=== PATIENT | male | born 1970 | race Caucasian/White ===

== ENCOUNTER 2021-05-07 09:54 | Inpatient (IN) | payer OTHER, SELFPAY ==
[2021-05-07] VITALS (22 sets, daily range): BP systolic 118–158; BP diastolic 84–120; PULSE 77–115; RESP 10–23; TEMP 36.6–37; O2SAT 95–100; BMI 48.2; BMI 48.0
--- NOTE | 2021-05-07 10:03 | EKG12_ITS ---
Test Reason : CP Blood Pressure : / mmHG Vent. Rate : 119 BPM Atrial Rate : 122 BPM P-R Int : 000 ms QRS Dur : 078 ms QT Int : 296 ms P-R-T Axes : 000 066 043 degrees QTc Int : 416 ms Atrial fibrillation with rapid ventricular response Abnormal ECG Confirmed by GALINA COHEN, RASTA ([id number]), editor index ELIF BRADFORD ([id number]) on 05/09/2021 8:37:15 AM Referred By: SHANNON Confirmed By:RASTA MOJICA MD
--- NOTE | 2021-05-07 10:06 | ED.VIS.CHEST ---
HPI History of Present Illness Chief Complaint: Chest Pain Detail of Chief Complaint: Chest pain and shortness of breath for 2 months Informant: patient Onset/Context/Timing Timing: Continuous Quality: Positive for Pressure Narrative Narrative: Patient presents to the emergency department after being evaluated at urgent care today. Patient states that over the last 2 months has been having chest pressure and shortness of breath with activity and exertion. Patient states that he breaks out into a cold sweat. Patient had an illness about 2 months ago where he was having to use his inhaler frequently and last about 12 days. He did not get tested for COVID-19. Patient states is not been right since that time. Patient was noted to be in A. fib RVR at urgent care and referred to the emergency department. Patient does not have a history of A. fib. He is a diabetic and has history of asthma. Prior Similar Symptoms: No CVD Risk Factors: Positive for Diabetes; Negative for Family History 1' </=55 and Smoking PE Risk Factors: Negative for Recent Travel/Surgery, Recent Immobilization, Prior DVT or PE and Cancer [facility] Medical History (Updated 05/07/21 @ 12:[address] Gisela Rodriguez, ) COPD (chronic obstructive pulmonary disease) Diabetes High cholesterol Hypertension Pneumonia Home Medications albuterol 2 mcg INHALATION Q4H PRN PRN 05/07/21 [History Last Taken Unknown] amlodipine 10 mg PO DAILY 05/07/21 [History Last Taken Unknown] carvedilol 25 mg PO BID 05/07/21 [History Last Taken Unknown] cyclobenzaprine 10 mg PO TID PRN 05/07/21 [History Last Taken Unknown] insulin glargine [Lantus Solostar U-100 Insulin] 33 unit SUBCUT BID 05/07/21 [History Last Taken Unknown] insulin lispro [Humalog U-100 Insulin] 20 unit SUBCUT TID 05/07/21 [History Last Taken Unknown] losartan 100 mg PO DAILY 05/07/21 [History Last Taken Unknown] omeprazole [Prilosec] 20 mg PO BID 05/07/21 [History Last Taken Unknown] Allergy/AdvReac Type Severity Reaction Status Date / Time gabapentin AdvReac Other Verified 05/07/21 09:54 tramadol AdvReac Other Verified 05/07/21 09:54 Surgical History (Updated 05/07/21 @ 10:05 by Jesus Colon) H/O rotator cuff surgery Social History Smoking Status: Current every day smoker tobacco type: cigarettes ROS ROS ED Review of Systems ROS Unobtainable: other Constitutional Constitutional ED: Reports lethargy; Denies chills, fever(s), sweats or weight loss Eyes Eyes: Denies blurry vision, change in vision or diplopia ENT ENT ED: Denies rhinorrhea or sore throat Cardiovascular Cardiovascular: Reports chest pain and racing heartbeat; Denies orthopnea Respiratory/Chest Respiratory/Chest: Reports dyspnea and dyspnea on exertion; Denies cough, orthopnea or sputum Gastrointestinal Gastrointestinal: Denies abdominal pain, diarrhea, nausea or vomiting Genitourinary Genitourinary ED: Denies dysuria, hematuria or urinary frequency Musculoskeletal Musculoskeletal: Denies arthralgias, back pain, myalgias or neck pain Integumentary Denies abscess, Abrasions or rash Neurologic Neurologic: Denies headache(s) or weakness Psychiatric Psychiatric: Denies anxiety, depression or suicidal thoughts Endocrine Endocrinology: Denies polydipsia, polyphagia or polyuria Hematologic/Lymphatic Hematologic/Lymphatic: Denies easy bleeding, easy bruising or lymphadenopathy Allergic/Immunologic Allergic/Immunologic ED: Denies mouth swelling, tongue swelling or urticaria EXAM Physical Exam Const Vital Signs: 05/07/21 09:55 05/07/21 10:04 05/07/21 10:07 Temperature 98.6 F Temperature Source Temporal Pulse Rate 77 Respiratory Rate 16 Respiratory Effort Normal Non-Labored Respiratory Pattern Normal Blood Pressure 158/96 H Blood Pressure Mean 116 Pulse Ox 96 Oxygen Delivery Method Room Air Room Air 05/07/21 10:56 05/07/21 11:24 05/07/21 11:54 Temperature 97.8 F Temperature Source Temporal Pulse Rate 95 103 H 103 H Respiratory Rate 11 L 10 L 14 Respiratory Effort Respiratory Pattern Blood Pressure 131/86 H 131/92 H 129/98 H Blood Pressure Mean 101 105 108 Pulse Ox 97 97 95 Oxygen Delivery Method Room Air Room Air 05/07/21 12:00 Temperature Temperature Source Pulse Rate 83 Respiratory Rate Respiratory Effort Respiratory Pattern Blood Pressure Blood Pressure Mean Pulse Ox Oxygen Delivery Method Positive well nourished and well developed General Appearance ED: well developed and NAD HEENT Reports TM's clear and moist mucous membranes normocephalic and atraumatic; Negative for trauma or tenderness Tympanic Membrane ED: Yes TM's clear Eyes PERRL and EOMs intact bilaterally General Eye ED: Negative for pale conjunctiva or scleral icterus Neck no lymphadenopathy, supple and no JVD General: Negative for tenderness Chest Wall inspection of chest normal and palpation of chest normal Chest: Negative for tenderness Resp normal respiratory effort and clear to auscultation bilaterally Effort and Inspection: Negative for respiratory distress or pain with movement Auscultation: Negative for rhonchi, wheezes or diminished lung sounds Cardio S1 normal heart sound, S2 normal heart sound and no murmurs; Negative for regular rate or regular rhythm Rate: tachycardic and other Other Details: Irregularly irregular and tachycardic Peripheral Pulses: pulses 2+ throughout GI normal to inspection, nondistended, normoactive bowel sounds, soft to palpation, non-tender, non-distended and no masses Back/Spine no CVA tenderness and no thoracic nor lumbar tenderness Extremity normal to inspection General Extremety ED: Negative for edema General Extremity: Negative for edema Neuro oriented x3, CN's II-XII intact bilaterally, no sensory deficits noted and gait normal Sensorium / Orientation: awake, alert, oriented to person, oriented to place and oriented to time Motor Exam: strength 5/5 throughout and strength abnormal Psych mental status grossly normal Skin no rashes or lesions noted and no wounds Heart Score History: Moderately Suspicious ECG: Nonspecific Repolarization Age: >45 - <65 years Risk Factors: 1 or 2 Risk Factors Troponin: </= Normal Limit Score: 4 MDM MDM Lab Data Labs: Laboratory Results - last 24 hr 05/07/21 05/07/21 05/07/21 10:20 10:20 10:20 WBC 10.8 RBC 4.89 Hgb 15.1 Hct 46.3 MCV 94.7 H MCH 30.9 MCHC 32.6 RDW Std Deviation 44.6 H RDW Coeff of Russ 13.0 Plt Count 206 MPV 11.3 Immature Gran % (Auto) 0.200 Neut % (Auto) 70.4 H Lymph % (Auto) 21.7 [place] % (Auto) 6.9 Eos % (Auto) 0.5 Baso % (Auto) 0.3 Absolute Neuts (auto) 7.6 Absolute Lymphs (auto) 2.34 Nucleated RBC % 0 PT 14.0 INR 1.1 APTT 29.3 D-Dimer Quant (PE/DVT) 0.37 Sodium 139 Potassium 4.0 Chloride 106 Carbon Dioxide 28.0 Anion Gap 5 BUN 14 Creatinine 1.13 Estim Creat Clear Calc 79.85 Est GFR (MDRD) Af Amer 88 Est GFR (MDRD) Non-Af 73 BUN/Creatinine Ratio 12.4 Glucose 161 H Calcium 8.9 Troponin I < 0.015 B-Natriuretic Peptide 05/07/21 10:20 WBC RBC Hgb Hct MCV MCH MCHC RDW Std Deviation RDW Coeff of Russ Plt Count MPV Immature Gran % (Auto) Neut % (Auto) Lymph % (Auto) [place] % (Auto) Eos % (Auto) Baso % (Auto) Absolute Neuts (auto) Absolute Lymphs (auto) Nucleated RBC % PT INR APTT D-Dimer Quant (PE/DVT) Sodium Potassium Chloride Carbon Dioxide Anion Gap BUN Creatinine Estim Creat Clear Calc Est GFR (MDRD) Af Amer Est GFR (MDRD) Non-Af BUN/Creatinine Ratio Glucose Calcium Troponin I B-Natriuretic Peptide 438.3 H Radiography Diagnostic Testing: Radiology Impression Chest X-Ray 05/07/21 10:15 IMPRESSION: Normal x-ray examination of the chest. Electronically Signed: Tim Lang MD at 10:50 EDT , Service support , Discharge Plan Triage Chief Complaint: Chest Pain ED Provider: Gisela Rodriguez Dx/Rx/DC Orders Clinical Impression: Atrial fibrillation with rapid ventricular response, Chest pain, Exertional dyspnea Prescriptions: No Action cyclobenzaprine 10 mg Tablet 10 mg PO TID PRN (Reason: Muscle Spasm) RF: 0 carvedilol 25 mg Tablet 25 mg PO BID RF: 0 amlodipine 10 mg Tablet 10 mg PO DAILY RF: 0 omeprazole [Prilosec] 20 mg Capsule,Delayed Release(Dr/Ec) 20 mg PO BID RF: 0 albuterol 90 mcg/actuation Aerosol 2 mcg INHALATION Q4H PRN PRN (Reason: SOB) RF: 0 losartan 100 mg Tablet 100 mg PO DAILY RF: 0 Humalog U-100 Insulin 100 unit/mL Cartridge 20 unit SUBCUT TID RF: 0 Lantus Solostar U-100 Insulin 100 unit/mL (3 mL) Insulin Pen 33 unit SUBCUT BID RF: 0 Primary Care Provider: Ryan Colbert Referrals: Ryan Colbert MD [Primary Care Provider] - Disposition Disposition: Acute Care Hospital [facility]
[2021-05-07] MEDS: Aspirin 81 MG TAB.CHEW 324 MG PO (10:12)
[2021-05-07] MEDS: 0.9% Normal Saline 1,000 ML 150 ML IV (10:13)
[2021-05-07] MEDS: dilTIAZem 25 MG/5 ML Vial 20 MG IV BOLUS (10:14)
--- NOTE | 2021-05-07 10:15 | RAD_ITS ---
STUDY: X-RAY CHEST REASON FOR EXAM: Male, 50 years old. Chest pain TECHNIQUE: Single AP portable view of the chest. COMPARISON: Comparison is made with prior study dated 08/21/2014. FINDINGS: EKG electrodes are seen. The lungs are clear and expanded. There is no demonstrated pleural abnormality. Normal size heart. Normal mediastinum and carlyn. Normal visualized pulmonary arteries. Normal visualized aortic arch and descending thoracic aorta. Normal visualized thoracic spine. Normal visualized ribs, clavicles, and shoulders. There is no demonstrated abnormality of the visualized soft tissue structures of the upper abdomen. RAD/Chest 1 View (Portable) IMPRESSION: Normal x-ray examination of the chest. Electronically Signed: Tim Lang MD at 10:50 EDT , Service support ,
[2021-05-07 10:31] LABS: Absolute Lymphocyte Count 2.34 X10^3/uL (0.83-4.51); Absolute Neutrophil Count 7.6 X10^3/uL (2.0-7.7); Basophil# 0.03 X10^3/uL; Basophil% 0.3 % (0-1); Eosinophil# 0.05 X10^3/uL; Eosinophils% 0.5 % (0-5); Hematocrit 46.3 % (40-54); Hemoglobin 15.1 g/dL (13.0-16.5); Lymphocyte # 2.34 X10^3/ul (0.83-4.51); Lymphocyte % 21.7 % (19-41); Mean Corp Hgb Conc 32.6 g/dL (32-36); Mean Corpuscular Hgb 30.9 pg (27.0-32.0); Mean Corpuscular Volume 94.7 fL (80-94); Mean Platelet Vol. 11.3 fl (6.2-12.0); Monocyte# 0.74 X10^3/uL; Monocyte% 6.9 % (0-10); NRBC Flagged by Analyzer 0 % (0-5); Neutrophil % 70.4 % (47-70); Platelet Count 206 K/mm3 (150-450); RBC Distribution Width SD 44.6 fl (35.1-43.9); Red Blood Count 4.89 M/mm3 (4.6-6.2); White Blood Count 10.8 K/mm3 (4.4-11.0)
[2021-05-07 10:37] LABS: International Normalized Ratio 1.1
[2021-05-07 10:38] LABS: Partial Thromboplast Time 29.3 Seconds (24.1-36.2)
[2021-05-07 10:40] LABS: D-Dimer Quantitative (DVT/PE) 0.37 FEU/ug/m (0.27-0.49)
[2021-05-07 10:44] LABS: Anion Gap 5 (5-15); BUN 14 mg/dL (7-18); BUN/Creat Ratio 12.4 RATIO (10-20); Calcium,Total 8.9 mg/dL (8.5-10.1); Chloride 106 mmol/L (98-107); Creatinine, Serum 1.13 mg/dL (0.70-1.30); EST Glomerular Filtration Rate 73 mL/min (>60); Est Glom Filt Rate - Afr Amer 88 mL/min (>60); Estimated Creatinine Clearance 79.85 ml/min; Glucose 161 mg/dL (74-106); Sodium Level 139 mmol/L (136-145)
[2021-05-07 10:47] LABS: BNP,B-Type NATRIURETIC PEPTIDE 438.3 pg/mL (0-100)
--- NOTE | 2021-05-07 11:25 | ED.RN ---
confirmed with provider that the pt is to have a cardizem drip.
--- NOTE | 2021-05-07 11:36 | NURSING ---
HOSPITALIST FOR DR HOPPER
--- NOTE | 2021-05-07 11:42 | HP.PCM.HOS_ITS ---
HPI - General General Date of Admission: 05/07/21 Date of Service: 05/07/21 Chief Complaint: SOB - 2 months HPI Narrative JHONATANNavi JORDAN, is a 50 M who presents with progressive shortness of breath ongoing for 2 months. Patient states that he had upper respiratory infection a couple of months ago. He subsequently has been progressive shortness of breath. He has associated chest discomfort and diaphoresis. This was getting progressively weak that he could only walk a few steps and be out of breath. He denied orthopnea or PND. He states he has chronic lower extremity leg edema. He went to see his primary care doctor and was referred to the ED. [facility] Medical History (Updated 05/07/21 @ 13:[address] Rand Crowley MD) Abnormal endoscopy of upper gastrointestinal tract COPD (chronic obstructive pulmonary disease) Diabetes High cholesterol Hypertension Pneumonia Home Medications amlodipine 10 mg PO DAILY 05/07/21 [History Last Taken 05/07/21] carvedilol 25 mg PO BID 05/07/21 [History Last Taken 05/07/21] insulin glargine [Lantus Solostar U-100 Insulin] 33 unit SUBCUT BID 05/07/21 [History Last Taken 05/06/21] insulin lispro [Humalog U-100 Insulin] 20 unit SUBCUT TID 05/07/21 [History Last Taken 05/06/21 04:00] losartan 100 mg PO DAILY 05/07/21 [History Last Taken 05/07/21] omeprazole [Prilosec] 20 mg PO BID 05/07/21 [History Last Taken 05/07/21] Allergy/AdvReac Type Severity Reaction Status Date / Time gabapentin AdvReac Other Verified 05/07/21 09:54 tramadol AdvReac Other Verified 05/07/21 09:54 Family History (Updated 05/07/21 @ 13:[address] Rand Crowley MD) Father Cancer Mother Diabetes Surgical History (Updated 05/07/21 @ 10:05 by Jesus Colon) H/O rotator cuff surgery Social History (Updated 05/07/21 @ 13:[address] Rand Crowley MD) Smoking Status: Former smoker alcohol intake: current ROS ROS Narrative Constitutional: Denies: Anorexia, Chills, Fever, Night Sweats, Weight Change Eyes: Denies: Blurred vision, Cataracts, Conjunctivae Inflammation, Pain, Redn ess, Vision Change HEENT: Denies: Difficulty Hearing, Difficulty Swallowing, Head Aches, Hearing Changes, Sinus Congestion, Sinus Drainage Cardiovascular: Admits to chest Pain, Orthopnea, Palpitations, shortness of breath Respiratory: Denies: Cough, Sputum production Gastrointestinal: Denies: Abdominal Pain, Nausea, Vomiting Genitourinary: Denies: Dysuria Musculoskeletal: Denies: Joint Pain, Joint stiffness, Joint swelling, Joint Tenderness Skin: Denies: Rash, Wounds Neurological: Denies: Numbness, Tingling, Focal weakness Vital Signs Vital Signs Vital Signs: 05/07/21 09:55 05/07/21 10:04 05/07/21 10:07 Temperature 98.6 F Temperature Source Temporal Pulse Rate 77 Respiratory Rate 16 Respiratory Effort Normal Non-Labored Respiratory Pattern Normal Blood Pressure 158/96 H Blood Pressure Mean 116 Pulse Ox 96 Oxygen Delivery Method Room Air Room Air 05/07/21 10:56 05/07/21 11:24 Temperature Temperature Source Pulse Rate 95 103 H Respiratory Rate 11 L 10 L Respiratory Effort Respiratory Pattern Blood Pressure 131/86 H 131/92 H Blood Pressure Mean 101 105 Pulse Ox 97 97 Oxygen Delivery Method Room Air Room Air Weight Weight: 152.3 kg Body Mass Index (BMI) 48.2 Physical Exam Narrative Physical exam: General: Alert, Oriented x3, Cooperative, No apparent distress, Well developed HEENT: Atraumatic Oral: Moist Mucosa Neck: Supple Lungs: Clear to auscultation Cardiovascular: HS I+II, regular, no murmurs Abdomen: Bowel Sounds Present, Soft, Non Tender Extremities: No edema Skin: No rashes, No breakdown Neurological: Grossly intact Psych/Mental Status: Appropriate Results Lab / Micro Data Result Diagrams: 05/08/21 06:30 05/08/21 06:30 Labs: Laboratory Results - last 24 hr 05/07/21 05/07/21 05/07/21 10:20 10:20 10:20 WBC 10.8 RBC 4.89 Hgb 15.1 Hct 46.3 MCV 94.7 H MCH 30.9 MCHC 32.6 RDW Std Deviation 44.6 H RDW Coeff of Russ 13.0 Plt Count 206 MPV 11.3 Immature Gran % (Auto) 0.200 Neut % (Auto) 70.4 H Lymph % (Auto) 21.7 [place] % (Auto) 6.9 Eos % (Auto) 0.5 Baso % (Auto) 0.3 Absolute Neuts (auto) 7.6 Absolute Lymphs (auto) 2.34 Nucleated RBC % 0 PT 14.0 INR 1.1 APTT 29.3 D-Dimer Quant (PE/DVT) 0.37 Sodium 139 Potassium 4.0 Chloride 106 Carbon Dioxide 28.0 Anion Gap 5 BUN 14 Creatinine 1.13 Estim Creat Clear Calc 79.85 Est GFR (MDRD) Af Amer 88 Est GFR (MDRD) Non-Af 73 BUN/Creatinine Ratio 12.4 Glucose 161 H Calcium 8.9 Troponin I < 0.015 B-Natriuretic Peptide 05/07/21 10:20 WBC RBC Hgb Hct MCV MCH MCHC RDW Std Deviation RDW Coeff of Russ Plt Count MPV Immature Gran % (Auto) Neut % (Auto) Lymph % (Auto) [place] % (Auto) Eos % (Auto) Baso % (Auto) Absolute Neuts (auto) Absolute Lymphs (auto) Nucleated RBC % PT INR APTT D-Dimer Quant (PE/DVT) Sodium Potassium Chloride Carbon Dioxide Anion Gap BUN Creatinine Estim Creat Clear Calc Est GFR (MDRD) Af Amer Est GFR (MDRD) Non-Af BUN/Creatinine Ratio Glucose Calcium Troponin I B-Natriuretic Peptide 438.3 H Radiology Impression Chest X-Ray 05/07/21 10:15 IMPRESSION: Normal x-ray examination of the chest. Electronically Signed: Tim Lang MD at 10:50 EDT , Service support , Assessment & Plan Assessment/Plan (1) Benign essential hypertension: (2) Morbid obesity: (3) Atrial fibrillation with rapid ventricular response: (4) Chest pain: QUALIFIERS: Chest pain type: unspecified Qualified Code(s): R07.9 - Chest pain, unspecified (5) CHF exacerbation: QUALIFIERS: Heart failure type: unspecified Qualified Code(s): I50.9 - Heart failure, unspecified PLAN: 1. A fib with RVR, newly diagnosed, in a patient with multiple comorbidities Started on Cardizem bolus and drip, will continue the same, continue on home carvedilol Check magnesium level 2D echo, Lovenox therapeutic dosing If patient does not convert to sinus rhythm, will consult cardiology to establish care 2. Acute CHF, no previous history of CHF, admitting BNPep is 438.3 Will get 2D echo, start on Lasix, CHF protocol 3. Hypertension, fairly uncontrolled, continue on home amlodipine, carvedilol, losartan 4. 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 Morbid obesity, BMI 48.2, lifestyle modification recommended 6. DVT PPx - therapeutic Lovenox SC Charges/Coding Visit Charges Inpatient E&M: 70439 Init Hosp L3
--- NOTE | 2021-05-07 12:06 | NURSING ---
[facility]
--- NOTE | 2021-05-07 13:33 | ECHOCS_ITS ---
Reason For Study: CHF Procedure This was a 2D Doppler, Color Flow transthoracic echocardiogram. The study was technically difficult. Contrast injection was performed. Exam performed portable in patient room. Left Ventricle Based upon the 2D echocardiographic and contrast enhanced images obtained there appears to be grossly normal left ventricular size, wall motion, and systolic function. The estimated ejection fraction is 55 %. Unable to assess diastolic dysfunction. Right Ventricle Normal RV size. Normal systolic function. Atria The left atrium is mildly enlarged. Normal right atrium. No doppler evidence for ASD. Mitral Valve There is no mitral annular calcification. Normal mitral valve. Trivial mitral valve insufficiency. Tricuspid Valve Normal tricuspid valve. Trivial tricuspid valve insufficiency. Right ventricular systolic pressure estimated to be 28 mmHg. Aortic Valve Trisinus/trileaflet aortic valve. Normal aortic valve. Pulmonic Valve The pulmonic valve is not well visualized. Great Vessels Mildly dilated aortic root. Pericardium/Pleural Trivial pericardial effusion. There are no echocardiographic indications of cardiac tamponade. Medication Diluted definity 2ml given slow IV push to enhance endocardial definition. MMode/2D Measurements & Calculations LVIDd: 5.7 cm IVSd: 1.1 cm Ao root diam: 4.2 cm LVIDs: 3.9 cm LVPWd: 1.1 cm RVDd: 3.8 cm FS: 30.5 % LAV(MOD-sp4): 91.9 ml LVAd ap4: 41.3 cm2 LVAs ap2: 24.3 cm2 LVLd ap4: 8.5 cm LVLs ap2: 6.0 cm EDV(MOD-sp4): 162.1 ml ESV(MOD-sp2): 81.7 ml EDV(sp4-el): 170.0 ml ESV(sp2-el): 84.2 ml LVAs ap4: 25.1 cm2 LVLs ap4: 7.4 cm ESV(MOD-sp4): 71.1 ml ESV(sp4-el): 72.1 ml EF(MOD-sp4): 56.1 % EF(sp4-el): 57.6 % SV(MOD-sp4): 90.9 ml SV(sp4-el): 97.9 ml LA A4 area: 25.6 cm2 LA dimension(2D): 4.6 cm RA A4 area: 15.8 cm2 Doppler Measurements & Calculations MV E max rios: 114.6 cm/sec Ao V2 max: 139.5 cm/sec LV V1 max: 84.0 cm/sec Ao max P.8 mmHg LV V1 max P.9 mmHg Ao V2 mean: 97.2 cm/sec Ao mean P.2 mmHg Ao V2 VTI: 25.5 cm PA V2 max: 66.9 cm/sec TR max rios: 251.9 cm/sec TR max P.4 mmHg ECHO/Echo Complete W/ Contrast Interpretation Summary The study was technically difficult. Contrast injection was performed. Based upon the 2D echocardiographic and contrast enhanced images obtained there appears to be grossly normal left ventricular size, wall motion, and systolic function. The estimated ejection fraction is 55 %. The left atrium is mildly enlarged. Trivial mitral valve insufficiency. Trivial tricuspid valve insufficiency. Mildly dilated aortic root. Trivial pericardial effusion. There are no echocardiographic indications of cardiac tamponade. Right ventricular systolic pressure estimated to be 28 mmHg. Unable to assess diastolic dysfunction. Ordering Physician: Rand Crowley Referring Physician: Kevin Colbert Performed By: Usha Howard, TAMELA, RVT
[2021-05-07] MEDS: Enoxaparin 150 MG/ML Syringe SC (16:16)
[2021-05-07] MEDS: Furosemide 40 MG/4 ML Vial IV (16:16)
[2021-05-07] MEDS: Carvedilol 25 MG Tablet PO (16:16)
[2021-05-07 16:36] LABS: Bedside Glucose 193 mg/dL (70-110)
[2021-05-07] MEDS: Insulin Lispro 100 UNIT/ML INSULN.PEN SC (21:21)
[2021-05-07] MEDS: Pantoprazole Sodium 20 MG Tablet PO (21:23)
[2021-05-07 21:31] LABS: Bedside Glucose 215 mg/dL (70-110)
[2021-05-08] VITALS (34 sets, daily range): BP systolic 104–143; BP diastolic 79–111; PULSE 80–117; RESP 11–26; TEMP 36.4–37.2; O2SAT 95–100
--- NOTE | 2021-05-08 05:14 | NURSING ---
Previous RN paused cardizem gtt at 0230 d/t pt having frequent pauses and pt's rhythm was in the 80s. This RN restarted gtt at 0515 d/t pt still being in afib and no further pauses noted. Po RN
[2021-05-08] MEDS: Enoxaparin 150 MG/ML Syringe SC (05:48)
[2021-05-08 06:43] LABS: Absolute Lymphocyte Count 1.65 X10^3/uL (0.83-4.51); Absolute Neutrophil Count 4.1 X10^3/uL (2.0-7.7); Basophil# 0.02 X10^3/uL; Basophil% 0.3 % (0-1); Eosinophil# 0.06 X10^3/uL; Eosinophils% 0.9 % (0-5); Hematocrit 45.8 % (40-54); Hemoglobin 14.8 g/dL (13.0-16.5); Lymphocyte # 1.65 X10^3/ul (0.83-4.51); Mean Corp Hgb Conc 32.3 g/dL (32-36); Mean Corpuscular Hgb 31.1 pg (27.0-32.0); Mean Corpuscular Volume 96.2 fL (80-94); Mean Platelet Vol. 11.1 fl (6.2-12.0); Monocyte# 0.51 X10^3/uL; NRBC Flagged by Analyzer 0 % (0-5); Neutrophil # 4.09 X10^3/uL (2.7-7.7); Neutrophil % 64.6 % (47-70); Platelet Count 175 K/mm3 (150-450); RBC Distribution Width CV 12.9 % (11.6-14.6); RBC Distribution Width SD 45.8 fl (35.1-43.9); Red Blood Count 4.76 M/mm3 (4.6-6.2); White Blood Count 6.3 K/mm3 (4.4-11.0)
[2021-05-08 07:12] LABS: ALB/GLOB Ratio 1.2 RATIO (0.9-2.4); AST(SGOT) 15 U/L (15-37); Alanine Aminotransfer ALT/SGPT 89 U/L (16-61); Albumin, Serum 3.4 g/dL (3.2-5.0); Alkaline Phosphatase 78 U/L (45-117); Anion Gap 3 (5-15); BUN 13 mg/dL (7-18); BUN/Creat Ratio 11.8 RATIO (10-20); Calcium,Total 8.8 mg/dL (8.5-10.1); Chloride 106 mmol/L (98-107); EST Glomerular Filtration Rate 75 mL/min (>60); Est Glom Filt Rate - Afr Amer 91 mL/min (>60); Estimated Creatinine Clearance 82.03 ml/min; Globulin 2.9 g/dL (2.2-4.2); Glucose 139 mg/dL (74-106); Protein, Total 6.3 g/dL (6.4-8.2); Sodium Level 142 mmol/L (136-145)
[2021-05-08 08:36] LABS: Bedside Glucose 132 mg/dL (70-110)
--- NOTE | 2021-05-08 08:40 | PN.HOSP_ITS ---
Subjective Subjective Patient was seen and examined. He feels much better. Had any chest pain or progressive shortness of breath. Not on oxygen. He has been diuresing Objective Data Objective Data Vital Signs: Vital Signs Temp Pulse Resp BP Pulse Ox 97.6 F L 99 17 135/88 H 98 05/08/21 06:00 05/08/21 07:00 05/08/21 07:00 05/08/21 07:00 05/08/21 07:04 Oxygen Flow Rate (L/min) 2 Oxygen Delivery Method Room Air Weight: 152.3 kg Body Mass Index (BMI) 48.0 Intake & Output: Intake and Output for Last 24 Hours 05/06/21 05/07/21 05/08/21 23:59 23:59 23:59 Intake Total 965.50 / 1070.50 196.25 / 196.25 Output Total 600 / 600 Balance 965.50 / 1070.50 -403.75 / -403.75 Lab / Micro Data Result Diagrams: 05/08/21 06:30 05/08/21 06:30 Labs: Laboratory Results - last 24 hr 05/07/21 05/07/21 05/07/21 10:20 10:20 10:20 WBC 10.8 RBC 4.89 Hgb 15.1 Hct 46.3 MCV 94.7 H MCH 30.9 MCHC 32.6 RDW Std Deviation 44.6 H RDW Coeff of Russ 13.0 Plt Count 206 MPV 11.3 Immature Gran % (Auto) 0.200 Neut % (Auto) 70.4 H Lymph % (Auto) 21.7 [place] % (Auto) 6.9 Eos % (Auto) 0.5 Baso % (Auto) 0.3 Absolute Neuts (auto) 7.6 Absolute Lymphs (auto) 2.34 Nucleated RBC % 0 PT 14.0 INR 1.1 APTT 29.3 D-Dimer Quant (PE/DVT) 0.37 Sodium 139 Potassium 4.0 Chloride 106 Carbon Dioxide 28.0 Anion Gap 5 BUN 14 Creatinine 1.13 Estim Creat Clear Calc 79.85 Est GFR (MDRD) Af Amer 88 Est GFR (MDRD) Non-Af 73 BUN/Creatinine Ratio 12.4 Glucose 161 H Calcium 8.9 Magnesium Total Bilirubin AST ALT Alkaline Phosphatase Troponin I < 0.015 B-Natriuretic Peptide Total Protein Albumin Globulin Albumin/Globulin Ratio POC Glucose 06/09/21 06/09/21 06/09/21 10:20 10:20 14:26 WBC RBC Hgb Hct MCV MCH MCHC RDW Std Deviation RDW Coeff of Russ Plt Count MPV Immature Gran % (Auto) Neut % (Auto) Lymph % (Auto) [facility] % (Auto) Eos % (Auto) Baso % (Auto) Absolute Neuts (auto) Absolute Lymphs (auto) Nucleated RBC % PT INR APTT D-Dimer Quant (PE/DVT) Sodium Potassium Chloride Carbon Dioxide Anion Gap BUN Creatinine Estim Creat Clear Calc Est GFR (MDRD) Af Amer Est GFR (MDRD) Non-Af BUN/Creatinine Ratio Glucose Calcium Magnesium 2.0 Total Bilirubin AST ALT Alkaline Phosphatase Troponin I < 0.015 B-Natriuretic Peptide 438.3 H Total Protein Albumin Globulin Albumin/Globulin Ratio POC Glucose 05/07/21 05/07/21 05/07/21 16:10 17:23 21:17 WBC RBC Hgb Hct MCV MCH MCHC RDW Std Deviation RDW Coeff of Russ Plt Count MPV Immature Gran % (Auto) Neut % (Auto) Lymph % (Auto) [facility] % (Auto) Eos % (Auto) Baso % (Auto) Absolute Neuts (auto) Absolute Lymphs (auto) Nucleated RBC % PT INR APTT D-Dimer Quant (PE/DVT) Sodium Potassium Chloride Carbon Dioxide Anion Gap BUN Creatinine Estim Creat Clear Calc Est GFR (MDRD) Af Amer Est GFR (MDRD) Non-Af BUN/Creatinine Ratio Glucose Calcium Magnesium Total Bilirubin AST ALT Alkaline Phosphatase Troponin I < 0.015 B-Natriuretic Peptide Total Protein Albumin Globulin Albumin/Globulin Ratio POC Glucose 193 H 215 H 05/08/21 05/08/21 05/08/21 06:30 06:30 08:26 WBC 6.3 RBC 4.76 Hgb 14.8 Hct 45.8 MCV 96.2 H MCH 31.1 MCHC 32.3 RDW Std Deviation 45.8 H RDW Coeff of Russ 12.9 Plt Count 175 MPV 11.1 Immature Gran % (Auto) 0.200 Neut % (Auto) 64.6 Lymph % (Auto) 26.0 [facility] % (Auto) 8.0 Eos % (Auto) 0.9 Baso % (Auto) 0.3 Absolute Neuts (auto) 4.1 Absolute Lymphs (auto) 1.65 Nucleated RBC % 0 PT INR APTT D-Dimer Quant (PE/DVT) Sodium 142 Potassium 4.0 Chloride 106 Carbon Dioxide 33.0 H Anion Gap 3 L BUN 13 Creatinine 1.10 Estim Creat Clear Calc 82.03 Est GFR (MDRD) Af Amer 91 Est GFR (MDRD) Non-Af 75 BUN/Creatinine Ratio 11.8 Glucose 139 H Calcium 8.8 Magnesium Total Bilirubin 0.90 AST 15 ALT 89 H Alkaline Phosphatase 78 Troponin I B-Natriuretic Peptide Total Protein 6.3 L Albumin 3.4 Globulin 2.9 Albumin/Globulin Ratio 1.2 POC Glucose 132 H Micro: Microbiology 05/07/21 11:45 Mucosa - Nose SARS-CoV-2 Antigen (Rapid) - Final Radiography Diagnostic Testing: Radiology Impression Chest X-Ray 05/07/21 10:15 IMPRESSION: Normal x-ray examination of the chest. Electronically Signed: Tim Lang MD at 10:50 EDT , Service support , Echocardiogram 05/07/21 13:33 Interpretation Summary The study was technically difficult. Contrast injection was performed. Based upon the 2D echocardiographic and contrast enhanced images obtained there appears to be grossly normal left ventricular size, wall motion, and systolic function. The estimated ejection fraction is 55 %. The left atrium is mildly enlarged. Trivial mitral valve insufficiency. Trivial tricuspid valve insufficiency. Mildly dilated aortic root. Trivial pericardial effusion. There are no echocardiographic indications of cardiac tamponade. Right ventricular systolic pressure estimated to be 28 mmHg. Unable to assess diastolic dysfunction. Ordering Physician: Rand Crowley Referring Physician: Kevin Colbert Performed By: Usha Howard, TAMELA, RVT Physical Exam Narrative Physical exam: General: Alert, Oriented x3, Cooperative, No apparent distress, Well developed HEENT: Atraumatic Oral: Moist Mucosa Neck: Supple Lungs: Clear to auscultation Cardiovascular: HS I+II, regular, no murmurs Abdomen: Bowel Sounds Present, Soft, Non Tender Extremities: No edema Assessment & Plan Assessment/Plan (1) Benign essential hypertension: (2) Morbid obesity: (3) Atrial fibrillation with rapid ventricular response: (4) Chest pain: QUALIFIERS: Chest pain type: unspecified Qualified Code(s): R07.9 - Chest pain, unspecified (5) CHF exacerbation: QUALIFIERS: Heart failure type: unspecified Qualified Code(s): I50.9 - Heart failure, unspecified PLAN: 1. A fib with RVR, newly diagnosed, remains in A. fib, on Cardizem drip 2D echo shows EF of 55%, normal LV function, left atrium slightly enlarged. Hold continue on carvedilol, wean off Cardizem, cardiology consult Continue on therapeutic Lovenox -will switch to Eliquis at discharge 2. Elevated BNPep likely secondary to #1. Probable Acute CHF, diastolic dysfunction Admitting BNPep 438.3, Continue on IV Lasix Twice daily, cardiology consult 3. History of gastric ulcers/hiatal hernia, status post EGD in [address] Escalera who did his EGD; patient had erosive gastritis continue on PPI 4. Hypertension, controlled, continue on home amlodipine, carvedilol, losartan 5. 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 Morbid obesity, BMI 48.2, lifestyle modification recommended 7. DVT PPx - therapeutic Lovenox SC Charges/Coding Visit Charges Inpatient E&M: 88903 Subs Hosp L3
[2021-05-08] MEDS: amLODIPine 10 MG Tablet PO (09:33)
[2021-05-08] MEDS: 0.9% Saline Lock 10 ML Syringe IV ×3 (09:33→17:13)
[2021-05-08] MEDS: Carvedilol 25 MG Tablet PO ×2 (09:33→21:33)
[2021-05-08] MEDS: Furosemide 40 MG/4 ML Vial IV ×2 (09:34→17:13)
[2021-05-08] MEDS: Pantoprazole Sodium 20 MG Tablet PO ×2 (09:34→21:33)
[2021-05-08] MEDS: Losartan Potassium 100 MG Tablet PO (09:34)
--- NOTE | 2021-05-08 10:50 | CASEMGMT ---
RN CM [employer] CM to room to meet with patient for initial transition planning/care coordination assessment. AURELIA DAIGLE introduced self and role at [facility]. Pt voices understanding and consents to assessment at this time. Pt resting in bed in no distress at this time. Pt is A/O at this time and answers all questions appropriately. Care providers, pharmacy, and demographics verified/updated at this time. PCP: Dr Colbert Specialists: Maty BOWER, Lora Tran, @ [facility] Preferred Pharmacy: [facility] Retail Insurance:MMO Prescription Benefit: Yes Living Will/HPOA: States does not have LW or HCPOA . Interested in more information but states does not want to talk with SW at this time to complete paperwork. Provided information on advanced directives and given Social Service rac card with number to call if chooses in the future to utilize [facility] social work for advanced directive completion. Educated patient that, if patient so chooses, can come back to [facility] and meet with a SW as an outpatient to complete health care advanced directives. Patient expresses understanding. LNOK: 2 sons: Ko and Jamel. Pt does not wish for them to be added on demographics w/their contact info at this time. Friend/neighbor, Allyssa Mckay, is listed as only contact. Pt states, if needed, Allyssa would know how to get in contact with his sons. Living Arrangements: Lives alone in one-story home w/5 steps to enter. Denies difficulty w/stairs. Independent w/ADL's and IADL's. Works full-time. Transportation: Pt states drives self and states no transportation concerns at this time. DME: States has the following DME: working glucometer w/supplies, nebulizer, BP machine. Pt states no need for further DME at this time. HHC/SNF: No history of either. No needs identified. Pt wishes to return home and states has no concerns with going home at time of discharge. CM to follow for any discharge planning/needs. Pt voices no concerns/needs at this time. Advised pt to ask for CM if any questions/concerns/needs arise. Voices understanding. PLAN: Home Silverio SPENCE RN, CM
[2021-05-08 11:20] LABS: Bedside Glucose 138 mg/dL (70-110)
[2021-05-08] MEDS: Insulin Lispro 100 UNIT/ML INSULN.PEN 20 UNIT SC ×2 (11:24→17:11)
--- NOTE | 2021-05-08 14:18 | CON.PCM.CA_ITS ---
Assessment & Plan Assessment/Plan (1) Atrial fibrillation with rapid ventricular response: PLAN: 50-year-old patient was admitted with symptoms of exertional dyspnea with a clinical diagnosis of diastolic heart failure with atrial fibrillation rapid ventricular rate Patient known to have history of diabetes, hypertension and morbidly obese He is a underlying rhythm is A. fib with RVR on admission which is better con trolled on the current medication. Cardiac evaluation with echocardiogram showed preserved LV systolic function with ejection fraction of around 55%, left atrium mildly enlarged with trivial MR. Plan and recommendations; 1. I reviewed all his current medication, based on [id number] risk score is a high risk for stroke Patient had a remote history of erosive gastritis and currently he is on proton pump inhibitor. We will start the patient on Eliquis/apixaban 5 mg twice daily 2. We will continue on beta-laura carvedilol 3. I added calcium channel laura Cardizem CD 120 mg twice daily for better control of his ventricular rate 4. Would recommend to follow-up as an outpatient with Dr. Pierce for continuation of cardiac care plan. 5. Also patient can be evaluated as outpatient with nuclear stress test to assess for myocardial ischemia. Due to the multiple risk factors and the recent onset of the A. fib. 6. If patient continues to be in pain A. fib as an outpatient to consider, synchronized cardioversion DCCV/outpatient setting. (2) CHF exacerbation: QUALIFIERS: Heart failure type: unspecified Qualified Code(s): I50.9 - Heart failure, unspecified (3) Benign essential hypertension: (4) Morbid obesity: (5) Alcohol abuse: (6) Exertional dyspnea: HPI Consult Data Date of Consult: 05/08/21 HPI Narrative HPI Narrative: JHONATAN JORDAN, is a 50 M who presents [facility] Medical History (Updated 05/07/21 @ 13:[address] Rand Crowley MD) Abnormal endoscopy of upper gastrointestinal tract COPD (chronic obstructive pulmonary disease) Diabetes High cholesterol Hypertension Pneumonia Home Medications amlodipine 10 mg PO DAILY 05/07/21 [History Last Taken 05/07/21] carvedilol 25 mg PO BID 05/07/21 [History Last Taken 05/07/21] insulin glargine [Lantus Solostar U-100 Insulin] 33 unit SUBCUT BID 05/07/21 [History Last Taken 05/06/21] insulin lispro [Humalog U-100 Insulin] 20 unit SUBCUT TID 05/07/21 [History Last Taken 05/06/21 04:00] losartan 100 mg PO DAILY 05/07/21 [History Last Taken 05/07/21] omeprazole [Prilosec] 20 mg PO BID 05/07/21 [History Last Taken 05/07/21] Allergy/AdvReac Type Severity Reaction Status Date / Time gabapentin AdvReac Other Verified 05/07/21 09:54 tramadol AdvReac Other Verified 05/07/21 09:54 Family History (Updated 05/07/21 @ 13:[address] Rand Crowley MD) Father Cancer Mother Diabetes Surgical History (Updated 05/07/21 @ 10:05 by Jesus Colon) H/O rotator cuff surgery Social History (Updated 05/07/21 @ 13:[address] Rand Crowley MD) Smoking Status: Former smoker alcohol intake: current Physical Exam Narrative Patient seen and evaluated at bedside with the nursing staff Comfortable in bed, not in acute distress Alert orientated x3 Cardiovascular examination, has underlying atrial fibrillation. S1-S2 is regular, there is no murmur, there is no gallop rhythm or pericardial rub. Chest examination clear to auscultation bilaterally Examination of the abdomen patient is morbidly obese soft Examination lower extremity no lower extremity edema, no clubbing or cyanosis Pedal pulses palpable +2. Objective Data Vital Signs: Vital Signs Temp Pulse Resp BP Pulse Ox 98.1 F 93 16 134/85 H 97 05/08/21 11:00 05/08/21 11:29 05/08/21 11:00 05/08/21 11:00 05/08/21 11:00 Oxygen Flow Rate (L/min) 2 Oxygen Delivery Method Room Air Weight: 335 lb 12.224 oz Body Mass Index (BMI) 48.0 Intake & Output: Intake and Output for Last 24 Hours 05/06/21 05/07/21 05/08/21 23:59 23:59 23:59 Intake Total 965.50 / 1070.50 481.25 / 481.25 Output Total 2100 / 2100 Balance 965.50 / 1070.50 -1618.75 / -1618.75 Lab / Micro Data Result Diagrams: 05/08/21 06:30 06/10/21 06:30 Labs: Laboratory Results - last 24 hr 05/07/21 05/07/21 05/07/21 14:26 16:10 17:23 WBC RBC Hgb Hct MCV MCH MCHC RDW Std Deviation RDW Coeff of Russ Plt Count MPV Immature Gran % (Auto) Neut % (Auto) Lymph % (Auto) Saunders % (Auto) Eos % (Auto) Baso % (Auto) Absolute Neuts (auto) Absolute Lymphs (auto) Nucleated RBC % Sodium Potassium Chloride Carbon Dioxide Anion Gap BUN Creatinine Estim Creat Clear Calc Est GFR (MDRD) Af Amer Est GFR (MDRD) Non-Af BUN/Creatinine Ratio Glucose Calcium Total Bilirubin AST ALT Alkaline Phosphatase Troponin I < 0.015 < 0.015 Total Protein Albumin Globulin Albumin/Globulin Ratio POC Glucose 193 H 05/07/21 05/08/21 05/08/21 21:17 06:30 06:30 WBC 6.3 RBC 4.76 Hgb 14.8 Hct 45.8 MCV 96.2 H MCH 31.1 MCHC 32.3 RDW Std Deviation 45.8 H RDW Coeff of Russ 12.9 Plt Count 175 MPV 11.1 Immature Gran % (Auto) 0.200 Neut % (Auto) 64.6 Lymph % (Auto) 26.0 Saunders % (Auto) 8.0 Eos % (Auto) 0.9 Baso % (Auto) 0.3 Absolute Neuts (auto) 4.1 Absolute Lymphs (auto) 1.65 Nucleated RBC % 0 Sodium 142 Potassium 4.0 Chloride 106 Carbon Dioxide 33.0 H Anion Gap 3 L BUN 13 Creatinine 1.10 Estim Creat Clear Calc 82.03 Est GFR (MDRD) Af Amer 91 Est GFR (MDRD) Non-Af 75 BUN/Creatinine Ratio 11.8 Glucose 139 H Calcium 8.8 Total Bilirubin 0.90 AST 15 ALT 89 H Alkaline Phosphatase 78 Troponin I Total Protein 6.3 L Albumin 3.4 Globulin 2.9 Albumin/Globulin Ratio 1.2 POC Glucose 215 H 05/08/21 05/08/21 08:26 11:16 WBC RBC Hgb Hct MCV MCH MCHC RDW Std Deviation RDW Coeff of Russ Plt Count MPV Immature Gran % (Auto) Neut % (Auto) Lymph % (Auto) Saunders % (Auto) Eos % (Auto) Baso % (Auto) Absolute Neuts (auto) Absolute Lymphs (auto) Nucleated RBC % Sodium Potassium Chloride Carbon Dioxide Anion Gap BUN Creatinine Estim Creat Clear Calc Est GFR (MDRD) Af Amer Est GFR (MDRD) Non-Af BUN/Creatinine Ratio Glucose Calcium Total Bilirubin AST ALT Alkaline Phosphatase Troponin I Total Protein Albumin Globulin Albumin/Globulin Ratio POC Glucose 132 H 138 H Micro: Microbiology 05/07/21 11:45 Mucosa - Nose SARS-CoV-2 Antigen (Rapid) - Final Cardiology Labs/Tests 05/07/21 14:26: Troponin I < 0.015 05/07/21 17:23: Troponin I < 0.015 05/08/21 06:30: WBC 6.3, RBC 4.76, Hgb 14.8, Hct 45.8, MCV 96.2 H, MCH 31.1, MCHC 32.3, Plt Count 175, MPV 11.1, Immature Gran % (Auto) 0.200, Neut % (Auto) 64.6, Lymph % (Auto) 26.0, Saunders % (Auto) 8.0, Eos % (Auto) 0.9, Baso % (Auto) 0.3, Absolute Neuts (auto) 4.1, Nucleated RBC % 0 05/08/21 06:30: Sodium 142, Potassium 4.0, Chloride 106, Carbon Dioxide 33.0 H, Anion Gap 3 L, BUN 13, Creatinine 1.10, Est GFR (MDRD) Af Amer 91, Est GFR (MDRD) Non-Af 75, BUN/Creatinine Ratio 11.8, Glucose 139 H, Calcium 8.8, Total Bilirubin 0.90 Rhythm: A. fib with RVR EKG: Atrial fibrillation with rapid ventricular rate. ECHO: Preserved LV systolic function with ejection fraction of 55%. Radiography Diagnostic Testing: Radiology Impression Echocardiogram 05/07/21 13:33 Interpretation Summary The study was technically difficult. Contrast injection was performed. Based upon the 2D echocardiographic and contrast enhanced images obtained there appears to be grossly normal left ventricular size, wall motion, and systolic function. The estimated ejection fraction is 55 %. The left atrium is mildly enlarged. Trivial mitral valve insufficiency. Trivial tricuspid valve insufficiency. Mildly dilated aortic root. Trivial pericardial effusion. There are no echocardiographic indications of cardiac tamponade. Right ventricular systolic pressure estimated to be 28 mmHg. Unable to assess diastolic dysfunction. Ordering Physician: Rand Crowley Referring Physician: Kevin Colbert Performed By: Usha Howard, TAMELA, RVT
[2021-05-08] MEDS: dilTIAZem CD 120 MG Capsule PO ×2 (15:07→21:33)
[2021-05-08] MEDS: Insulin Lispro 100 UNIT/ML INSULN.PEN SC (17:12)
[2021-05-08 17:26] LABS: Bedside Glucose 177 mg/dL (70-110)
[2021-05-08] MEDS: APIXABAN 5 MG TABLET PO (21:33)
[2021-05-08 21:40] LABS: Bedside Glucose 87 mg/dL (70-110)
[2021-05-09] VITALS (10 sets, daily range): BP systolic 127–141; BP diastolic 82–99; PULSE 78–118; RESP 16–18; TEMP 36.4–36.7; O2SAT 94–97
[2021-05-09 06:31] LABS: ALB/GLOB Ratio 1.1 RATIO (0.9-2.4); AST(SGOT) 12 U/L (15-37); Alanine Aminotransfer ALT/SGPT 70 U/L (16-61); Albumin, Serum 3.4 g/dL (3.2-5.0); Alkaline Phosphatase 77 U/L (45-117); Anion Gap 5 (5-15); BUN 15 mg/dL (7-18); BUN/Creat Ratio 14.2 RATIO (10-20); Calcium,Total 8.9 mg/dL (8.5-10.1); Chloride 105 mmol/L (98-107); Creatinine, Serum 1.06 mg/dL (0.70-1.30); EST Glomerular Filtration Rate 78 mL/min (>60); Est Glom Filt Rate - Afr Amer 95 mL/min (>60); Estimated Creatinine Clearance 85.13 ml/min; Globulin 3.1 g/dL (2.2-4.2); Glucose 104 mg/dL (74-106); Potassium 3.7 mmol/L (3.5-5.1); Protein, Total 6.5 g/dL (6.4-8.2); Sodium Level 143 mmol/L (136-145)
[2021-05-09] MEDS: dilTIAZem CD 120 MG Capsule PO ×2 (08:16→20:56)
[2021-05-09] MEDS: Losartan Potassium 100 MG Tablet PO (08:16)
[2021-05-09] MEDS: 0.9% Saline Lock 10 ML Syringe IV (08:16)
[2021-05-09] MEDS: Carvedilol 25 MG Tablet PO ×2 (08:16→20:57)
[2021-05-09] MEDS: APIXABAN 5 MG TABLET PO ×2 (08:17→20:57)
[2021-05-09] MEDS: Furosemide 40 MG/4 ML Vial IV (08:17)
[2021-05-09] MEDS: Pantoprazole Sodium 20 MG Tablet PO ×2 (08:17→20:59)
[2021-05-09 08:26] LABS: Bedside Glucose 118 mg/dL (70-110)
--- NOTE | 2021-05-09 09:32 | CASEMGMT ---
AURELIA DAIGLE NOTE: Pt screened with [facility] Palliative Care Screening Tool for strata 3, pt did not meet criteria. Silverio TORRESN RN CM
[2021-05-09 11:25] LABS: Bedside Glucose 131 mg/dL (70-110)
[2021-05-09] MEDS: Insulin Lispro 100 UNIT/ML INSULN.PEN 20 UNIT SC ×2 (12:44→18:12)
[2021-05-09] MEDS: Digoxin 125 MCG Tablet PO (15:36)
--- NOTE | 2021-05-09 15:40 | CASEMGMT ---
AURELIA DAIGLE NOTE: Pt will be going home on Eliquis, which has been e-scribed to [facility] Retail pharmacy. Pt given Eliquis savings card and he activated same. Card tubed to [facility] retail pharmacy to be applied. Per [facility] pharmacist, pt is eligible for 30-day free trial, and then he can use the $10/month co-pay card thereafter. Juan Jose states he will return the activated co-pay card to pt when they deliver the Eliquis to pt. Per Juan Jose, prior auth will be required for refills. Pt made aware of all of the above. AURELIA DAIGLE instructed to inform wire twisting machine operator @ f/u appt that prior-auth is needed for Eliquis refills. He voices understanding. Pt denies other needs/concerns/questions. Silverio SPENCE RN, CM
--- NOTE | 2021-05-09 15:54 | DS.PCM_ITS ---
Providers Date of Admission: 05/07/21 Date of Discharge: 05/09/21 Primary Care Physician: Dr. Ryan Colbert MD Consultations 05/08/21 12:02 Consult: Cardiology Routine Consulting Provider: Marjorie Conti Reason for Consult: A fib with RVR, newly diagnosed EMERGENT Consult: No MD Notified: Yes Date Notified: 05/08/21 Time Notified: 12:31 Method of Notification: Text Reason For Visit: CHEST PAIN, A FIB WITH RVR Diagnosis Discharge Diagnosis (1) Atrial fibrillation with rapid ventricular response: Status: Resolved Code(s): I48.91 - Unspecified atrial fibrillation (2) CHF exacerbation: Status: Acute Code(s): I50.9 - Heart failure, unspecified Qualifiers: Heart failure type: unspecified Qualified Code(s): I50.9 - Heart failure, unspecified (3) Benign essential hypertension: Status: Chronic Code(s): I10 - Essential (primary) hypertension (4) Morbid obesity: Status: Chronic Code(s): E66.01 - Morbid (severe) obesity due to excess calories (5) Alcohol abuse: Status: Chronic Code(s): F10.10 - Alcohol abuse, uncomplicated (6) Exertional dyspnea: Status: Acute Code(s): R06.00 - Dyspnea, unspecified Medications at Discharge Home Medications Humalog U-100 Insulin 20 unit SUBCUT TID 05/07/21 Lantus Solostar U-100 Insulin 33 unit SUBCUT BID 05/07/21 carvedilol 25 mg PO BID 05/07/21 losartan 100 mg PO DAILY 05/07/21 omeprazole 20 mg PO BID 05/07/21 apixaban [Eliquis] 5 mg PO BID 30 Days #60 tab 05/09/21 digoxin 125 mcg PO DAILY 30 Days #30 tab 05/09/21 diltiazem HCl 120 mg PO BID 30 Days #60 cap 05/09/21 furosemide 40 mg PO BIDLX 60 Days #120 tab 05/09/21 Hospital Course Operations None Procedures 2-D Echocardiogram Summary of Care Provided Minutes Spent on Discharge: 55 Hospital Course: 50-year-old male with past medical history of hypertension, type II DM who comes in with complaints of shortness of breath ongoing for about 2 months. Patient stated that he had upper respiratory illness 2 months ago. He never got Tested for Covid. Subsequently he has been progressively short of breath with exertion. Lately he can walk only a few feet and is very short of breath. He denied orthopnea or PND. He admits to bilateral leg edema. He went to see his primary care doctor and was referred to the emergency room. In emergency room he was found to have A. fib with RVR. His BNP was 438.3. Patient was admitted to PCU and managed at A. fib with RVR on Cardizem drip. He was also started on Lasix with improvement. His heart rate was difficult to control. He had 2D echo done that showed an EF of 55%. Patient was transitioned to p.o. Cardizem as well as his Coreg. Heart rate was still not controlled. Cardiology was consulted. Patient's Coreg was switched to metoprolol with better control of the heart rate. He was discharged also oral Lasix. He will follow up with his primary doctor within 1 to 2 weeks. He was given CHF education. Physical Exam Narrative Physical exam: General: Alert, Oriented x3, Cooperative, No apparent distress, Well developed HEENT: Atraumatic Oral: Moist Mucosa Neck: Supple Lungs: Clear to auscultation Cardiovascular: HS I+II, regular, no murmurs Abdomen: Bowel Sounds Present, Soft, Non Tender Extremities: No edema Weight / BMI Weight Weight: 152.3 kg Body Mass Index (BMI) 48.0 ABG / Lab / Microbiology Data Result Diagrams: 05/08/21 06:30 05/10/21 08:01 Laboratory: Laboratory Results - last 24 hr 05/08/21 05/08/21 05/09/21 17:11 21:29 05:55 Sodium 143 Potassium 3.7 Chloride 105 Carbon Dioxide 33.0 H Anion Gap 5 BUN 15 Creatinine 1.06 Estim Creat Clear Calc 85.13 Est GFR (MDRD) Af Amer 95 Est GFR (MDRD) Non-Af 78 BUN/Creatinine Ratio 14.2 Glucose 104 Calcium 8.9 Total Bilirubin 0.90 AST 12 L ALT 70 H Alkaline Phosphatase 77 Total Protein 6.5 Albumin 3.4 Globulin 3.1 Albumin/Globulin Ratio 1.1 POC Glucose 177 H 87 05/09/21 05/09/21 08:15 11:21 Sodium Potassium Chloride Carbon Dioxide Anion Gap BUN Creatinine Estim Creat Clear Calc Est GFR (MDRD) Af Amer Est GFR (MDRD) Non-Af BUN/Creatinine Ratio Glucose Calcium Total Bilirubin AST ALT Alkaline Phosphatase Total Protein Albumin Globulin Albumin/Globulin Ratio POC Glucose 118 H 131 H Microbiology: Microbiology 05/07/21 11:45 Mucosa - Nose SARS-CoV-2 Antigen (Rapid) - Final D/C Instructions Discharge Diet: Low fat / Low cholesterol, 2000 Calorie Control Diet, 6 Cup Fluid Restriction and 2000 mg Sodium Diet Weight Bearing Status: Weight bearing as tolerated Meaningful Use Info Meaningful Use Diagnoses (Choose all that apply): CHF CHF AMERICA/ARB ordered at discharge?: No Reason AMERICA/ARB not ordered?: Not indicated Documented LVEF (%): 55 Discharge Plan Admission Admit Date/Time: 05/07/21 11:42 Primary Reason for Your Visit: A. fib with RVR/CHF Attending Provider: Rand Crowley Primary Care Provider: Ryan Colbert Consulting Providers: Marjorie Conti Instructions Patient Instructions: ED Chest Pain, Noncardiac Additional Instructions / Restrictions: Patient Problems: Altered Health Status related to Hospitalization Patient Goals: *Optimal Level of Health *Keep Appointments *Medication Compliance *Remain SafePatient Problems: Altered Health Status related to Hospitalization Patient Goals: *Optimal Level of Health *Keep Appointments *Medication Compliance *Remain SafeContinue to take all your medications as prescribed. Take note of changes to your medication. Continue on a low-fat low-salt diet. Restrict your total fluid intake to less than 1500 mils. Weigh yourself every day. Let your doctor know when you gain more than 2 pounds of weight. Follow-up with your primary care doctor in 1 to 2 weeks. Follow-up with the professional volleyball player in 2 weeks. You would need repeat blood work to check on your kidney function within a week of discharge. Discharge Orders/Prescriptions Prescriptions: New diltiazem HCl 120 mg Capsule,Extended Release 24hr 120 mg PO BID 30 Days Qty: 60 RF: 0 Eliquis 5 mg Tablet 5 mg PO BID 30 Days Qty: 60 RF: 0 furosemide 40 mg Tablet 40 mg PO BIDLX 60 Days Qty: 120 RF: 0 digoxin 125 mcg (0.125 mg) Tablet 125 mcg PO DAILY 30 Days Qty: 30 RF: 0 Continued carvedilol 25 mg Tablet 25 mg PO BID RF: 0 omeprazole 20 mg Capsule,Delayed Release(Dr/Ec) 20 mg PO BID RF: 0 losartan 100 mg Tablet 100 mg PO DAILY RF: 0 Humalog U-100 Insulin 100 unit/mL Cartridge 20 unit SUBCUT TID RF: 0 Lantus Solostar U-100 Insulin 100 unit/mL (3 mL) Insulin Pen 33 unit SUBCUT BID RF: 0 Discontinued amlodipine 10 mg Tablet 10 mg PO DAILY RF: 0 Referrals / Follow Up: Ryan Colbert MD [Primary Care Provider] - Within 2 Weeks (Please call to schedule follow up appointment) Zeferino Pierce MD [STAFF PHYSICIAN] - Within 2 Weeks (Please call to schedule follow up appointment) Disposition Disposition (needs filled in before D/C Order can be placed): Home, self care Charges/Coding Visit Charges Inpatient E&M: 97545 Disch Hosp
--- NOTE | 2021-05-09 16:25 | PCM.PN.CARD ---
Subjective Subjective Patient seen and evaluated today at bedside with the nursing staff Shortness of breath is improving. Objective Data Vital Signs: Vital Signs Temp Pulse Resp BP Pulse Ox 97.7 F L 85 18 133/82 H 96 05/09/21 15:20 05/09/21 15:36 05/09/21 15:20 05/09/21 15:20 05/09/21 15:20 Oxygen Flow Rate (L/min) 2 Oxygen Delivery Method Room Air Weight: 335 lb 12.224 oz Body Mass Index (BMI) 48.0 Intake & Output: Intake and Output for Last 24 Hours 05/07/21 05/08/21 05/09/21 23:59 23:59 23:59 Intake Total 965.50 / 1070.50 1161.91 / 1161.91 410 / 410 Output Total 3950 / 3950 1525 / 1525 Balance 965.50 / 1070.50 -2788.09 / -2788.09 -1115 / -1115 Lab / Micro Data Result Diagrams: 05/08/21 06:30 05/09/21 05:55 Labs: Laboratory Results - last 24 hr 05/08/21 05/08/21 05/09/21 17:11 21:29 05:55 Sodium 143 Potassium 3.7 Chloride 105 Carbon Dioxide 33.0 H Anion Gap 5 BUN 15 Creatinine 1.06 Estim Creat Clear Calc 85.13 Est GFR (MDRD) Af Amer 95 Est GFR (MDRD) Non-Af 78 BUN/Creatinine Ratio 14.2 Glucose 104 Calcium 8.9 Total Bilirubin 0.90 AST 12 L ALT 70 H Alkaline Phosphatase 77 Total Protein 6.5 Albumin 3.4 Globulin 3.1 Albumin/Globulin Ratio 1.1 POC Glucose 177 H 87 05/09/21 05/09/21 08:15 11:21 Sodium Potassium Chloride Carbon Dioxide Anion Gap BUN Creatinine Estim Creat Clear Calc Est GFR (MDRD) Af Amer Est GFR (MDRD) Non-Af BUN/Creatinine Ratio Glucose Calcium Total Bilirubin AST ALT Alkaline Phosphatase Total Protein Albumin Globulin Albumin/Globulin Ratio POC Glucose 118 H 131 H Micro: Microbiology 05/07/21 11:45 Mucosa - Nose SARS-CoV-2 Antigen (Rapid) - Final Cardiology Labs/Tests 05/09/21 05:55: Sodium 143, Potassium 3.7, Chloride 105, Carbon Dioxide 33.0 H, Anion Gap 5, BUN 15, Creatinine 1.06, Est GFR (MDRD) Af Amer 95, Est GFR (MDRD) Non-Af 78, BUN/Creatinine Ratio 14.2, Glucose 104, Calcium 8.9, Total Bilirubin 0.90 Rhythm: A. fib with RVR EKG: Underlying atrial fibrillation Assessment & Plan Assessment/Plan (1) Atrial fibrillation with rapid ventricular response: PLAN: 50-year-old patient, presented with shortness of breath palpitation With a clinical diagnosis of acute on chronic diastolic heart failure Patient had morbid obesity, hypertension, and alcohol abuse Currently he is on rate control with Cardizem, digoxin as well he is on anticoagulation with apixaban. Plan recommendations; 1. I reviewed and discussed all his current medication in detail with the patient as well as nursing staff 2. Based onCHads-Vasc score high risk for stroke and patient is on apixaban 3. Advised follow-up in the cardiology clinic for continuation of cardiac care and possible monitoring with event monitor. 4. Echocardiographic evaluation LV function is preserved. (2) CHF exacerbation: QUALIFIERS: Heart failure type: unspecified Qualified Code(s): I50.9 - Heart failure, unspecified (3) Morbid obesity: (4) Benign essential hypertension: (5) Chest pain: QUALIFIERS: Chest pain type: unspecified Qualified Code(s): R07.9 - Chest pain, unspecified (6) Alcohol abuse:
[2021-05-09] MEDS: Furosemide 40 MG Tablet PO (17:19)
[2021-05-09 17:25] LABS: Bedside Glucose 170 mg/dL (70-110)
[2021-05-09] MEDS: Insulin Lispro 100 UNIT/ML INSULN.PEN SC ×2 (18:12→20:58)
--- NOTE | 2021-05-09 18:25 | PCM.PN.HOSP ---
Subjective Subjective Patient was seen and examined. His HR has been fluctuating. Digoxin was added to his meds by cardiology. HR after more than 4 hrs remain uncontrolled. He denied any chest pain, dizziness or SOB. Objective Data Objective Data Vital Signs: Vital Signs Temp Pulse Resp BP Pulse Ox 97.7 F L 85 18 133/82 H 96 05/09/21 15:20 05/09/21 15:36 05/09/21 15:20 05/09/21 15:20 05/09/21 15:20 Oxygen Flow Rate (L/min) 2 Oxygen Delivery Method Room Air Weight: 152.3 kg Body Mass Index (BMI) 48.0 Intake & Output: Intake and Output for Last 24 Hours 05/07/21 05/08/21 05/09/21 23:59 23:59 23:59 Intake Total 965.50 / 1070.50 1161.91 / 1161.91 1130 / 1130 Output Total 3950 / 3950 1525 / 1525 Balance 965.50 / 1070.50 -2788.09 / -2788.09 -395 / -395 Lab / Micro Data Result Diagrams: 05/08/21 06:30 05/09/21 05:55 Labs: Laboratory Results - last 24 hr 05/08/21 05/09/21 05/09/21 21:29 05:55 08:15 Sodium 143 Potassium 3.7 Chloride 105 Carbon Dioxide 33.0 H Anion Gap 5 BUN 15 Creatinine 1.06 Estim Creat Clear Calc 85.13 Est GFR (MDRD) Af Amer 95 Est GFR (MDRD) Non-Af 78 BUN/Creatinine Ratio 14.2 Glucose 104 Calcium 8.9 Total Bilirubin 0.90 AST 12 L ALT 70 H Alkaline Phosphatase 77 Total Protein 6.5 Albumin 3.4 Globulin 3.1 Albumin/Globulin Ratio 1.1 POC Glucose 87 118 H 05/09/21 05/09/21 11:21 17:17 Sodium Potassium Chloride Carbon Dioxide Anion Gap BUN Creatinine Estim Creat Clear Calc Est GFR (MDRD) Af Amer Est GFR (MDRD) Non-Af BUN/Creatinine Ratio Glucose Calcium Total Bilirubin AST ALT Alkaline Phosphatase Total Protein Albumin Globulin Albumin/Globulin Ratio POC Glucose 131 H 170 H Micro: Microbiology 05/07/21 11:45 Mucosa - Nose SARS-CoV-2 Antigen (Rapid) - Final Physical Exam Narrative Physical exam: General: Alert, Oriented x3, Cooperative, No apparent distress, Well developed HEENT: Atraumatic Oral: Moist Mucosa Neck: Supple Lungs: Clear to auscultation Cardiovascular: HS I+II, regular, no murmurs Abdomen: Bowel Sounds Present, Soft, Non Tender Extremities: No edema Assessment & Plan Assessment/Plan (1) Atrial fibrillation with rapid ventricular response: (2) CHF exacerbation: QUALIFIERS: Heart failure type: unspecified Qualified Code(s): I50.9 - Heart failure, unspecified (3) Benign essential hypertension: (4) Morbid obesity: (5) Alcohol abuse: (6) Exertional dyspnea: PLAN: 1. A fib with RVR, newly diagnosed, remains in A. fib, Off cardizem drip. On carvedilol, cardizem and now digoxin and Eliquis 2D echo shows EF of 55%, normal LV function, left atrium slightly enlarged. Will keep overnight and reassess in am 2.Acute CHF, diastolic dysfunction, EF 55%, present on admission Patient clinically in heart failure at admission Admitting BNPep 438.3, Continue on IV Lasix Twice daily, CHF protocllcardiology following 3. History of gastric ulcers/hiatal hernia, status post EGD in [address] Escalera who did his EGD; patient had erosive gastritis continue on PPI 4. Hypertension, controlled, continue on home amlodipine, carvedilol, losartan 5. 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 Morbid obesity, BMI 48.2, lifestyle modification recommended 7. DVT PPx - therapeutic Lovenox SC Charges/Coding Visit Charges Inpatient E&M: 56817 Subs Hosp L2
[2021-05-09 20:35] LABS: Bedside Glucose 161 mg/dL (70-110)
[2021-05-10] VITALS (12 sets, daily range): BP systolic 118–144; BP diastolic 75–106; PULSE 54–96; RESP 18; TEMP 36.3–37; O2SAT 97–100
[2021-05-10] MEDS: dilTIAZem CD 120 MG Capsule PO (07:58)
[2021-05-10] MEDS: Losartan Potassium 100 MG Tablet PO (07:58)
[2021-05-10] MEDS: Carvedilol 25 MG Tablet PO (07:59)
[2021-05-10] MEDS: APIXABAN 5 MG TABLET PO (07:59)
[2021-05-10] MEDS: Digoxin 125 MCG Tablet PO (07:59)
[2021-05-10] MEDS: Pantoprazole Sodium 20 MG Tablet PO (08:00)
[2021-05-10] MEDS: Furosemide 40 MG Tablet PO (08:00)
--- NOTE | 2021-05-10 08:07 | NURSING ---
Patient blood pressure elevated 132/106. HR resting 60 with ambulation 150-160's. Provider informed. AM medications given per order.
[2021-05-10 08:22] LABS: Anion Gap 7 (5-15); BUN 19 mg/dL (7-18); BUN/Creat Ratio 16.8 RATIO (10-20); Calcium,Total 9.2 mg/dL (8.5-10.1); Chloride 106 mmol/L (98-107); Creatinine, Serum 1.13 mg/dL (0.70-1.30); EST Glomerular Filtration Rate 73 mL/min (>60); Est Glom Filt Rate - Afr Amer 88 mL/min (>60); Estimated Creatinine Clearance 79.85 ml/min; Glucose 93 mg/dL (74-106); Potassium 3.5 mmol/L (3.5-5.1); Sodium Level 141 mmol/L (136-145)
[2021-05-10 09:26] LABS: Bedside Glucose 95 mg/dL (70-110)
[2021-05-10 11:15] LABS: Bedside Glucose 108 mg/dL (70-110)
[2021-05-10] MEDS: Insulin Lispro 100 UNIT/ML INSULN.PEN 20 UNIT SC (12:30)
[2021-05-10] MEDS: Metoprolol Tartrate 50 MG Tablet PO (12:30)
--- NOTE | 2021-05-12 13:37 | NURSING ---
RNOXANA DC F/U Call: DC Date: 05/09/21 DC Diagnosis: Discharge Diagnosis (1) Atrial fibrillation with rapid ventricular response (2) CHF exacerbation (3) Benign essential hypertension (4) Morbid obesity (5) Alcohol abuse (6) Exertional dyspnea DC Disposition: Home Lace/Strata: 10/01 Called patient listed cell number, no answer. VM did identify correct patient and Vm left to return call to this flex o writer operator or primary RNCM. JERARDO Dorsey
== END 2021-05-10 17:06 | disposition home or self-care (01) | DRG 291 ==
LOC: ED 12:28 → PCU 12:35
PROVIDERS: Admitting Provider Internal Medicine; Emergency Provider Emergency Medicine; PCP Family Medicine; Visit Provider Internal Medicine
DX: I11.0 Hypertensive heart disease with heart failure (principal); I50.31 Acute diastolic (congestive) heart failure; Z68.42 Body mass index [BMI] 45.0-49.9, adult; I48.91 Unspecified atrial fibrillation; E11.9 Type 2 diabetes mellitus without complications; E66.01 Morbid (severe) obesity due to excess calories; J44.9 Chronic obstructive pulmonary disease, unspecified; E11.42 Type 2 diabetes mellitus with diabetic polyneuropathy; E78.00 Pure hypercholesterolemia, unspecified; F10.10 Alcohol abuse, uncomplicated; Z79.899 Other long term (current) drug therapy; Z79.4 Long term (current) use of insulin; Z87.11 Personal history of peptic ulcer disease; Z87.891 Personal history of nicotine dependence
CPT/HCPCS: 36415; 71045; 80048; 80053; 82962; 83735; 83880; 84484; 85025; 85379; 85610; 85730; 87426; 93005; 93306; 97802; 99285; J7030; Q9957; A4216; C8929; J1940; J3490

== ENCOUNTER → 2021-07-01 06:58 | Outpatient (CLI) | payer OTHER, SELFPAY ==
[2021-06-16 09:54] VITALS: BMI 46.7
== END ==
PROVIDERS: PCP Family Medicine; Referring Provider Physician Assistant Medical; Visit Provider Physician Assistant Medical
DX: I48.11 Longstanding persistent atrial fibrillation (principal); I10 Essential (primary) hypertension
CPT/HCPCS: 78452; 93017; A9500; A4216; J2785

== ENCOUNTER 2021-08-05 08:47 | Day surgery (SDC) | payer OTHER, SELFPAY ==
[2021-06-16 09:54] VITALS: BMI 46.7
[2021-07-15 10:46] LABS: Absolute Lymphocyte Count 2.28 X10^3/uL (0.83-4.51); Absolute Neutrophil Count 6.5 X10^3/uL (2.0-7.7); Basophil# 0.04 X10^3/uL; Basophil% 0.4 % (0-1); Eosinophil# 0.07 X10^3/uL; Eosinophils% 0.7 % (0-5); Hematocrit 43.8 % (40-54); Hemoglobin 14.6 g/dL (13.0-16.5); Lymphocyte # 2.28 X10^3/ul (0.83-4.51); Lymphocyte % 23.8 % (19-41); Mean Corp Hgb Conc 33.3 g/dL (32-36); Mean Corpuscular Hgb 30.9 pg (27.0-32.0); Mean Corpuscular Volume 92.8 fL (80-94); Mean Platelet Vol. 11.3 fl (6.2-12.0); Monocyte# 0.64 X10^3/uL; Monocyte% 6.7 % (0-10); NRBC Flagged by Analyzer 0 % (0-5); Neutrophil # 6.48 X10^3/uL (2.7-7.7); Neutrophil % 67.9 % (47-70); Platelet Count 192 K/mm3 (150-450); RBC Distribution Width CV 12.7 % (11.6-14.6); RBC Distribution Width SD 43.7 fl (35.1-43.9); Red Blood Count 4.72 M/mm3 (4.6-6.2); White Blood Count 9.6 K/mm3 (4.4-11.0)
[2021-07-15 10:57] LABS: International Normalized Ratio 1.1; Prothrombin Time (Protime)PT. 13.8 SECONDS (11.7-14.9)
[2021-07-15 10:58] LABS: Partial Thromboplast Time 34.3 Seconds (24.1-36.2)
[2021-07-15 11:16] LABS: BNP,B-Type NATRIURETIC PEPTIDE 144.1 pg/mL (0-100)
[2021-07-15 11:18] LABS: Anion Gap 5 (5-15); BUN 13 mg/dL (7-18); BUN/Creat Ratio 11.3 RATIO (10-20); Calcium,Total 8.8 mg/dL (8.5-10.1); Chloride 103 mmol/L (98-107); Creatinine, Serum 1.15 mg/dL (0.70-1.30); EST Glomerular Filtration Rate 71 mL/min (>60); Est Glom Filt Rate - Afr Amer 86 mL/min (>60); Glucose 125 mg/dL (74-106); Potassium 3.8 mmol/L (3.5-5.1); Sodium Level 139 mmol/L (136-145)
[2021-08-01 12:57] VITALS: BMI 46.7
--- NOTE | 2021-08-01 16:52 | PCM.HP.BLA ---
History and Physical Date of Admission: 08/05/21 [facility] [id number] [place], [place] [phone] OFFICE VISITDate of Service: 06/16/21 MR#:[id number]: TYRELL JORDANNavi Booker #:[id number]:1970 Provider: SATHISH Tracy/Sex: 50/M [facility] HPI HPI History of Present Illness Surgical H&P: Yes Details: This is a 50-year-old gentleman that presents here today for a cardiovascular follow-up. He was in the hospital May 07, 2021 for concerns over increasing shortness of breath. He was noted to be in atrial fibrillation with RVR. His BNP was elevated at 438. Echocardiogram demonstrated an ejection fraction of 65%. He also has a history of hypertension diabetes. He was discharged home on diltiazem, Eliquis, furosemide, digoxin. He previously was on carvedilol and losartan for blood pressure control. His amlodipine was discontinued. It was felt that we could pursue a cardioversion on an outpatient basis once he has been anticoagulated for at least 30 days. Since being home from the hospital he has felt okay. He has not had any chest discomfort. He has not had any worsening shortness of breath. He is not any palpitations that he is aware of. He does not have any lower extremity edema. He does not have any lightheadedness or dizziness. He does note an increase in fatigue. 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 Is patient in pain?: No Allergies gabapentin Adverse Reaction (Verified 06/16/21 09:54) Other tramadol Adverse Reaction (Verified 06/16/21 09:54) Other Medications Humalog U-100 Insulin 20 unit SUBCUT TID 05/07/21 [History Confirmed 06/16/21] Lantus Solostar U-100 Insulin 33 unit SUBCUT BID 05/07/21 [History Confirmed 06/16/21] carvedilol 25 mg PO BID 05/07/21 [History Confirmed 06/16/21] losartan 100 mg PO DAILY 05/07/21 [History Confirmed 06/16/21] omeprazole 20 mg PO BID 05/07/21 [History Confirmed 06/16/21] apixaban 5 mg tablet 5 mg PO BID 30 Days #60 tab 06/04/21 [Rx Confirmed 06/16/21] digoxin 125 mcg (0.125 mg) tablet 125 mcg PO DAILY 30 Days #30 tab 06/04/21 [Rx Confirmed 06/16/21] diltiazem HCl 120 mg capsule,extended release 24 hr 120 mg PO BID 30 Days #60 cap 06/04/21 [Rx Confirmed 06/16/21] furosemide 40 mg tablet 40 mg PO BID #60 tab 06/04/21 [Rx Confirmed 06/16/21] PFSH Medical History (Updated 06/16/21 @ 10:20 by Leny Craft PA, PA) COPD (chronic obstructive pulmonary disease) Diabetes High cholesterol Hypertension Longstanding persistent atrial fibrillation Pneumonia Surgical History (Updated 05/07/21 @ 10:05 by Jesus Colon) H/O rotator cuff surgery Family History (Updated 05/07/21 @ 13:[address] Rand Crowley MD) Father Cancer Mother Diabetes Social History (Updated 05/07/21 @ 13:[address] Rand Crowley MD) Smoking Status: Former smoker alcohol intake: current ROS Const Const: Negative for fatigue, weakness, headache(s), frequent falls, excessive sweating, weight gain or weight loss Eyes Eyes: Negative for blind spots, loss of peripheral vision, transient loss of vision, blurry vision, change in vision or double vision ENT ENT: Negative for headache(s), dizziness, tinnitus, Nosebleed/epistaxis or balance problems Cardio Chest Pain: No Palpitations: No Edema: None Muscle aches with walking: None Resp Respiratory: Negative for SOB with activity, SOB at rest, SOB orthopnea\SOB lying down or Cough GI GI: Negative nausea, vomiting, heartburn, bloating, vomiting blood/hematemesis, bright, red blood in stools or black,tarry stools : Negative for hematuria Musc Musc: Negative for muscle aches/ myalgia, muscle weakness, joint pain or balance problems Skin Skin: Negative rash or wounds Neuro Neuro: Negative for dizziness, lightheadedness, near syncope, syncope, orthostatic symptoms, frequent falls, headache(s), weakness, confusion, memory loss, restless legs, blurry vision or double vision Yogesh Hematologic/Lymphatic: Negative for easy bleeding or easy bruising Endo Endo: Negative for fatigue, cold intolerance, heat intolerance or excessive sweating Psych Psych: Negative for anxiety or depression Allergy Allergy/Immunology: Negative for rash Cardiology Exam Const Appearance: cooperative, healthy appearing, comfortable, no acute distress and well developed Nutritional Appearance: obese Orientation: alert, awake and oriented x3 Head Head: normal to inspection Ears: hearing grossly normal bilaterally Nose: external nose normal Face and Sinus: face symmetric Mouth: oral mucosae normal, lip normal and moist mucous membranes Eyes General: appearance normal, both eyes and all related structures Eyelids: eyelids normal Conjunctivae: conjunctivae normal Pupils: PERRL EOM: EOM intact bilaterally Neck Neck: normal visual inspection and trachea midline; Negative no JVD Carotids: Negative bruit Chest Chest inspection: normal inspection of the chest Auscultation: Bilateral: Clear to Auscultation Cardio Palpation: normal PMI Rate: regular rate Rhythm: regular rhythm and irregularly irregular Heart sounds: S1 normal and S2 normal; Negative rub, gallop or murmur GI GI: soft, no hepatosplenomegaly, bowel sounds present and obese Neuro General: patient alert, patient awake, patient oriented x3 and CN's II-XI intact bilaterally Extremities Pulses: Normal: Right Posterior Tibial Pulse, Left Posterior Tibial Pulse, Right Radial Pulse and Left Radial Pulse Lower Extremity Edema: None: Bilateral Psych Psychological: normal affect Assessment and Plan Assessment and Plan (1) Longstanding persistent atrial fibrillation: Status: Acute Orders: Orders: Cardioversion 06/16/21 Nuclear Stress Test - Chemical 06/16/21 Basic Metabolic Profile (BMP) 06/16/21 Plan - Leny BOWER, PA: As patient is a diabetic and he does have a history of hypertension would like to pursue a stress test to evaluate for underlying ischemia. If this is negative feel that we could pursue a cardioversion once he has been anticoagulated for 30 days. It is noted that his heart rate is better controlled on his current medications. 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 In the am take your morning medications expect your furosemide and insulin. (2) Benign essential hypertension: Status: Chronic Orders: Orders: Cardioversion 06/16/21 Nuclear Stress Test - Chemical 06/16/21 Basic Metabolic Profile (BMP) 06/16/21 Plan - Leny BOWER, PA: Blood pressure is well controlled on current medications, we do not recommend any changes at this time. Plan Details Other Orders: Orders: 12 Lead E[place] performed by [facility]/16/21 I48.91 Follow Up: 3 Months (mmm) 9 Months (pfm) 06/16/21 (cardioversion is scheduled for 07/08- will need ekg one week later) 06/16/21 (needs work excuse for test scheduled ) COVID (Procedure Consent) Procedure Criteria Procedure Criteria: Yes Elective The surgeon/proceduralist and patient have discussed in detail the risk of exposure to and/or potential harm posed by the COVID-19 virus with having a surgery/procedure at this time versus the risk of delaying the surgery/procedure. It is not possible to know either the risk of delaying the surgery or procedure or chance of getting an infection with perfect accuracy, but a joint decision was made between the patient and the surgeon/proceduralist to proceed at this time with the scheduled surgery/procedure as indicated on the consent form. Coding Level of Care Code Off vis,est,level 4 Diagnoses Longstanding persistent atrial fibrillation I48.11 Benign essential hypertension I10 Coding Level of Care Code Off vis,est,level 4 Diagnoses Longstanding persistent atrial fibrillation I48.11 Benign essential hypertension I10 Supplemental Info Supplemental Information Echocardiogram 04/2021: Based upon the 2D echocardiographic and contrast enhanced images obtained there appears to be grossly normal left ventricular size, wall motion, and systolic function. The estimated ejection fraction is 55 %. The left atrium is mildly enlarged. Trivial mitral valve insufficiency. Trivial tricuspid valve insufficiency. Mildly dilated aortic root. Trivial pericardial effusion. There are no echocardiographic indications of cardiac tamponade. Right ventricular systolic pressure estimated to be 28 mmHg. Unable to assess diastolic dysfunction. Labs: No Data to Display Diagnostics: Electrocardiogram Echocardiogram Chest X-Ray Pulmonary: No Data to Display 06/17/21 [id number]<Electronically signed by Leny BOWER>Date Leny BOWER Cosigner Signature:Date (if applicable) CC: Dr. Ryan Colbert MD ~ Addendum: The patient underwent further evaluation with exercise tolerance test/imaging study on 07-01-2021. The results are noted below. Stress Test Report Date: 07-01-2021 Procedure: Pharmacologic stress nuclear imaging study Indications: Atrial fibrillation; congestive heart failure Consent: Per the patient Procedure: The patient underwent pharmacologic (Regadenoson 0.4mg ) evaluation with a peak heart rate of 126 beats per minute (74%predicted maximal heart rate) and a peak blood pressure of 150/100 mmHg. The baseline ECG demonstrated atrial fibrillation; septal IA of indeterminate age cannot be excluded; nonspecific T wave abnormality. The peak pharmacologic ECG demonstrated no obvious ECG changes. There were no cardiac dysrhythmias pretest, during pharmacologic infusion, or recovery. There was no complaint of chest discomfort during pharmacologic infusion or recovery. The examination was discontinued secondary to completion of protocol. Impression: 1. Pharmacologic (Regadenoson) evaluation 2. Peak pharmacologic ECG with continued atrial fibrillation with septal IA of indeterminate age cannot be excluded and nonspecific T wave abnormality. 3. There were no cardiac dysrhythmias pretest, during pharmacologic infusion, or recovery. 4. Nuclear images pending Myocardial perfusion imaging study: Technique: The patient was injected with 14.9 millicuries of technetium 99m Cardiolite and subsequently rest SPECT Cardiolite nuclear imaging was obtained in the horizontal long, vertical long, and short axis views. The patient underwent pharmacologic (Regadenoson) evaluation with a peak heart rate of 126 beats per minute (74% percent predicted maximal heart rate) and a peak blood pressure of 150/100 mmHg. The patient was injected with 45.0 millicuries of technetium 99m Cardiolite and subsequently stress SPECT Cardiolite nuclear imaging was obtained in the horizontal long, vertical long, and short axis views. A gated Cardiolite study at peak stress was obtained. Interpretation: Rest and stress SPECT Cardiolite nuclear imaging status post realignment, normalization, and attenuation correction demonstrate the appearance of body motion during image acquisition and the appearance status post stress with area of diminished myocardial perfusion/tracer uptake in portions of the distal inferior/inferior apical segments. There is end systolic thickening and brightening. The gated Cardiolite study demonstrates myocardial thickening and inward wall motion. The reported LVEF is 49%. Impression: 1. Rest and stress SPECT Cardiolite nuclear imaging demonstrate the appearance of body motion during image acquisition and the appearance of post stress with an area of diminished myocardial perfusion/tracer uptake in portions of the distal inferior/inferoapical segments concerning for an area of stress-induced myocardial ischemia, however, an element of shifting soft tissue attenuation/body motion cannot necessarily be excluded.. 2. The gated Cardiolite study reports an LVEF of 49%. The above has been discussed and reviewed with the patient. A recommendation has been made to proceed with further definitive evaluation of his coronary anatomy with diagnostic cardiac catheterization. The procedure and risks were discussed with him. He was agreeable to this approach. Assessment & Plan Addt'l Comments I have re-examined the patient. There are no clinical changes since date of exam.
--- NOTE | 2021-08-05 12:31 | CL.D_ITS ---
Patient Name: JHONATAN JORDAN Study Date: 08/05/2021 Performing: Zeferino Pierce MD Ht: 70.07 inches 178 cm : 1970 Wt: 326.28 lbs 148 kg Age: 50 Gender: male BSA: 2.57 PROCEDURE(S) PERFORMED [id number]/COR/LV CLINICAL PROFILE AND INDICATIONS Indications: Suspected CAD, Other Heart Failure: None Stress/Imaging Date: 07/01/2021tress Test with SPECT MPI: Positive Angina Classification Anginal Classification w/in 2 Weeks: No symptoms CAD Presentations: Other: atrial fibrillation CONCLUSIONS Elevated Left Ventricular End Diastolic Pressure Normal LV size, wall motion,and systolic function LVEF: by LV gram 55 % Normal coronary arteries RECOMMENDATIONS Medical therapy DESCRIPTION OF PROCEDURE The patient arrived to the procedure lab. The risks and benefits of the procedure as well as a full d escription of our services here and current unavailability of surgical backup were fully explained to the patient and/or their significant other prior to the catheterization. The Timeout was completed, verifying the correct patient and procedure. The patient's procedural site was prepped and draped in the usual fashion. Local anesthetic was given subcutaneously to right radial region with Lidocaine 2% . Using a modified Seldinger technique, arterial access was obtained via the right radial artery, a 6 Fr sheath was inserted. Left Coronary Artery selective angiography was performed in multiple views u sing a 5 Fr. 4.0 [place] catheter. Right Coronary Artery selective angiography was then performed in mu ltiple views using a 5 Fr. JR 4 catheter. Left Ventriculography was performed in GRAJEDA projection using a 5 Fr. Pigtail catheter. LV to AO pullback pressures were then recorded.The arterial sheath was pulled and a TR Band was applied for hemostasis CORONARY ANGIOGRAPHY DOMINANCE: Right Dominant LEFT HEART ASSESSMENT Left Ventricular Ejection Fraction: by LV Gram 55 % Normal LV wall motion Elevated Left Ventricular End Diastolic Pressure LVEDP: 10 mmHg LEFT MAIN: Angiographically normal LEFT ANTERIOR DESCENDING ARTERY: Angiographically normal CIRCUMFLEX ARTERY: Angiographically normal RIGHT CORONARY ARTERY: Angiographically normal AORTIC ROOT: Angiographically normal COMPLICATIONS No Complications PROCEDURE MEDICATIONS Versed 1 mg IV Fentanyl 50 mcg IV Oxygen: 2 L/min via nasal cannula Baby Aspirin (81mg) 1 Tabs PO @ 08/05/2021 09:10:50 Heparin given IA 08/05/2021 10:25:31 Verapamil 2.5mg, Ntg 100mcgs, 3000 units of Heparin given IA 08/05/2021 10:25:31 SUMMARY OF HEMODYNAMIC DATA Time AIR REST ECG 09:05:32 Art 167/92 (111) 10:17:53 AO 113/88 (98) SA 10:36:01 LV 147/0, 14 10:49:07 LV 144/-7, 10 10:49:14 LV 142/-3, 10 10:50:21 LV 141/-7, 8 10:50:28 LVp 143/-9, 11 10:50:36 AOp 130/89 (106) 10:50:41 Signed By Zeferino Pierce MD On 08/05/2021 12:30:20 Zeferino Pierce MD
== END 2021-08-05 12:33 | disposition home or self-care (01) ==
LOC: CLSP 08:48
PROVIDERS: Physician Assistant Medical; PCP Family Medicine; Referring Provider Internal Medicine Cardiovascular Disease; Visit Provider Internal Medicine Cardiovascular Disease
DX: I25.10 Atherosclerotic heart disease of native coronary artery without angina pectoris (principal); I48.11 Longstanding persistent atrial fibrillation; I11.0 Hypertensive heart disease with heart failure; E11.22 Type 2 diabetes mellitus with diabetic chronic kidney disease; I50.9 Heart failure, unspecified; E66.9 Obesity, unspecified; Z68.42 Body mass index [BMI] 45.0-49.9, adult; Z79.4 Long term (current) use of insulin; Z87.891 Personal history of nicotine dependence; Z79.899 Other long term (current) drug therapy
CPT/HCPCS: 36415; 80048; 83880; 85025; 85610; 85730; 93458; 99152; 99153; J7040; Q9967; C1769; C1894

== ENCOUNTER → 2021-08-25 09:07 | Outpatient (CLI) | payer OTHER, SELFPAY ==
[2021-08-25 09:46] LABS: International Normalized Ratio 1.2; Prothrombin Time (Protime)PT. 14.3 SECONDS (11.7-14.9)
[2021-08-25 10:07] LABS: Anion Gap 8 (5-15); BUN 14 mg/dL (7-18); BUN/Creat Ratio 12.8 RATIO (10-20); Calcium,Total 9.1 mg/dL (8.5-10.1); Chloride 104 mmol/L (98-107); Creatinine, Serum 1.09 mg/dL (0.70-1.30); EST Glomerular Filtration Rate 76 mL/min (>60); Est Glom Filt Rate - Afr Amer 92 mL/min (>60); Glucose 165 mg/dL (74-106); Potassium 4.2 mmol/L (3.5-5.1); Sodium Level 142 mmol/L (136-145)
== END ==
PROVIDERS: Internal Medicine Cardiovascular Disease; PCP Family Medicine; Referring Provider Physician Assistant Medical; Visit Provider Physician Assistant Medical
DX: R06.00 Dyspnea, unspecified (principal); R94.39 Abnormal result of other cardiovascular function study; I48.11 Longstanding persistent atrial fibrillation
CPT/HCPCS: 36415; 80048; 85610

== ENCOUNTER 2021-09-02 10:11 | Day surgery (SDC) | payer OTHER, SELFPAY ==
[2021-09-01 08:47] VITALS: BMI 46.7
--- NOTE | 2021-09-01 14:09 | HP.PCM_ITS ---
History and Physical Date of Admission: 09/02/21 [facility] [address] [place] [address] [phone] OFFICE VISITDate of Service: 06/16/21 MR#:[id number]:[id number]: TYRELL JORDANN [facility]:[id number]:[id number] Provider: SATHISH Tracy/Sex: 50/M Lo cation:BMS.JAMEELGStatus:Signed HPI HPI History of Present Illness Surgical H&P: Yes Details: This is a 50-year-old gentleman that presents here today for a cardiovascular follow-up. He was in the hospital May 07, 2021 for concerns over increasing shortness of breath. He was noted to be in atrial fibrillation with RVR. His BNP was elevated at 438. Echocardiogram demonstrated an ejection fraction of 65%. He also has a history of hypertension diabetes. He was discharged home on diltiazem, Eliquis, furosemide, digoxin. He previously was on carvedilol and losartan for blood pressure control. His amlodipine was discontinued. It was felt that we could pursue a cardioversion on an outpatient basis once he has been anticoagulated for at least 30 days. Since being home from the hospital he has felt okay. He has not had any chest discomfort. He has not had any worsening shortness of breath. He is not any palpitations that he is aware of. He does not have any lower extremity edema. He does not have any lightheadedness or dizziness. He does note an increase in fatigue. 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 Is patient in pain?: No Allergies gabapentin Adverse Reaction (Verified 06/16/21 09:54) Other tramadol Adverse Reaction (Verified 06/16/21 09:54) Other Medications Humalog U-100 Insulin 20 unit SUBCUT TID 05/07/21 [History Confirmed 06/16/21] Lantus Solostar U-100 Insulin 33 unit SUBCUT BID 05/07/21 [History Confirmed 06/16/21] carvedilol 25 mg PO BID 05/07/21 [History Confirmed 06/16/21] losartan 100 mg PO DAILY 05/07/21 [History Confirmed 06/16/21] omeprazole 20 mg PO BID 05/07/21 [History Confirmed 06/16/21] apixaban 5 mg tablet 5 mg PO BID 30 Days #60 tab 06/04/21 [Rx Confirmed 06/16/21] digoxin 125 mcg (0.125 mg) tablet 125 mcg PO DAILY 30 Days #30 tab 06/04/21 [Rx Confirmed 06/16/21] diltiazem HCl 120 mg capsule,extended release 24 hr 120 mg PO BID 30 Days #60 cap 06/04/21 [Rx Confirmed 06/16/21] furosemide 40 mg tablet 40 mg PO BID #60 tab 06/04/21 [Rx Confirmed 06/16/21] PFSH Medical History (Updated 06/16/21 @ 10:20 by Leny Craft PA, PA) COPD (chronic obstructive pulmonary disease) Diabetes High cholesterol Hypertension Longstanding persistent atrial fibrillation Pneumonia Surgical History (Updated 05/07/21 @ 10:05 by Jesus Colon) H/O rotator cuff surgery Family History (Updated 05/07/21 @ 13:[address] Rand Crowley MD) Father Cancer Mother Diabetes Social History (Updated 05/07/21 @ 13:[address] Rand Crowley MD) Smoking Status: Former smoker alcohol intake: current ROS Const Const: Negative for fatigue, weakness, headache(s), frequent falls, excessive sweating, weight gain or weight loss Eyes Eyes: Negative for blind spots, loss of peripheral vision, transient loss of vision, blurry vision, change in vision or double vision ENT ENT: Negative for headache(s), dizziness, tinnitus, Nosebleed/epistaxis or balance problems Cardio Chest Pain: No Palpitations: No Edema: None Muscle aches with walking: None Resp Respiratory: Negative for SOB with activity, SOB at rest, SOB orthopnea\SOB lying down or Cough GI GI: Negative nausea, vomiting, heartburn, bloating, vomiting blood/hematemesis, bright, red blood in stools or black,tarry stools : Negative for hematuria Musc Musc: Negative for muscle aches/ myalgia, muscle weakness, joint pain or balance problems Skin Skin: Negative rash or wounds Neuro Neuro: Negative for dizziness, lightheadedness, near syncope, syncope, orthostatic symptoms, frequent falls, headache(s), weakness, confusion, memory loss, restless legs, blurry vision or double vision Yogesh Hematologic/Lymphatic: Negative for easy bleeding or easy bruising Endo Endo: Negative for fatigue, cold intolerance, heat intolerance or excessive sweating Psych Psych: Negative for anxiety or depression Allergy Allergy/Immunology: Negative for rash Cardiology Exam Const Appearance: cooperative, healthy appearing, comfortable, no acute distress and well developed Nutritional Appearance: obese Orientation: alert, awake and oriented x3 Head Head: normal to inspection Ears: hearing grossly normal bilaterally Nose: external nose normal Face and Sinus: face symmetric Mouth: oral mucosae normal, lip normal and moist mucous membranes Eyes General: appearance normal, both eyes and all related structures Eyelids: eyelids normal Conjunctivae: conjunctivae normal Pupils: PERRL EOM: EOM intact bilaterally Neck Neck: normal visual inspection and trachea midline; Negative no JVD Carotids: Negative bruit Chest Chest inspection: normal inspection of the chest Auscultation: Bilateral: Clear to Auscultation Cardio Palpation: normal PMI Rate: regular rate Rhythm: regular rhythm and irregularly irregular Heart sounds: S1 normal and S2 normal; Negative rub, gallop or murmur GI GI: soft, no hepatosplenomegaly, bowel sounds present and obese Neuro General: patient alert, patient awake, patient oriented x3 and CN's II-XI intact bilaterally Extremities Pulses: Normal: Right Posterior Tibial Pulse, Left Posterior Tibial Pulse, Right Radial Pulse and Left Radial Pulse Lower Extremity Edema: None: Bilateral Psych Psychological: normal affect Assessment and Plan Assessment and Plan (1) Longstanding persistent atrial fibrillation: Status: Acute Orders: Orders: Cardioversion 06/16/21 Nuclear Stress Test - Chemical 06/16/21 Basic Metabolic Profile (BMP) 06/16/21 Plan - Leny BOWER PA: As patient is a diabetic and he does have a history of hypertension would like to pursue a stress test to evaluate for underlying ischemia. If this is negative feel that we could pursue a cardioversion once he has been anticoagulated for 30 days. It is noted that his heart rate is better controlled on his current medications. 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 In the am take your morning medications expect your furosemide and insulin. (2) Benign essential hypertension: Status: Chronic Orders: Orders: Cardioversion 06/16/21 Nuclear Stress Test - Chemical 06/16/21 Basic Metabolic Profile (BMP) 06/16/21 Plan - Leny BOWER, PA: Blood pressure is well controlled on current medications, we do not recommend any changes at this time. Plan Details Other Orders: Orders: 12 Lead [place] [facility] [place]16[place] I48.91 Follow Up: 3 Months (mmm) 9 Months (pfm) 06/16/21 (cardioversion is scheduled for 07/08- will need ekg one week later) 06/16/21 (needs work excuse for test scheduled ) COVID (Procedure Consent) Procedure Criteria Procedure Criteria: Yes Elective The surgeon/proceduralist and patient have discussed in detail the risk of exposure to and/or potential harm posed by the COVID-19 virus with having a surgery/procedure at this time versus the risk of delaying the surgery/procedure. It is not possible to know either the risk of delaying the surgery or procedure or chance of getting an infection with perfect accuracy, but a joint decision was made between the patient and the surgeon/proceduralist to proceed at this time with the scheduled surgery/procedure as indicated on the consent form. Coding Level of Care Code Off vis,est,level 4 Diagnoses Longstanding persistent atrial fibrillation I48.11 Benign essential hypertension I10 Coding Level of Care Code Off vis,est,level 4 Diagnoses Longstanding persistent atrial fibrillation I48.11 Benign essential hypertension I10 Supplemental Info Supplemental Information Echocardiogram 04/2021: Based upon the 2D echocardiographic and contrast enhanced images obtained there appears to be grossly normal left ventricular size, wall motion, and systolic function. The estimated ejection fraction is 55 %. The left atrium is mildly enlarged. Trivial mitral valve insufficiency. Trivial tricuspid valve insufficiency. Mildly dilated aortic root. Trivial pericardial effusion. There are no echocardiographic indications of cardiac tamponade. Right ventricular systolic pressure estimated to be 28 mmHg. Unable to assess diastolic dysfunction. Labs: No Data to Display Diagnostics: Electrocardiogram Echocardiogram Chest X-Ray Pulmonary: No Data to Display 06/17/21 [id number]<Electronically signed by Leny BOWER>Date Leny BOWER Cosigner Signature:Date (if applicable) CC: Dr. Ryan Colbert MD ~ Assessment & Plan Addt'l Comments Addendum: I have examined the patient the following changes are noted: The patient subsequently underwent further evaluation which included an exercise tolerance test/imaging study and subsequently a diagnostic cardiac catheterization. These were performed on 07-01-2021 and 08-05-2021 respectively. The results are as noted below. Stress Test Report Date: 07-01-2021 Procedure: Pharmacologic stress nuclear imaging study Indications: Atrial fibrillation; congestive heart failure Consent: Per the patient Procedure: The patient underwent pharmacologic (Regadenoson 0.4mg ) evaluation with a peak heart rate of 126 beats per minute (74%predicted maximal heart rate) and a peak blood pressure of 150/100 mmHg. The baseline ECG demonstrated atrial fibrillation; septal DC of indeterminate age cannot be excluded; nonspecific T wave abnormality. The peak pharmacologic ECG demonstrated no obvious ECG changes. There were no cardiac dysrhythmias pretest, during pharmacologic infusion, or recovery. There was no complaint of chest discomfort during pharmacologic infusion or recovery. The examination was discontinued secondary to completion of protocol. Impression: 1. Pharmacologic (Regadenoson) evaluation 2. Peak pharmacologic ECG with continued atrial fibrillation with septal DC of indeterminate age cannot be excluded and nonspecific T wave abnormality. 3. There were no cardiac dysrhythmias pretest, during pharmacologic infusion, or recovery. 4. Nuclear images pending Myocardial perfusion imaging study: Technique: The patient was injected with 14.9 millicuries of technetium 99m Cardiolite and subsequently rest SPECT Cardiolite nuclear imaging was obtained in the horizontal long, vertical long, and short axis views. The patient underwent pharmacologic (Regadenoson) evaluation with a peak heart rate of 126 beats per minute (74% percent predicted maximal heart rate) and a peak blood pressure of 150/100 mmHg. The patient was injected with 45.0 millicuries of technetium 99m Cardiolite and subsequently stress SPECT Cardiolite nuclear imaging was obtained in the horizontal long, vertical long, and short axis views. A gated Cardiolite study at peak stress was obtained. Interpretation: Rest and stress SPECT Cardiolite nuclear imaging status post realignment, normalization, and attenuation correction demonstrate the appearance of body motion during image acquisition and the appearance status post stress with area of diminished myocardial perfusion/tracer uptake in portions of the distal inferior/inferior apical segments. There is end systolic thickening and brightening. The gated Cardiolite study demonstrates myocardial thickening and inward wall motion. The reported LVEF is 49%. Impression: 1. Rest and stress SPECT Cardiolite nuclear imaging demonstrate the appearance of body motion during image acquisition and the appearance of post stress with an area of diminished myocardial perfusion/tracer uptake in portions of the distal inferior/inferoapical segments concerning for an area of stress-induced myocardial ischemia, however, an element of shifting soft tissue attenuation/body motion cannot necessarily be excluded.. 2. The gated Cardiolite study reports an LVEF of 49%. CONCLUSIONS Elevated Left Ventricular End Diastolic Pressure Normal LV size, wall motion,and systolic function LVEF: by LV gram 55 % Normal coronary arteries RECOMMENDATIONS Medical therapy DESCRIPTION OF PROCEDURE The patient arrived to the procedure lab. The risks and benefits of the procedure as well as a full description of our services here and current unavailability of surgical backup were fully explained to the patient and/or their significant other prior to the catheterization. The Timeout was completed, verifying the correct patient and procedure. The patient's procedural site was prepped and draped in the usual fashion. Local anesthetic was given subcutaneously to right radial region with Lidocaine 2%. Using a modified Seldinger technique, arterial access was obtained via the right radial artery, a 6Fr sheath was inserted. Left Coronary Artery selective angiography was performed in multiple views using a 5 Fr. 4.0 Bellerose catheter. Right Coronary Artery selective angiography was then performed in multiple views using a 5 Fr. JR 4 catheter. Left Ventriculography was performed in GRAJEDA projection using a 5 Fr. Pigtail catheter. LV to AO pullback pressures were then recorded.The arterial sheath was pulled and a TR Band was applied for hemostasis CORONARY ANGIOGRAPHY DOMINANCE: Right Dominant LEFT HEART ASSESSMENT Left Ventricular Ejection Fraction: by LV Gram 55 % Normal LV wall motion Elevated Left Ventricular End Diastolic Pressure LVEDP: 10 mmHg LEFT MAIN: Angiographically normal LEFT ANTERIOR DESCENDING ARTERY: Angiographically normal CIRCUMFLEX ARTERY: Angiographically normal RIGHT CORONARY ARTERY: Angiographically normal AORTIC ROOT: Angiographically normal The patient was subsequently recommended for continued medical management, reinitiation of anticoagulation therapy, and once adequately anticoagulated to continue plans with future evaluation with synchronized biphasic DC cardioversion. The patient presents for outpatient synchronized biphasic DC cardioversion. The procedure and risks were discussed with him. He was agreeable to this approach.
--- NOTE | 2021-09-02 12:37 | PCM.OP.PRO ---
Procedure Report Date of Procedure: 09/02/21 CONSCIOUS SEDATION REPORT DATE OF SERVICE: September 02, 2021 BRIEF HISTORY OF PRESENT ILLNESS: The patient is a 50-year-old male who presented to [facility] for an elective outpatient cardioversion due to underlying atrial fibrillation. The patient's last surface echocardiogram revealed an ejection fraction of approximately 65%. The patient is currently anticoagulated on Eliquis. He does confirm a known history of COPD. Although he is suspected of having underlying obstructive sleep apnea, the patient has never been formally tested. He denies any prior anesthetic complications. PHYSICAL EXAMINATION: VITAL SIGNS: Reviewed and were acceptable. GENERAL: The patient is an obese male, in no apparent distress, speaking in full sentences. HEENT: Normocephalic, atraumatic. Mucous membranes are moist and pink. Good mouth opening noted. Trachea is midline. Good neck mobility. CHEST: S1, S2 irregularly irregular. No murmurs, rubs or gallops were noted. LUNGS: Clear to auscultation bilaterally without appreciable wheezes, rales or rhonchi. ABDOMEN: Soft, nontender, nondistended. Positive bowel sounds. EXTREMITIES: There is no clubbing, cyanosis or edema. ASA Class: II DESCRIPTION OF PROCEDURE: After confirmation of informed consent, the patient's anesthesia plan was reviewed in detail. Propofol was chosen. Risks and benefits were reviewed and the patient agreed to proceed. At 1155, the patient was given his first bolus of propofol. In total, the patient required 160 mg of propofol to achieve an appropriate level of sedation, after which, the patient required 2 separate attempts at cardioversion, the first of 200 J and the second at 300 J. The second attempt was successful in achieving normal sinus rhythm. The patient was monitored until 1208, at which time he reached his baseline mental status and function. The patient tolerated the procedure well. COMPLICATIONS: None ESTIMATED BLOOD LOSS: None RECOMMENDATIONS: Okay to recover in usual fashion. Procedures Pulmonary CF Procedures Pulmonary: [id number] Con Sedation
--- NOTE | 2021-09-02 12:41 | CARDIOVERS_ITS ---
Cardioversion Cardioversion: Date: 09-02-2021 Procedure: Synchronized Biphasic DC Cardioversion Indications: Atrial fibrillation Consent: Per the Patient Anesthesia: per Dr. Weinstein of pulmonology and critical care medicine with propofol 160 mg IV push total Procedure: Synchronized Biphasic DC Cardioversion: 200 J x 1: Result: Atrial fibrillation Synchronized biphasic DC cardioversion: 300 J x 1: Result: Sinus rhythm Complications: no apparent complications This note was generated with [employer] software. It may contain incorrect words, spelling, and punctuation that were not noted in checking the note before signing.
== END 2021-09-02 13:00 | disposition home or self-care (01) ==
LOC: CLSP 10:13
PROVIDERS: PCP Family Medicine; Referring Provider Internal Medicine Cardiovascular Disease; Visit Provider Internal Medicine Cardiovascular Disease
DX: I48.11 Longstanding persistent atrial fibrillation (principal); E11.9 Type 2 diabetes mellitus without complications; I11.0 Hypertensive heart disease with heart failure; I50.9 Heart failure, unspecified; E66.9 Obesity, unspecified; J44.9 Chronic obstructive pulmonary disease, unspecified; Z87.891 Personal history of nicotine dependence; Z79.4 Long term (current) use of insulin; Z79.01 Long term (current) use of anticoagulants; Z79.82 Long term (current) use of aspirin; Z68.42 Body mass index [BMI] 45.0-49.9, adult
CPT/HCPCS: 92960; 93005; J7040

== ENCOUNTER 2021-10-08 10:00 | Inpatient (IN) | payer OTHER, SELFPAY ==
[2021-10-08] VITALS (8 sets, daily range): BP systolic 125–142; BP diastolic 86–103; PULSE 75–116; RESP 18; TEMP 36.7–37.2; O2SAT 95–96; BMI 46.1
--- NOTE | 2021-10-08 08:14 | PCS.PANDOC ---
PANDEMIC DOCUMENTATION INITIATED: Date: 10/08/2021 Time: 814
--- NOTE | 2021-10-08 08:58 | HP.PCM.CAR_ITS ---
Documented by User: Leny BOWER, SATHISH 10/08/21 09:17 HPI - General General Date of Admission: 10/08/21 HPI Narrative JHONATAN JULIAN, is a 50 M who presents to the hospital today for start flecainide with plans of having a cardioversion done after he has had 4 doses. He was in the hospital May 07, 2021 for concerns over increasing shortness of breath. He was noted to be in atrial fibrillation with RVR. His BNP was elevated at 438. Echocardiogram demonstrated an ejection fraction of 65%. He was discharged home on diltiazem, Eliquis, furosemide, digoxin. He previously was on carvedilol and losartan for blood pressure control. His amlodipine was discontinued. It was felt that we could pursue a cardioversion on an outpatient basis once he has been anticoagulated for at least 30 days. This was delayed d/t to abnormal stress test. He underwent a heart cath which demonstrated normal coronary arteries. He then had a DCCV on 09/01/2021. Unfortunately he did not maintain SR. He also has a history of hypertension diabetes. He is symptomatic with his Afib with fatigue, feels that he is unable to work because of the fatigue. He notes that he is more SOB with activity. [facility] Medical History (Updated 10/08/21 @ 13:[address] Joyce Fernandez DO) Abnormal stress test Alcohol abuse Asthma Atrial fibrillation Benign essential hypertension COPD (chronic obstructive pulmonary disease) Former smoker GERD (gastroesophageal reflux disease) High cholesterol History of cardioversion (~09/02/21) Hypertension Irregular heart beat Longstanding persistent atrial fibrillation Morbid obesity CONRAD (obstructive sleep apnea) Pneumonia Home Medications Humalog U-100 Insulin 20 unit SUBCUT TID 05/07/21 [History Last Taken 10/07/21 15:00] Lantus Solostar U-100 Insulin 33 unit SUBCUT BID 05/07/21 [History Last Taken 10/08/21 06:00] carvedilol 25 mg PO BID 05/07/21 [History Last Taken 10/08/21 06:00] losartan 100 mg PO DAILY 05/07/21 [History Last Taken 10/08/21 06:00] omeprazole 20 mg PO BID 05/07/21 [History Last Taken 10/08/21 06:00] digoxin 125 mcg (0.125 mg) tablet 125 mcg PO DAILY 30 Days #30 tab 06/04/21 [Rx Last Taken 10/08/21 06:00] diltiazem HCl 120 mg capsule,extended release 24 hr 120 mg PO BID 30 Days #60 cap 06/04/21 [Rx Last Taken 10/08/21 06:00] furosemide 40 mg tablet 40 mg PO BID #60 tab 06/04/21 [Rx Last Taken 10/08/21 06:00] turmeric root extract 500 mg capsule 1,500 mg PO DAILY cap 10/03/21 [History Last Taken 10/08/21 06:00] apixaban [Eliquis] 5 mg PO BID 10/08/21 [History Last Taken 10/08/21 06:00] Allergy/AdvReac Type Severity Reaction Status Date / Time gabapentin AdvReac Other Verified 10/03/21 10:55 tramadol AdvReac Other Verified 10/03/21 10:55 Family History Father Cancer Mother Diabetes Surgical History H/O rotator cuff surgery Social History Smoking Status: Former smoker alcohol intake: current ROS Constitutional Constitutional: Reports as per HPI and fatigue Eyes Eyes: Reports systems reviewed and no addt'l complaints, except as documented ENT HEENT: Reports systems reviewed and no addt'l complaints, except as documented Cardiovascular Cardiovascular: Reports dyspnea on exertion, easily tiring during activity, fatigue, irregular heart rhythm and palpitations; Denies abdominal bloating, abdominal pain, bluish discoloration of hand/feet, chest pain, chest pain with activity, claudication, clubbing, cyanosis, dizziness, leg edema, lightheadedness, nausea or pedal edema Respiratory/Chest Respiratory/Chest: Reports systems reviewed and no addt'l complaints, except as documented Gastrointestinal Gastrointestinal: Reports systems reviewed and no addt'l complaints, except as documented Musculoskeletal Musculoskeletal: Reports systems reviewed and no addt'l complaints, except as documented Neurologic Neurologic: Reports systems reviewed and no addt'l complaints, except as documented Vital Signs Vital Signs Vital Signs: 10/08/21 08:50 Temperature 98.1 F Temperature Source Oral Pulse Rate 87 Respiratory Rate 18 Blood Pressure 125/90 H Blood Pressure Mean 101 Blood Pressure Source Monitor Blood Pressure Position Semi-Fowlers Blood Pressure Location Right Arm Pulse Ox 96 Oxygen Delivery Method Room Air Weight Weight: 321 lb 10.471 oz Body Mass Index (BMI) 46.1 Physical Exam Const alert, oriented x3, no apparent distress, average body habitus, healthy appearing and well nourished HEENT normocephalic, head/scalp atraumatic, hearing grossly normal bilaterally, nasal mucous membranes and turbinates normal, moist oral mucous membranes and oropharynx normal Nose: external nose normal Tympanic Membrane: TM's normal bilaterally Eyes PERRL, EOMs intact bilaterally, conjunctivae normal, no scleral icterus, no papilledema and normal visual tovar by confrontation Neck full ROM Chest inspection of chest normal and palpation of chest normal Resp normal respiratory effort and clear to auscultation bilaterally Cardio Jugular Venous Distention: Negative for JVD Rate: regular rate Rhythm: abnormal rhythm irregularly irregular Heart Sounds: S1 normal and S2 normal; Negative for click, gallop, murmur or rub GI normal to inspection, nondistended, normoactive bowel sounds, soft to palpation, non-tender and non-distended Extremity normal to inspection, full ROM, normal capillary refill and no clubbing, cyanosis or edema Skin no rashes or lesions noted Neuro oriented x3, CN's II-XII intact bilaterally, moves all extremities, no focal motor deficits and no sensory deficits noted Psych mental status grossly normal Cardiology Labs/Tests Cardiology Labs/Tests: EKG: ECHO: 04/2021: Based upon the 2D echocardiographic and contrast enhanced images obtained there appears to be grossly normal left ventricular size, wall motion, and systolic function. The estimated ejection fraction is 55 %. The left atrium is mildly enlarged. Trivial mitral valve insufficiency. Trivial tricuspid valve insufficiency. Mildly dilated aortic root. Trivial pericardial effusion. There are no echocardiographic indications of cardiac tamponade. Right ventricular systolic pressure estimated to be 28 mmHg. Unable to assess diastolic dysfunction. Stress Test: Date: 07-01-2021 Procedure: Pharmacologic stress nuclear imaging study Indications: Atrial fibrillation; congestive heart failure Consent: Per the patient Procedure: The patient underwent pharmacologic (Regadenoson 0.4mg ) evaluation with a peak heart rate of 126 beats per minute (74%predicted maximal heart rate) and a peak blood pressure of 150/100 mmHg. The baseline ECG demonstrated atrial fibrillation; septal DE of indeterminate age cannot be excluded; nonspecific T wave abnormality. The peak pharmacologic ECG demonstrated no obvious ECG changes. There were no cardiac dysrhythmias pretest, during pharmacologic infusion, or recovery. There was no complaint of chest discomfort during pharmacologic infusion or recovery. The examination was discontinued secondary to completion of protocol. Impression: 1. Pharmacologic (Regadenoson) evaluation 2. Peak pharmacologic ECG with continued atrial fibrillation with septal DE of indeterminate age cannot be excluded and nonspecific T wave abnormality. 3. There were no cardiac dysrhythmias pretest, during pharmacologic infusion, or recovery. 4. Nuclear images pending Myocardial perfusion imaging study: Technique: The patient was injected with 14.9 millicuries of technetium 99m Cardiolite and subsequently rest SPECT Cardiolite nuclear imaging was obtained in the horizontal long, vertical long, and short axis views. The patient underwent pharmacologic (Regadenoson) evaluation with a peak heart rate of 126 beats per minute (74% percent predicted maximal heart rate) and a peak blood pressure of 150/100 mmHg. The patient was injected with 45.0 millicuries of technetium 99m Cardiolite and subsequently stress SPECT Cardiolite nuclear imaging was obtained in the horizontal long, vertical long, and short axis views. A gated Cardiolite study at peak stress was obtained. Interpretation: Rest and stress SPECT Cardiolite nuclear imaging status post realignment, normalization, and attenuation correction demonstrate the appearance of body motion during image acquisition and the appearance status post stress with area of diminished myocardial perfusion/tracer uptake in portions of the distal inferior/inferior apical segments. There is end systolic thickening and brightening. The gated Cardiolite study demonstrates myocardial thickening and inward wall motion. The reported LVEF is 49%. Impression: 1. Rest and stress SPECT Cardiolite nuclear imaging demonstrate the appearance of body motion during image acquisition and the appearance of post stress with an area of diminished myocardial perfusion/tracer uptake in portions of the distal inferior/inferoapical segments concerning for an area of stress-induced myocardial ischemia, however, an element of shifting soft tissue attenuation/body motion cannot necessarily be excluded.. 2. The gated Cardiolite study reports an LVEF of 49%. Cardiac Cath: 07/2021: DOMINANCE: Right Dominant LEFT HEART ASSESSMENT Left Ventricular Ejection Fraction: by LV Gram 55 % Normal LV wall motion Elevated Left Ventricular End Diastolic Pressure LVEDP: 10 mmHg LEFT MAIN: Angiographically normal LEFT ANTERIOR DESCENDING ARTERY: Angiographically normal CIRCUMFLEX ARTERY: Angiographically normal RIGHT CORONARY ARTERY: Angiographically normal AORTIC ROOT: Angiographically normal Assessment & Plan Assessment/Plan (1) Longstanding persistent atrial fibrillation: PLAN: Pt is symptomatic with his Afib, will admit for Flecainide initiation. Plan is after he has had 4 doses of medication to then proceed with DCCV. He has already been referred to EP and has been referred for a sleep study. He will continue with is carvedilol, diltiazem and digoxin. He is anticoagulated with eliquis (2) Benign essential hypertension: PLAN: Will monitor, will continue with his Carvedilol, Diltiazem and losartan. (3) Diabetes: PLAN: Will consult hospitalist to assist with management of this. Documented by User: Dr. Zeferino Pierce MD 10/08/21 20:08 [facility] - General General Date of Admission: 10/08/21 [facility] Medical History (Updated 10/08/21 @ 13:[address] Joyce Fernandez DO) Abnormal stress test Alcohol abuse Asthma Atrial fibrillation Benign essential hypertension COPD (chronic obstructive pulmonary disease) Former smoker GERD (gastroesophageal reflux disease) High cholesterol History of cardioversion (~09/02/21) Hypertension Irregular heart beat Longstanding persistent atrial fibrillation Morbid obesity CONRAD (obstructive sleep apnea) Pneumonia Home Medications Humalog U-100 Insulin 20 unit SUBCUT TID 05/07/21 [History Last Taken 10/07/21 15:00] Lantus Solostar U-100 Insulin 33 unit SUBCUT BID 05/07/21 [History Last Taken 10/08/21 06:00] carvedilol 25 mg PO BID 05/07/21 [History Last Taken 10/08/21 06:00] losartan 100 mg PO DAILY 05/07/21 [History Last Taken 10/08/21 06:00] omeprazole 20 mg PO BID 05/07/21 [History Last Taken 10/08/21 06:00] digoxin 125 mcg (0.125 mg) tablet 125 mcg PO DAILY 30 Days #30 tab 06/04/21 [Rx Last Taken 10/08/21 06:00] diltiazem HCl 120 mg capsule,extended release 24 hr 120 mg PO BID 30 Days #60 cap 06/04/21 [Rx Last Taken 10/08/21 06:00] furosemide 40 mg tablet 40 mg PO BID #60 tab 06/04/21 [Rx Last Taken 10/08/21 06:00] turmeric root extract 500 mg capsule 1,500 mg PO DAILY cap 10/03/21 [History Last Taken 10/08/21 06:00] apixaban [Eliquis] 5 mg PO BID 10/08/21 [History Last Taken 10/08/21 06:00] Allergy/AdvReac Type Severity Reaction Status Date / Time gabapentin AdvReac Other Verified 10/03/21 10:55 tramadol AdvReac Other Verified 10/03/21 10:55 Family History Father Cancer Mother Diabetes Surgical History H/O rotator cuff surgery Social History Smoking Status: Former smoker alcohol intake: current Assessment & Plan Addt'l Comments Addendum: The patient was individually evaluated and examined this day. The patient presents for a history of atrial fibrillation with antiarrhythmic therapy initiation for continued cardiac rhythm monitoring. At the present time the patient appears to be resting comfortably with no acute complaints. On examination he has the appearance of an underlying irregularly irregular rhythm with a normal S1 and S2. His pulmonary examination demonstrates his lungs to be clear to auscultation and percussion bilaterally. His abdomen demonstrates positive bowel sounds and is soft and nontender. His baseline laboratory studies were reviewed. His baseline ECG is demonstrated atrial fibrillation. The impression at this time is the patient's concern of underlying atrial fibrillation which despite rate control therapy and synchronized biphasic DC cardioversion has returned. Thus he is currently in the hospital for antiarrhythmic initiation and cardiac rhythm monitoring. He has been started on medical management with flecainide/Tambocor. He will receive a minimum of 4 doses barring unforeseen events. He will continue his rate control therapy and anticoagulant therapy in the interim as deemed appropriate. After his antiarrhythmic initiation if he has not regained sinus rhythm then consideration will be given to repeat synchronized biphasic DC cardioversion. In the interim his case is already been referred to [facility] electrophysiology for future consideration of his atrial fibrillation and the need for possible EPS/RFA. The patient's case has been discussed and reviewed with SATHISH Gutierrez. This note was generated using a voice recognition system and there may be incorrect words, spelling or punctuation that were not noted when reviewing the office note prior to saving. Procedure Criteria Type of Procedure Procedure Type: Elective Elective Risks - COVID COVID Risk Discussion: The surgeon/proceduralist and patient have discussed in detail the risk of exposure to and/or potential harm posed by the COVID-19 virus with having a surgery/procedure at this time versus the risk of delaying the surgery/procedure. It is not possible to know either the risk of delaying the surgery or procedure or chance of getting an infection with perfect accuracy, but a joint decision was made between the patient and the surgeon/proceduralist to proceed at this time with the scheduled surgery/procedure as indicated on the consent form.
[2021-10-08 11:01] LABS: Absolute Lymphocyte Count 2.41 X10^3/uL (0.83-4.51); Absolute Neutrophil Count 5.9 X10^3/uL (2.0-7.7); Basophil# 0.04 X10^3/uL; Basophil% 0.4 % (0-1); Eosinophil# 0.09 X10^3/uL; Hematocrit 43.8 % (40-54); Hemoglobin 14.7 g/dL (13.0-16.5); Lymphocyte # 2.41 X10^3/ul (0.83-4.51); Lymphocyte % 26.5 % (19-41); Mean Corp Hgb Conc 33.6 g/dL (32-36); Mean Corpuscular Hgb 31.3 pg (27.0-32.0); Mean Corpuscular Volume 93.2 fL (80-94); Mean Platelet Vol. 11.3 fl (6.2-12.0); Monocyte# 0.67 X10^3/uL; Monocyte% 7.4 % (0-10); NRBC Flagged by Analyzer 0 % (0-5); Neutrophil # 5.85 X10^3/uL (2.7-7.7); Neutrophil % 64.4 % (47-70); Platelet Count 217 K/mm3 (150-450); RBC Distribution Width CV 12.3 % (11.6-14.6); RBC Distribution Width SD 42.5 fl (35.1-43.9); White Blood Count 9.1 K/mm3 (4.4-11.0)
[2021-10-08] MEDS: Flecainide 100 MG Tablet PO ×2 (11:06→21:24)
[2021-10-08 11:17] LABS: Anion Gap 5 (5-15); BUN 11 mg/dL (7-18); BUN/Creat Ratio 10.8 RATIO (10-20); Calcium,Total 8.9 mg/dL (8.5-10.1); Chloride 106 mmol/L (98-107); Creatinine, Serum 1.02 mg/dL (0.70-1.30); EST Glomerular Filtration Rate 82 mL/min (>60); Est Glom Filt Rate - Afr Amer 99 mL/min (>60); Estimated Creatinine Clearance 88.47 ml/min; Glucose 154 mg/dL (74-106); Potassium 4.1 mmol/L (3.5-5.1); Sodium Level 140 mmol/L (136-145)
[2021-10-08] MEDS: Insulin Lispro 100 UNIT/ML INSULN.PEN 20 UNIT SC ×2 (12:22→17:50)
[2021-10-08 12:30] LABS: Bedside Glucose 174 mg/dL (70-110)
--- NOTE | 2021-10-08 13:20 | CASEMGMT ---
AURELIA DAIGLE assessment: Face to Face with patient for initial transition planning/care coordination assessment. AURELIA DAIGLE introduced self and role at [facility], pt voices understanding and consents to assessment. Pt is sitting up in bed in no distress on room air. Pt is A/Ox4 and answers all questions appropriately. Care providers, pharmacy, and demographics verified. Presentation: Pt came as direct admit for antiarrythmic initiation Admitting dx: Afib, initiation of flecainide PCP: [facility] Specialists: Stan, cardio Preferred Pharmacy: [facility] Insurance: MMO Prescription Benefit: MMO Living Will/HPOA: Pt does not have LW/HPOA and declines AD info. LNOK: Muriel Hurtado, mother Living Arrangements: Pt lives alone in 1 story home with 4 steps in and states no concerns at home. Pt is independent with ADL's. Transportation: Pt states drives self and states no transportation concerns. DME/HHC: Pt states has nebulizer at home and states no need for any further DME. Pt states no hx HHC or SNF but has had OP therapy in past. Pt states no concerns with going home at time of discharge. 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 Pt states no hx of smoking cigarettes but does drink a couple beers/week. Pt voices no further concerns/needs. CM to follow for any further discharge planning/needs. Advised pt to ask for CM if any further questions/concerns/needs arise, voices understanding. Pt Goal: Home Plan: [place] AURELIA ADIGLE
--- NOTE | 2021-10-08 13:38 | PCM.PN.HOSP ---
Subjective Subjective Mr. Tapia is a 50-year-old male with a past medical history of hypertension, morbid obesity, diabetes, alcohol abuse, and paroxysmal atrial fibrillation who was admitted directly to the hospital by cardiology for initiation of flecainide. Per documentation he was admitted to the hospital in April 2021 for concerns of shortness of breath and was found to be in atrial fibrillation with RVR. At that time he was discharged on diltiazem, Eliquis, furosemide, and digoxin. It was felt at that time that he could pursue cardioversion as an outpatient once he had been anticoagulated for 30 days. Unfortunately this was delayed due to abnormal stress test for which he underwent cardiac catheterization that showed normal coronary arteries. He underwent DCCV on 09/01/2021 and unfortunately did not mean sinus rhythm. Since he does not seem to tolerate atrial fibrillation all that well he was admitted to be started on flecainide with plans of having a cardioversion done after 4 doses of the flecainide has been given. We have been consulted for medical management of his diabetes. He states that he has been having increased fatigue and difficulty working secondary to this fatigue and notes increased shortness of breath with activity and exertion and states that his heart rates accelerate with exertion as well. He reports that he takes basal insulin twice daily and a sliding scale with meals. He reports his most recent hemoglobin A1c was 7.2. Objective Data Objective Data Vital Signs: Vital Signs Temp Pulse Resp BP Pulse Ox 98.1 F 75 18 142/86 H 96 10/08/21 08:50 10/08/21 11:05 10/08/21 08:50 10/08/21 11:05 10/08/21 08:50 Oxygen Delivery Method Room Air Weight: 145.9 kg Body Mass Index (BMI) 46.1 Intake & Output: Intake and Output for Last 24 Hours 10/06/21 10/07/21 10/08/21 23:59 23:59 23:59 Intake Total 400 / 400 Balance 400 / 400 Lab / Micro Data Result Diagrams: 10/08/21 10:46 10/08/21 10:46 Labs: Laboratory Results - last 24 hr 10/08/21 10:46: WBC 9.1, RBC 4.70, Hgb 14.7, Hct 43.8, MCV 93.2, MCH 31.3, MCHC 33.6, RDW Std Deviation 42.5, RDW Coeff of Russ 12.3, Plt Count 217, MPV 11.3, Immature Gran % (Auto) 0.300, Neut % (Auto) 64.4, Lymph % (Auto) 26.5, [place] % (Auto) 7.4, Eos % (Auto) 1.0, Baso % (Auto) 0.4, Absolute Neuts (auto) 5.9, Absolute Lymphs (auto) 2.41, Nucleated RBC % 0 10/08/21 10:46: Sodium 140, Potassium 4.1, Chloride 106, Carbon Dioxide 29.0, Anion Gap 5, BUN 11, Creatinine 1.02, Estim Creat Clear Calc 88.47, Est GFR (MDRD) Af Amer 99, Est GFR (MDRD) Non-Af 82, BUN/Creatinine Ratio 10.8, Glucose 154 H, Calcium 8.9 10/08/21 12:21: POC Glucose 174 H Physical Exam Const alert, oriented x3 and no apparent distress Constitutional Narrative: Morbidly obese white male sitting up in bed, appears comfortable, nontoxic, family member at the bedside Exam Limitations: no limitations Nutritional Appearance: morbidly obese HEENT head/scalp atraumatic, moist oral mucous membranes and oropharynx normal HEENT Narrative: Mallampati 2-3, fair dentition, no thrush Head and Scalp: normocephalic Eyes PERRL, EOMs intact bilaterally and conjunctivae normal Eyes Narrative: No scleral icterus Neck no lymphadenopathy, supple, no JVD and no carotid bruits Neck Narrative: Trachea midline Resp normal respiratory effort, no retractions, no use of accessory muscles and clear to auscultation bilaterally Auscultation: Negative for crackles, rales, rhonchi or wheezes Cardio regular rate, S1 normal heart sound, S2 normal heart sound, no murmurs, no rub, no gallops, no clicks and no JVD Cardio Narrative: Current rate is normal although the rhythm is irregular GI normal to inspection, nondistended, normoactive bowel sounds, soft to palpation, non-tender and non-distended Extremity normal to inspection and no clubbing, cyanosis or edema Peripheral Pulses: Yes pulses 2+ throughout Skin no rashes or lesions noted, no wounds, skin turgor normal, no jaundice, no petechiae and no mottling Neuro oriented x3, CN's II-XII intact bilaterally, moves all extremities and no focal motor deficits Sensorium / Orientation: awake and alert Speech: speech normal Psych affect normal Assessment & Plan Assessment/Plan (1) Atrial fibrillation with rapid ventricular response: PLAN: Paroxysmal atrial fibrillation with RVR -Patient markedly intolerant -Flecainide per cardiology -Continue apixaban -DCCV after 4 doses of flecainide -All cardiac management per cardiology Hypertension -Continue home medications per cardiology GERD -Continue Protonix DM-2 -Most recent A1c was 7.2 per discussion with patient -Continue home Lantus 33 units twice daily -Continue home Humalog 20 units 3 times daily -Accu-Cheks before meals and at bedtime -SSI Alcohol abuse -No current signs of withdrawal -Monitor closely -Thiamine and folate -If patient demonstrates any signs of withdrawal will add phenobarbital DVT prophylaxis -Apixaban CODE STATUS -Full code Charges/Coding Visit Charges Inpatient E&M: 87619 Subs Hosp L2
--- NOTE | 2021-10-08 14:37 | EKG12_ITS ---
Test Reason : Blood Pressure : / mmHG Vent. Rate : 063 BPM Atrial Rate : 063 BPM P-R Int : 178 ms QRS Dur : 086 ms QT Int : 438 ms P-R-T Axes : 027 030 051 degrees QTc Int : 448 ms Normal sinus rhythm Normal ECG When compared with ECG of 09-OCT-2021 11:12, MANUAL COMPARISON REQUIRED, DATA IS UNCONFIRMED Confirmed by GALINA COHEN, RASTA ([id number]), society editor MARTY TALLEY ([id number]) on 10/14/2021 11:29:51 AM Referred By: JM Confirmed By:RASTA MOJICA MD
[2021-10-08 14:56] LABS: Bedside Glucose 124 mg/dL (70-110)
[2021-10-08] MEDS: Furosemide 40 MG Tablet PO (17:50)
[2021-10-08 18:06] LABS: Bedside Glucose 164 mg/dL (70-110)
[2021-10-08] MEDS: dilTIAZem CD 120 MG Capsule PO (21:23)
[2021-10-08] MEDS: Pantoprazole Sodium 20 MG Tablet PO (21:23)
[2021-10-08] MEDS: APIXABAN 5 MG TABLET PO (21:23)
[2021-10-08] MEDS: Carvedilol 25 MG Tablet PO (21:24)
[2021-10-08 21:45] LABS: Bedside Glucose 155 mg/dL (70-110)
[2021-10-09] VITALS (11 sets, daily range): BP systolic 118–136; BP diastolic 94–97; PULSE 73–105; RESP 16–18; TEMP 36.3–37.1; O2SAT 96–99
--- NOTE | 2021-10-09 05:55 | EKG12_ITS ---
Test Reason : AM EKG Blood Pressure : / mmHG Vent. Rate : 076 BPM Atrial Rate : 129 BPM P-R Int : 000 ms QRS Dur : 080 ms QT Int : 388 ms P-R-T Axes : 000 034 044 degrees QTc Int : 436 ms Atrial fibrillation Abnormal ECG Confirmed by HILARY COHEN, VY ([id number]), greeting card editor MARTY TALLEY ([id number]) on 10/09/2021 11:41:49 AM Referred By: HILARY Confirmed By:VY RICHARD MD
[2021-10-09] MEDS: Insulin Lispro 100 UNIT/ML INSULN.PEN SC ×2 (06:35→17:10)
[2021-10-09 06:46] LABS: Bedside Glucose 150 mg/dL (70-110)
[2021-10-09 06:49] LABS: Anion Gap 5 (5-15); BUN 14 mg/dL (7-18); BUN/Creat Ratio 13.7 RATIO (10-20); Calcium,Total 8.6 mg/dL (8.5-10.1); Chloride 105 mmol/L (98-107); Creatinine, Serum 1.02 mg/dL (0.70-1.30); EST Glomerular Filtration Rate 82 mL/min (>60); Est Glom Filt Rate - Afr Amer 99 mL/min (>60); Estimated Creatinine Clearance 88.47 ml/min; Glucose 134 mg/dL (74-106); Potassium 3.8 mmol/L (3.5-5.1); Sodium Level 140 mmol/L (136-145)
[2021-10-09] MEDS: APIXABAN 5 MG TABLET PO ×2 (09:13→21:10)
[2021-10-09] MEDS: Flecainide 100 MG Tablet PO ×2 (09:13→21:11)
[2021-10-09] MEDS: Folic Acid 1 MG Tablet PO (09:13)
[2021-10-09] MEDS: Pantoprazole Sodium 20 MG Tablet PO ×2 (09:13→21:11)
[2021-10-09] MEDS: Furosemide 40 MG Tablet PO ×2 (09:13→17:09)
[2021-10-09] MEDS: Losartan Potassium 100 MG Tablet PO (09:13)
[2021-10-09] MEDS: Thiamine Hydrochloride 100 MG Tablet 200 MG PO (09:13)
[2021-10-09] MEDS: Carvedilol 25 MG Tablet PO ×2 (09:13→21:10)
[2021-10-09] MEDS: dilTIAZem CD 120 MG Capsule PO ×2 (09:14→21:11)
--- NOTE | 2021-10-09 09:16 | EKG12_ITS ---
Test Reason : NEW ADMISSION/NEW ME Blood Pressure : / mmHG Vent. Rate : 073 BPM Atrial Rate : 131 BPM P-R Int : 000 ms QRS Dur : 080 ms QT Int : 400 ms P-R-T Axes : 000 039 031 degrees QTc Int : 440 ms Atrial fibrillation Abnormal ECG Confirmed by HILARY COHEN, VY ([id number]), editor house organ MARTY TALLEY ([id number]) on 10/09/2021 11:39:48 AM Referred By: HILARY Confirmed By:VY RICHARD MD
--- NOTE | 2021-10-09 09:18 | PN.CARD_ITS ---
Subjective Subjective The patient appears to be resting comfortably in no acute distress. Objective Data Vital Signs: Vital Signs Temp Pulse Resp BP Pulse Ox 97.4 F L 105 H 16 131/94 H 98 10/09/21 09:09 10/09/21 09:09 10/09/21 09:09 10/09/21 09:09 10/09/21 09:09 Oxygen Delivery Method Room Air Weight: 321 lb 10.471 oz Body Mass Index (BMI) 46.1 Intake & Output: Intake and Output for Last 24 Hours 10/07/21 10/08/21 10/09/21 23:59 23:59 23:59 Intake Total 640 / 640 Balance 640 / 640 Lab / Micro Data Result Diagrams: 10/08/21 10:46 10/09/21 05:38 Labs: Laboratory Results - last 24 hr 10/08/21 10:46: WBC 9.1, RBC 4.70, Hgb 14.7, Hct 43.8, MCV 93.2, MCH 31.3, MCHC 33.6, RDW Std Deviation 42.5, RDW Coeff of Russ 12.3, Plt Count 217, MPV 11.3, Immature Gran % (Auto) 0.300, Neut % (Auto) 64.4, Lymph % (Auto) 26.5, Jefferson % (Auto) 7.4, Eos % (Auto) 1.0, Baso % (Auto) 0.4, Absolute Neuts (auto) 5.9, Absolute Lymphs (auto) 2.41, Nucleated RBC % 0 10/08/21 10:46: Sodium 140, Potassium 4.1, Chloride 106, Carbon Dioxide 29.0, Anion Gap 5, BUN 11, Creatinine 1.02, Estim Creat Clear Calc 88.47, Est GFR (MDRD) Af Amer 99, Est GFR (MDRD) Non-Af 82, BUN/Creatinine Ratio 10.8, Glucose 154 H, Calcium 8.9 10/08/21 12:21: POC Glucose 174 H 10/08/21 14:35: POC Glucose 124 H 10/08/21 17:48: POC Glucose 164 H 10/08/21 21:32: POC Glucose 155 H 10/09/21 05:38: Sodium 140, Potassium 3.8, Chloride 105, Carbon Dioxide 30.0, Anion Gap 5, BUN 14, Creatinine 1.02, Estim Creat Clear Calc 88.47, Est GFR (MDRD) Af Amer 99, Est GFR (MDRD) Non-Af 82, BUN/Creatinine Ratio 13.7, Glucose 134 H, Calcium 8.6 10/09/21 06:32: POC Glucose 150 H Cardiology Labs/Tests 10/08/21 10:46: WBC 9.1, RBC 4.70, Hgb 14.7, Hct 43.8, MCV 93.2, MCH 31.3, MCHC 33.6, Plt Count 217, MPV 11.3, Immature Gran % (Auto) 0.300, Neut % (Auto) 64.4, Lymph % (Auto) 26.5, Jefferson % (Auto) 7.4, Eos % (Auto) 1.0, Baso % (Auto) 0.4, Ab solute Neuts (auto) 5.9, Nucleated RBC % 0 10/08/21 10:46: Sodium 140, Potassium 4.1, Chloride 106, Carbon Dioxide 29.0, Anion Gap 5, BUN 11, Creatinine 1.02, Est GFR (MDRD) Af Amer 99, Est GFR (MDRD) Non-Af 82, BUN/Creatinine Ratio 10.8, Glucose 154 H, Calcium 8.9 10/09/21 05:38: Sodium 140, Potassium 3.8, Chloride 105, Carbon Dioxide 30.0, Anion Gap 5, BUN 14, Creatinine 1.02, Est GFR (MDRD) Af Amer 99, Est GFR (MDRD) Non-Af 82, BUN/Creatinine Ratio 13.7, Glucose 134 H, Calcium 8.6 Rhythm: Atrial fibrillation EKG: Atrial fibrillation Physical Exam Const alert, oriented x3, no apparent distress, average body habitus, healthy appearing and well nourished HEENT normocephalic, head/scalp atraumatic, hearing grossly normal bilaterally, nasal mucous membranes and turbinates normal and oropharynx normal Eyes PERRL, EOMs intact bilaterally, conjunctivae normal, no scleral icterus, no papilledema and normal visual tovar by confrontation Neck full ROM Chest inspection of chest normal and palpation of chest normal Resp normal respiratory effort and clear to auscultation bilaterally Cardio Jugular Venous Distention: Negative for JVD Rate: regular rate Rhythm: abnormal rhythm irregularly irregular Heart Sounds: S1 normal and S2 normal; Negative for click, gallop, murmur or rub GI normal to inspection, nondistended, normoactive bowel sounds, soft to palpation, non-tender and non-distended Extremity normal to inspection, full ROM, normal capillary refill and no clubbing, cyanosis or edema Skin no rashes or lesions noted Neuro oriented x3, CN's II-XII intact bilaterally, moves all extremities, no focal motor deficits and no sensory deficits noted Psych mental status grossly normal Assessment & Plan Assessment/Plan (1) Longstanding persistent atrial fibrillation: PLAN: The patient continues with atrial fibrillation. He continues medical therapy with rate control and antiarrhythmic initiation as well as his anticoagulant therapy. He will continue to be monitored. Tomorrow, if he has not converted to sinus rhythm, consideration will be given to repeat synchronized biphasic DC cardioversion in an attempt to regain sinus rhythm. (2) Benign essential hypertension: PLAN: The patient's blood pressure has fluctuated as an outpatient and inpatient. At the moment he will continue medical therapy with his blood pressure being followed with adjustment as deemed appropriate over time. (3) Diabetes: PLAN: The patient's case has been discussed with Dr. Fernandez of the [facility] staff. Her assistance is appreciated with respect to monitoring the patient's diabetes mellitus. Addt'l Comments The above has been discussed and reviewed with the patient and he is agreeable to the aforementioned evaluation and care plan. This note was generated using a voice recognition system and there may be incorrect words, spelling or punctuation that were not noted when reviewing the office note prior to saving.
[2021-10-09 10:35] LABS: Bedside Glucose 147 mg/dL (70-110)
[2021-10-09] MEDS: Insulin Lispro 100 UNIT/ML INSULN.PEN 20 UNIT SC (11:54)
[2021-10-09 12:00] LABS: Bedside Glucose 180 mg/dL (70-110)
--- NOTE | 2021-10-09 15:12 | PCM.PN.HOSP ---
Subjective Subjective No issues overnight. Patient states he is feeling okay. No issues with tolerating his flecainide thus far. Objective Data Objective Data Vital Signs: Vital Signs Temp Pulse Resp BP Pulse Ox 97.4 F L 105 H 16 131/94 H 98 10/09/21 09:09 10/09/21 09:09 10/09/21 09:09 10/09/21 09:09 10/09/21 09:09 Oxygen Delivery Method Room Air Weight: 145.9 kg Body Mass Index (BMI) 46.1 Intake & Output: Intake and Output for Last 24 Hours 10/07/21 10/08/21 10/09/21 23:59 23:59 23:59 Intake Total 640 / 640 480 / 480 Balance 640 / 640 480 / 480 Lab / Micro Data Result Diagrams: 10/08/21 10:46 10/09/21 05:38 Labs: Laboratory Results - last 24 hr 10/08/21 17:48: POC Glucose 164 H 10/08/21 21:32: POC Glucose 155 H 10/09/21 05:38: Sodium 140, Potassium 3.8, Chloride 105, Carbon Dioxide 30.0, Anion Gap 5, BUN 14, Creatinine 1.02, Estim Creat Clear Calc 88.47, Est GFR (MDRD) Af Amer 99, Est GFR (MDRD) Non-Af 82, BUN/Creatinine Ratio 13.7, Glucose 134 H, Calcium 8.6 10/09/21 06:32: POC Glucose 150 H 10/09/21 09:08: POC Glucose 147 H 10/09/21 11:53: POC Glucose 180 H Physical Exam Const alert, oriented x3, no apparent distress, average body habitus, healthy appearing and well nourished Constitutional Narrative: Morbidly obese white male up in the bathroom brushing his teeth, appears comfortable, nontoxic Exam Limitations: no limitations Nutritional Appearance: morbidly obese HEENT normocephalic, head/scalp atraumatic, hearing grossly normal bilaterally, nasal mucous membranes and turbinates normal, moist oral mucous membranes and oropharynx normal Head and Scalp: normocephalic Eyes no scleral icterus, no papilledema and normal visual tovar by confrontation Neck full ROM Chest inspection of chest normal and palpation of chest normal Resp normal respiratory effort, no retractions, no use of accessory muscles and clear to auscultation bilaterally Auscultation: Negative for crackles, rales, rhonchi or wheezes Cardio S1 normal heart sound, S2 normal heart sound, no murmurs, no rub, no gallops, no clicks and no JVD Cardio Narrative: Mild tachycardia with irregular rhythm Jugular Venous Distention: Negative for JVD Rate: regular rate Rhythm: abnormal rhythm irregularly irregular Heart Sounds: S1 normal and S2 normal; Negative for click, gallop, murmur or rub GI normal to inspection, nondistended, normoactive bowel sounds, soft to palpation, non-tender and non-distended Extremity normal to inspection, full ROM, normal capillary refill and no clubbing, cyanosis or edema Peripheral Pulses: Yes pulses 2+ throughout Neuro oriented x3, moves all extremities and no focal motor deficits Sensorium / Orientation: awake and alert Speech: speech normal Psych mental status grossly normal Assessment & Plan Assessment/Plan (1) Atrial fibrillation with rapid ventricular response: PLAN: Paroxysmal atrial fibrillation with RVR -Patient markedly intolerant -Flecainide per cardiology -Continue apixaban -DCCV after 4 doses of flecainide--> tomorrow a.m. with plans to discharge tomorrow after -Referral has been made to EP -Recommend outpatient polysomnography -All cardiac management per cardiology Hypertension -Continue home medications per cardiology GERD -Continue Protonix DM-2 -Most recent A1c was 7.2 per discussion with patient -Blood sugars appear well controlled while here -Continue home Lantus 33 units twice daily -Continue home Humalog 20 units 3 times daily -Accu-Cheks before meals and at bedtime -SSI Alcohol abuse -No current signs of withdrawal -Monitor closely -Thiamine and folate -If patient demonstrates any signs of withdrawal will add phenobarbital DVT prophylaxis -Apixaban CODE STATUS -Full code Charges/Coding Visit Charges Inpatient E&M: 97435 Subs Hosp L1
[2021-10-09 17:35] LABS: Bedside Glucose 150 mg/dL (70-110)
[2021-10-09 23:11] LABS: Bedside Glucose 195 mg/dL (70-110)
[2021-10-10] VITALS (11 sets, daily range): BP systolic 127–149; BP diastolic 57–99; PULSE 65–87; RESP 13–18; TEMP 36.5–37.2; O2SAT 95–99
[2021-10-10 08:05] LABS: Bedside Glucose 120 mg/dL (70-110)
[2021-10-10] MEDS: Thiamine Hydrochloride 100 MG Tablet 200 MG PO (09:03)
[2021-10-10] MEDS: Carvedilol 25 MG Tablet PO (09:04)
[2021-10-10] MEDS: dilTIAZem CD 120 MG Capsule PO (09:04)
[2021-10-10] MEDS: Losartan Potassium 100 MG Tablet PO (09:04)
[2021-10-10] MEDS: Furosemide 40 MG Tablet PO (09:04)
[2021-10-10] MEDS: Pantoprazole Sodium 20 MG Tablet PO (09:05)
[2021-10-10] MEDS: Flecainide 100 MG Tablet PO (09:05)
[2021-10-10] MEDS: Folic Acid 1 MG Tablet PO (09:05)
[2021-10-10] MEDS: APIXABAN 5 MG TABLET PO (09:05)
--- NOTE | 2021-10-10 09:47 | PN.CARD_ITS ---
Subjective Subjective The patient is awake and alert and in no acute distress. He has no new acute cardiac complaints. Objective Data Vital Signs: Vital Signs Temp Pulse Resp BP Pulse Ox 98.9 F 69 14 127/99 H 99 10/10/21 08:44 10/10/21 08:44 10/10/21 08:44 10/10/21 08:44 10/10/21 08:44 Oxygen Flow Rate (L/min) 2 Oxygen Delivery Method Room Air Weight: 321 lb 10.471 oz Body Mass Index (BMI) 46.1 Intake & Output: Intake and Output for Last 24 Hours 10/08/21 10/09/21 10/10/21 23:59 23:59 23:59 Intake Total 640 / 640 720 / 720 Balance 640 / 640 720 / 720 Lab / Micro Data Result Diagrams: 10/08/21 10:46 10/09/21 05:38 Labs: Laboratory Results - last 24 hr 10/09/21 09:08: POC Glucose 147 H 10/09/21 11:53: POC Glucose 180 H 10/09/21 17:06: POC Glucose 150 H 10/09/21 21:08: POC Glucose 195 H 10/10/21 08:02: POC Glucose 120 H Cardiology Labs/Tests Rhythm: Atrial fibrillation Physical Exam Const alert, oriented x3, no apparent distress, average body habitus, healthy appearing and well nourished HEENT normocephalic, head/scalp atraumatic, hearing grossly normal bilaterally, nasal mucous membranes and turbinates normal and oropharynx normal Eyes PERRL, EOMs intact bilaterally, conjunctivae normal, no scleral icterus, no papilledema and normal visual tovar by confrontation Neck full ROM Chest inspection of chest normal and palpation of chest normal Resp normal respiratory effort and clear to auscultation bilaterally Cardio Jugular Venous Distention: Negative for JVD Rate: regular rate Rhythm: abnormal rhythm irregularly irregular Heart Sounds: S1 normal and S2 normal; Negative for click, gallop, murmur or rub GI normal to inspection, nondistended, normoactive bowel sounds, soft to palpation, non-tender and non-distended Extremity normal to inspection, full ROM, normal capillary refill and no clubbing, cyanosis or edema Skin no rashes or lesions noted Neuro oriented x3, CN's II-XII intact bilaterally, moves all extremities, no focal motor deficits and no sensory deficits noted Psych mental status grossly normal Assessment & Plan Assessment/Plan (1) Longstanding persistent atrial fibrillation: PLAN: The patient continues with atrial fibrillation. He continues medical therapy with rate control and antiarrhythmic initiation as well as his anticoagulant therapy. The tentative plan is for the patient to proceed with synchronized biphasic DC cardioversion later this day. Hopefully the patient will regain sinus rhythm and will be able to be released home for continued outpatient follow-up. (2) Benign essential hypertension: PLAN: The patient's blood pressure has fluctuated as an outpatient and inpatient. At the moment he will continue medical therapy with his blood pressure being followed with adjustment as deemed appropriate over time. (3) Diabetes: PLAN: The patient's case has been discussed with Dr. Fernandez of the [facility] staff. Her assistance is appreciated with respect to monitoring the patient's diabetes mellitus. Addt'l Comments This note was generated using a voice recognition system and there may be incorr ect words, spelling or punctuation that were not noted when reviewing the office note prior to saving.
--- NOTE | 2021-10-10 12:16 | PCM.PN.HOSP ---
Subjective Subjective Patient states he is feeling well. Awaiting his cardioversion which will be done today around noon. States he believes he is set up for an outpatient polysomnography soon and agrees that is important he gets this taken care of. Objective Data Objective Data Vital Signs: Vital Signs Temp Pulse Resp BP Pulse Ox 97.8 F 80 16 131/95 H 96 10/10/21 12:13 10/10/21 12:13 10/10/21 12:13 10/10/21 12:13 10/10/21 12:13 Oxygen Flow Rate (L/min) 2 Oxygen Delivery Method Room Air Weight: 145.9 kg Body Mass Index (BMI) 46.1 Intake & Output: Intake and Output for Last 24 Hours 10/08/21 10/09/21 10/10/21 23:59 23:59 23:59 Intake Total 640 / 640 720 / 720 Balance 640 / 640 720 / 720 Lab / Micro Data Result Diagrams: 10/08/21 10:46 10/09/21 05:38 Labs: Laboratory Results - last 24 hr 10/09/21 17:06: POC Glucose 150 H 10/09/21 21:08: POC Glucose 195 H 10/10/21 08:02: POC Glucose 120 H Physical Exam Const alert, oriented x3, no apparent distress, average body habitus, healthy appearing and well nourished Constitutional Narrative: Morbidly obese white male sitting up in bed, watching television, appears comfortable, nontoxic Exam Limitations: no limitations Nutritional Appearance: morbidly obese HEENT normocephalic, head/scalp atraumatic, hearing grossly normal bilaterally, nasal mucous membranes and turbinates normal, moist oral mucous membranes and oropharynx normal Eyes no scleral icterus, no papilledema and normal visual tovar by confrontation Eyes Narrative: No scleral icterus Neck full ROM Neck Narrative: Trachea midline Chest inspection of chest normal and palpation of chest normal Resp normal respiratory effort, no retractions, no use of accessory muscles and clear to auscultation bilaterally Auscultation: Negative for crackles, rales, rhonchi or wheezes Cardio regular rate, S1 normal heart sound, S2 normal heart sound, no murmurs, no rub, no gallops, no clicks and no JVD Cardio Narrative: Irregular irregular rhythm Jugular Venous Distention: Negative for JVD Rate: regular rate Rhythm: abnormal rhythm irregularly irregular Heart Sounds: S1 normal and S2 normal; Negative for click, gallop, murmur or rub GI normal to inspection, nondistended, normoactive bowel sounds, soft to palpation, non-tender and non-distended Extremity normal to inspection, full ROM, normal capillary refill and no clubbing, cyanosis or edema Peripheral Pulses: Yes pulses 2+ throughout Neuro oriented x3, moves all extremities and no focal motor deficits Sensorium / Orientation: awake and alert Speech: speech normal Psych mental status grossly normal Assessment & Plan Assessment/Plan (1) Atrial fibrillation with rapid ventricular response: PLAN: Paroxysmal atrial fibrillation with RVR -Patient markedly intolerant -Flecainide per cardiology -Continue apixaban -DCCV after 4 doses of flecainide--> today at noon -Referral has been made to EP -Recommend outpatient polysomnography--> patient states that he has been set up for this -All cardiac management per cardiology Hypertension -Continue home medications per cardiology GERD -Continue Protonix DM-2 -Most recent A1c was 7.2 per discussion with patient -Blood sugars appear well controlled while here -Continue home Lantus 33 units twice daily -Continue home Humalog 20 units 3 times daily -Accu-Cheks before meals and at bedtime -SSI Alcohol abuse -No current signs of withdrawal -Monitor closely -Thiamine and folate -If patient demonstrates any signs of withdrawal will add phenobarbital DVT prophylaxis -Apixaban CODE STATUS -Full code Dispo. -Probable discharge after cardioversion today. Okay from my standpoint. Charges/Coding Visit Charges Inpatient E&M: 25684 Subs Hosp L2
[2021-10-10 12:35] LABS: Bedside Glucose 153 mg/dL (70-110)
--- NOTE | 2021-10-10 13:01 | EKG12_ITS ---
Test Reason : Blood Pressure : / mmHG Vent. Rate : 095 BPM Atrial Rate : 153 BPM P-R Int : 000 ms QRS Dur : 076 ms QT Int : 372 ms P-R-T Axes : 000 027 061 degrees QTc Int : 467 ms Atrial fibrillation /Flutter Septal infarct , age undetermined , cannot be excluded Abnormal ECG Confirmed by HILARY COHEN, VY ([id number]), loan expeditor MARTY TALLEY ([id number]) on 10/13/2021 10:42:35 AM Referred By: HILARY Confirmed By:VY RICHARD MD
--- NOTE | 2021-10-10 13:02 | CARDIOVERS ---
Cardioversion Cardioversion: Date: 10-10-2021 Procedure: Synchronized Biphasic DC Cardioversion Indications: Atrial fibrillation Consent: Per the Patient Anesthesia: per Dr. Sharpe of pulmonology and critical care medicine with propofol 160 mg IV push total Procedure: Synchronized Biphasic DC Cardioversion: 200 J x 1: Result: Sinus rhythm Complications: no apparent complications This note was generated with [employer] dictation software. It may contain incorrect words, spelling, and punctuation that were not noted in checking the note before signing.
[2021-10-10] MEDS: Propofol 200 MG/20 ML Vial IV BOLUS (13:03)
--- NOTE | 2021-10-10 13:45 | PCM.OP.PRO ---
Assessment & Plan Assessment/Plan (1) Atrial fibrillation with rapid ventricular response: (2) CONRAD (obstructive sleep apnea): (3) CHF exacerbation: QUALIFIERS: Heart failure type: unspecified Qualified Code(s): I50.9 - Heart failure, unspecified Procedure Report Date of Procedure: 10/10/21 CONSCIOUS SEDATION REPORT BRIEF HISTORY OF PRESENT ILLNESS: The patient is a 50-year-old male who presented to [facility] for an elective inpatient cardioversion due to underlying atrial fibrillation. The patient reports no PO intake since midnight, but is currently therapeutic on anticoagulation. The patient does have a history of obstructive sleep apnea. The patient reports a history of smoking and COPD. The patient denies any recent constitutional symptoms such as fevers, chills, nausea or vomiting. The patient denies previous applicable anesthetic complications. PHYSICAL EXAMINATION: VITAL SIGNS: Reviewed and were acceptable. GENERAL: The patient is a male, in no apparent distress, speaking in full sentences. HEENT: Normocephalic, atraumatic. Mucous membranes are moist and pink. Good mouth opening noted. Trachea is midline. Good neck mobility. MP IV CHEST: S1, S2 irregularly irregular. No murmurs, rubs or gallops were noted. LUNGS: Clear to auscultation bilaterally without appreciable wheezes, rales or rhonchi. ABDOMEN: Soft, nontender, nondistended. Positive bowel sounds. EXTREMITIES: There is no clubbing, cyanosis or edema. ASA Class: II DESCRIPTION OF PROCEDURE: After confirmation of informed consent, the patient's anesthesia plan was reviewed in detail. Propofol was chosen. Risks and benefits were reviewed and the patient agreed to proceed. At 12:40 PM, the patient was given 40 mg of propofol. The patient required a total of 160 mg of propofol throughout the procedure to achieve appropriate sedation. The patient achieved an appropriate level of sedation and received 1 attempt synchronized cardioversion, at [address] Pierce at the bedside. This was successful in achieving normal sinus rhythm. The patient was monitored until 12:55 PM, at which time the patient reached their baseline mental status and function. The patient tolerated the procedure well. COMPLICATIONS: None ESTIMATED BLOOD LOSS: None RECOMMENDATIONS: Okay to recover in usual fashion. Procedures Pulmonary 9xxxx: [id number] Con Sedation
--- NOTE | 2021-10-10 14:14 | NURSING ---
Read and reviewed SN documentation. Reviewed plan of care with SN
--- NOTE | 2021-10-10 15:24 | DS.PCM_ITS ---
Documented by User: Leny BOWER PA 10/10/21 15:48 Providers Date of Admission: 10/08/21 Primary Care Physician: Dr. Ryan Colbert MD Consultations 10/08/21 10:12 Consult: Hospitalist Routine Consulting Provider: Joyce Fernandez Reason for Consult: management of DM EMERGENT Consult: No MD Notified: Yes Date Notified: 10/08/21 Time Notified: 10:12 Method of Notification: Verbal Reason For Visit: ANTIARRYTHMIC THERAPY Diagnosis Discharge Diagnosis (1) Atrial fibrillation with rapid ventricular response: Status: Resolved Code(s): I48.91 - Unspecified atrial fibrillation Plan: Patient underwent a cardioversion today while he was on flecainide. He will be discharged home on his Eliquis, carvedilol, diltiazem. Will stop his digoxin. He will follow-up with his EP consult. He will also continue to pursue his sle ep study. We will follow-up in the office in 1 week for an EKG. (2) CONRAD (obstructive sleep apnea): Status: Acute Code(s): G47.33 - Obstructive sleep apnea (adult) (pediatric) (3) CHF exacerbation: Status: Acute Code(s): I50.9 - Heart failure, unspecified Qualifiers: Heart failure type: unspecified Qualified Code(s): I50.9 - Heart failure, unspecified Medications at Discharge Home Medications Humalog U-100 Insulin 20 unit SUBCUT TID 05/07/21 Lantus Solostar U-100 Insulin 33 unit SUBCUT BID 05/07/21 carvedilol 25 mg PO BID 05/07/21 losartan 100 mg PO DAILY 05/07/21 omeprazole 20 mg PO BID 05/07/21 diltiazem HCl 120 mg capsule,extended release 24 hr 120 mg PO BID 30 Days #60 cap 06/04/21 furosemide 40 mg tablet 40 mg PO BID #60 tab 06/04/21 turmeric root extract 500 mg capsule 1,500 mg PO DAILY cap 10/03/21 Eliquis 5 mg PO BID 10/08/21 flecainide 100 mg PO BID #60 tab 10/10/21 Hospital Course Operations None Procedures 2-D Echocardiogram Summary of Care Provided Minutes Spent on Discharge: 55 Hospital Course: This is a 50-year-old gentleman that is seen by our office for persistent atrial fibrillation with RVR. He was cardioverted a month ago unfortunately did not maintain sinus rhythm. He was admitted for flecainide therapy with cardioversion today. Cardioversion was successful. Patient will be discharged home on flecainide. He will follow-up in the office accordingly. Physical Exam Const alert, oriented x3, no apparent distress, average body habitus, healthy appearing and well nourished HEENT normocephalic, head/scalp atraumatic, hearing grossly normal bilaterally, nasal mucous membranes and turbinates normal and oropharynx normal Eyes PERRL, EOMs intact bilaterally, conjunctivae normal, no scleral icterus, no papilledema and normal visual tovar by confrontation Neck full ROM Chest inspection of chest normal and palpation of chest normal Resp normal respiratory effort and clear to auscultation bilaterally Cardio Jugular Venous Distention: Negative for JVD Rate: regular rate Rhythm: abnormal rhythm irregularly irregular Heart Sounds: S1 normal and S2 normal; Negative for click, gallop, murmur or rub GI normal to inspection, nondistended, normoactive bowel sounds, soft to palpation, non-tender and non-distended Extremity normal to inspection, full ROM, normal capillary refill and no clubbing, cyanosis or edema Skin no rashes or lesions noted Neuro oriented x3, CN's II-XII intact bilaterally, moves all extremities, no focal motor deficits and no sensory deficits noted Psych mental status grossly normal Weight / BMI Weight Weight: 321 lb 10.471 oz Body Mass Index (BMI) 46.1 ABG / Lab / Microbiology Data Result Diagrams: 10/08/21 10:46 10/09/21 05:38 Laboratory: Laboratory Results - last 24 hr 10/09/21 17:06: POC Glucose 150 H 10/09/21 21:08: POC Glucose 195 H 10/10/21 08:02: POC Glucose 120 H 10/10/21 12:32: POC Glucose 153 H D/C Instructions Discharge Diet: 1800 Calorie Control Diet Discharge Activity: Return to Normal Activity Return to work on: 10/12/21 Please Follow Up With: Zeferino Pierce MD When: As scheduled, we will call you with a date for an EKG in 1-2 weeks. Discharge Plan Admission Admit Date/Time: 10/08/21 10:00 Primary Reason for Your Visit: Antiarrhythmic therapy with cardioversion Attending Provider: Zeferino Pierce Primary Care Provider: Ryan Colbert Consulting Providers: Joyce Fernandez Discharge Orders/Prescriptions Prescriptions: New flecainide 100 mg Tablet 100 mg PO BID Qty: 60 RF: 11 Continued turmeric root extract 500 mg capsule 1,500 mg PO DAILY RF: 0 carvedilol 25 mg Tablet 25 mg PO BID RF: 0 omeprazole 20 mg Capsule,Delayed Release(Dr/Ec) 20 mg PO BID RF: 0 losartan 100 mg Tablet 100 mg PO DAILY RF: 0 Humalog U-100 Insulin 100 unit/mL Cartridge 20 unit SUBCUT TID RF: 0 Lantus Solostar U-100 Insulin 100 unit/mL (3 mL) Insulin Pen 33 unit SUBCUT BID RF: 0 Eliquis 5 mg tablet 5 mg PO BID RF: 0 diltiazem HCl 120 mg capsule,extended release 24hr 120 mg PO BID 30 Days Qty: 60 RF: 11 furosemide 40 mg tablet 40 mg PO BID Qty: 60 RF: 11 Discontinued digoxin 125 mcg (0.125 mg) tablet 125 mcg PO DAILY 30 Days Qty: 30 RF: 11 Referrals / Follow Up: Ryan Colbert MD [Primary Care Provider] - Disposition Disposition (needs filled in before D/C Order can be placed): Home, Self Care Documented by User: Dr. Zeferino Pierce MD 10/10/21 15:43 Providers Date of Admission: 10/08/21 Reason For Visit: ANTIARRYTHMIC THERAPY Medications at Discharge Home Medications Humalog U-100 Insulin 20 unit SUBCUT TID 05/07/21 Lantus Solostar U-100 Insulin 33 unit SUBCUT BID 05/07/21 carvedilol 25 mg PO BID 05/07/21 losartan 100 mg PO DAILY 05/07/21 omeprazole 20 mg PO BID 05/07/21 diltiazem HCl 120 mg capsule,extended release 24 hr 120 mg PO BID 30 Days #60 cap 06/04/21 furosemide 40 mg tablet 40 mg PO BID #60 tab 06/04/21 turmeric root extract 500 mg capsule 1,500 mg PO DAILY cap 10/03/21 Eliquis 5 mg PO BID 10/08/21 flecainide 100 mg PO BID #60 tab 10/10/21 ABG / Lab / Microbiology Data Result Diagrams: 10/08/21 10:46 10/09/21 05:38 Meaningful Use Info Meaningful Use Diagnoses (Choose all that apply): None applicable Discharge Plan Admission Admit Date/Time: 10/08/21 10:00 Primary Reason for Your Visit: Antiarrhythmic therapy with cardioversion Attending Provider: Zeferino Pierce Primary Care Provider: Ryan Colbert Consulting Providers: Joyce Fernandez Discharge Orders/Prescriptions Prescriptions: New flecainide 100 mg Tablet 100 mg PO BID Qty: 60 RF: 11 Continued turmeric root extract 500 mg capsule 1,500 mg PO DAILY RF: 0 carvedilol 25 mg Tablet 25 mg PO BID RF: 0 omeprazole 20 mg Capsule,Delayed Release(Dr/Ec) 20 mg PO BID RF: 0 losartan 100 mg Tablet 100 mg PO DAILY RF: 0 Humalog U-100 Insulin 100 unit/mL Cartridge 20 unit SUBCUT TID RF: 0 Lantus Solostar U-100 Insulin 100 unit/mL (3 mL) Insulin Pen 33 unit SUBCUT BID RF: 0 Eliquis 5 mg tablet 5 mg PO BID RF: 0 diltiazem HCl 120 mg capsule,extended release 24hr 120 mg PO BID 30 Days Qty: 60 RF: 11 furosemide 40 mg tablet 40 mg PO BID Qty: 60 RF: 11 Discontinued digoxin 125 mcg (0.125 mg) tablet 125 mcg PO DAILY 30 Days Qty: 30 RF: 11 Referrals / Follow Up: Ryan Colbert MD [Primary Care Provider] - Disposition Disposition (needs filled in before D/C Order can be placed): Home, Self Care Charges/Coding Addendum Addendum: Addendum: The patient was brought to [facility] based upon his atrial fibrillation for initiation of antiarrhythmic therapy/monitoring. He was placed on flecainide/Tambocor 100 mg twice daily. He appeared to tolerate the m edication well and had no obvious adverse electrocardiographic findings. He subsequently underwent synchronized biphasic DC cardioversion with 200 J which resulted in sinus rhythm. The plan was for the patient to be released home for continued outpatient cardiovascular follow-up and monitoring. This note was generated using a voice recognition system and there may be incorrect words, spelling or punctuation that were not noted when reviewing the office note prior to saving.
--- NOTE | 2021-10-10 15:44 | PCM.DC ---
Discharge Instructions Diet Discharge Diet: Low fat / Low cholesterol and 1800 Calorie Control Diet Activity Discharge Activity: Return to Normal Activity May resume sexual activity in: No Restrictions Weight Bearing Status: Weight bearing as tolerated Dressing / Incision Call your doctor if you observe: Fainting spells and Increased palpitations (irregular heartbeat) Follow Up Care Please Follow Up With: Zeferino Pierce MD When: [facility] will arrange outpatient ECG (EKG) follow up and office follow up Test Results: Test results from this visit will be discussed in further detail at your follow-up appointment, if applicable. Discharge Plan Admission Admit Date/Time: 10/08/21 10:00 Primary Reason for Your Visit: Antiarrhythmic medication monitoring Attending Provider: Zeferino Pierce Primary Care Provider: Ryan Colbert Consulting Providers: Joyce Fernandez Discharge Orders/Prescriptions Prescriptions: New flecainide 100 mg Tablet 100 mg PO BID Qty: 60 RF: 11 Continued turmeric root extract 500 mg capsule 1,500 mg PO DAILY RF: 0 carvedilol 25 mg Tablet 25 mg PO BID RF: 0 omeprazole 20 mg Capsule,Delayed Release(Dr/Ec) 20 mg PO BID RF: 0 losartan 100 mg Tablet 100 mg PO DAILY RF: 0 Humalog U-100 Insulin 100 unit/mL Cartridge 20 unit SUBCUT TID RF: 0 Lantus Solostar U-100 Insulin 100 unit/mL (3 mL) Insulin Pen 33 unit SUBCUT BID RF: 0 Eliquis 5 mg tablet 5 mg PO BID RF: 0 diltiazem HCl 120 mg capsule,extended release 24hr 120 mg PO BID 30 Days Qty: 60 RF: 11 furosemide 40 mg tablet 40 mg PO BID Qty: 60 RF: 11 Discontinued digoxin 125 mcg (0.125 mg) tablet 125 mcg PO DAILY 30 Days Qty: 30 RF: 11 Referrals / Follow Up: Ryan Colbert MD [Primary Care Provider] - Zeferino Pierce MD [STAFF PHYSICIAN] - Disposition Disposition (needs filled in before D/C Order can be placed): Home, Self Care
== END 2021-10-10 16:18 | disposition home or self-care (01) | DRG 949 ==
PROVIDERS: Physician Assistant Medical; Admitting Provider Internal Medicine Cardiovascular Disease; PCP Family Medicine; Visit Provider Internal Medicine Cardiovascular Disease
DX: Z51.81 Encounter for therapeutic drug level monitoring (principal); I48.11 Longstanding persistent atrial fibrillation; Z68.42 Body mass index [BMI] 45.0-49.9, adult; I11.0 Hypertensive heart disease with heart failure; I50.32 Chronic diastolic (congestive) heart failure; E11.9 Type 2 diabetes mellitus without complications; J44.9 Chronic obstructive pulmonary disease, unspecified; F10.10 Alcohol abuse, uncomplicated; K21.9 Gastro-esophageal reflux disease without esophagitis; G47.33 Obstructive sleep apnea (adult) (pediatric); E66.01 Morbid (severe) obesity due to excess calories; Z79.01 Long term (current) use of anticoagulants; Z79.4 Long term (current) use of insulin; Z79.899 Other long term (current) drug therapy; Z87.891 Personal history of nicotine dependence
CPT/HCPCS: 36415; 80048; 82962; 85025; 93005

== ENCOUNTER → 2021-11-03 10:14 | Outpatient (CLI) | payer OTHER, SELFPAY ==
[2021-11-03 11:26] LABS: Anion Gap 8 (5-15); BUN 18 mg/dL (7-18); Calcium,Total 9.2 mg/dL (8.5-10.1); Chloride 103 mmol/L (98-107); Creatinine, Serum 1.06 mg/dL (0.70-1.30); EST Glomerular Filtration Rate 78 mL/min (>60); Est Glom Filt Rate - Afr Amer 94 mL/min (>60); Glucose 98 mg/dL (74-106); Potassium 3.7 mmol/L (3.5-5.1); Sodium Level 141 mmol/L (136-145)
== END ==
PROVIDERS: PCP Family Medicine; Visit Provider Physician Assistant Medical
DX: I10 Essential (primary) hypertension (principal)
CPT/HCPCS: 36415; 80048

== ENCOUNTER → 2021-11-11 22:18 | Outpatient (CLI) | payer OTHER, SELFPAY | PROVIDERS: PCP Family Medicine; Visit Provider Physician Assistant Medical | DX: G47.33 Obstructive sleep apnea (adult) (pediatric) (principal); I48.91 Unspecified atrial fibrillation; R06.00 Dyspnea, unspecified; I10 Essential (primary) hypertension | CPT/HCPCS: 95810 ==

== ENCOUNTER 2021-12-19 20:08 | Outpatient (CLI) | payer OTHER, SELFPAY | END 2021-12-19 23:59 | disposition short-term general hospital (02) | PROVIDERS: PCP Family Medicine; Visit Provider Nurse Practitioner Acute Care | DX: G47.33 Obstructive sleep apnea (adult) (pediatric) (principal) | CPT/HCPCS: 95811 ==

== ENCOUNTER → 2022-05-14 | Outpatient (CLI) | payer OTHER, SELFPAY ==
--- NOTE | 2022-05-14 09:54 | ECHOCS_ITS ---
Reason For Study: ATRIAL FIB-FLUTTER Procedure This was a 2D Doppler, Color Flow transthoracic echocardiogram. The study was technically difficult. Contrast injection was performed. Exam performed in department. Left Ventricle Normal LV size. Left ventricular systolic function is normal. The estimated ejection fraction is 60 %. No evidence for diastolic dysfunction. No regional wall motion abnormalities noted. Right Ventricle Normal RV size. Normal systolic function. Atria Normal left atrium. Normal right atrium. No doppler evidence for ASD. Mitral Valve There is no mitral annular calcification. Normal mitral valve. Trivial mitral valve insufficiency. Tricuspid Valve Normal tricuspid valve. Trivial tricuspid valve insufficiency. Right ventricular systolic pressure estimated to be 26 mmHg. Aortic Valve 2D echocardiographic images performed, especially in the epigastric views, appear compatible with a bicuspid aortic valve apparatus. Mild focal aortic valve calcification. Pulmonic Valve The pulmonic valve is not well visualized. Great Vessels Mildly dilated aortic root. Pericardium/Pleural No pericardial effusion. Medication 22 gauge I.V. with prn adaptor inserted into right arm. Diluted definity 4ml given slow IV push to enhance endocardial definition. MMode/2D Measurements & Calculations LVIDd: 5.2 cm IVSd: 0.97 cm Ao root diam: 4.3 cm LVIDs: 3.5 cm LVPWd: 1.0 cm RVDd: 4.4 cm FS: 32.3 % LAV(MOD-bp): 49.1 ml LVAd ap4: 49.9 cm2 SV(MOD-sp4): 127.3 ml LAV(MOD-bp) Indexed: 19.5 ml/m2 LVLd ap4: 9.6 cm LAV(MOD-sp2): 46.0 ml EDV(MOD-sp4): 208.7 ml LAV(MOD-sp4): 45.3 ml EDV(sp4-el): 219.3 ml LVAs ap4: 27.7 cm2 LVLs ap4: 7.7 cm ESV(MOD-sp4): 81.4 ml ESV(sp4-el): 85.2 ml EF(MOD-sp4): 61.0 % EF(sp4-el): 61.2 % SV(sp4-el): 134.2 ml LA A4 area: 15.8 cm2 LA dimension(2D): 3.4 cm RA A4 area: 15.3 cm2 Time Measurements MV dec time: 0.32 sec Doppler Measurements & Calculations MV E max marcell: 84.0 cm/sec Lat Peak E' Marcell: 9.6 cm/sec Med Peak E' Marcell: 8.1 cm/sec MV A max marcell: 104.2 cm/sec E/E' lat: 8.8 E/E' med: 10.4 MV E/A: 0.81 Ao V2 max: 160.8 cm/sec LV V1 max: 97.1 cm/sec PA V2 max: 92.4 cm/sec Ao max P.3 mmHg LV V1 max P.8 mmHg TR max marcell: 241.6 cm/sec TR max P.4 mmHg ECHO/Echo Complete W/ Contrast Interpretation Summary The study was technically difficult. Contrast injection was performed. Left ventricular systolic function is normal. The estimated ejection fraction is 60 %. Trivial mitral valve insufficiency. Trivial tricuspid valve insufficiency. 2D echocardiographic images performed, especially in the epigastric views, appe ar compatible with a bicuspid aortic valve apparatus. Mild focal aortic valve calcification. Mildly dilated aortic root. Right ventricular systolic pressure estimated to be 26 mmHg. No evidence for diastolic dysfunction. Ordering Physician: Zeferino Pierce Referring Physician: CAMELIA SWARTZ Performed By: Marivel Marcos RDCS
== END | disposition home or self-care (01) ==
PROVIDERS: PCP Family Medicine; Referring Provider Internal Medicine Cardiovascular Disease; Visit Provider Internal Medicine Cardiovascular Disease
DX: I48.91 Unspecified atrial fibrillation (principal)
CPT/HCPCS: 93306; Q9957; A4216; C8929

== ENCOUNTER → 2024-02-15 | Outpatient (CLI) | payer OTHER, SELFPAY ==
--- NOTE | 2024-02-15 06:50 | ECHOD_ITS ---
Reason For Study: Bicuspid AV Procedure This was a 2D Doppler, Color Flow transthoracic echocardiogram. Exam performed in department. Left Ventricle Normal LV size. Left ventricular systolic function is normal. The left ventricular ejection fraction is 60 %. No regional wall motion abnormalities noted. Right Ventricle Normal RV size. Normal systolic function. Atria Normal left atrium. Normal right atrium. Tricuspid Valve Normal tricuspid valve. Aortic Valve Bicuspid aortic valve. Mild focal aortic valve calcification. Mild aortic stenosis. Pulmonic Valve Normal pulmonic valve. Great Vessels Normal aortic root. The pulmonary artery is normal size. Inferior vena cava collapse with respiration. Pericardium/Pleural No pericardial effusion. MMode/2D Measurements & Calculations LVIDd: 4.8 cm IVSd: 1.4 cm LVOT diam: 2.4 cm LVIDs: 2.9 cm LVPWd: 1.1 cm LVOT area: 4.4 cm2 RVDd: 3.9 cm FS: 39.2 % Ao root diam: 4.5 cm LAV(MOD-bp): 58.2 ml LVAd ap4: 37.5 cm2 LAV(MOD-bp) Indexed: 22.4 ml/m2 LVLd ap4: 9.7 cm LAV(MOD-sp2): 61.1 ml EDV(MOD-sp4): 123.7 ml LAV(MOD-sp4): 53.7 ml EDV(sp4-el): 123.6 ml LVAs ap4: 22.1 cm2 LVLs ap4: 8.3 cm ESV(MOD-sp4): 50.8 ml ESV(sp4-el): 50.4 ml EF(MOD-sp4): 58.9 % EF(sp4-el): 59.2 % SV(MOD-sp4): 72.9 ml SV(MOD-sp2): 69.4 ml LVAd ap2: 36.3 cm2 LVLd ap2: 9.6 cm EDV(MOD-sp2): 114.3 ml EDV(sp2-el): 116.8 ml LVAs ap2: 20.6 cm2 LVLs ap2: 8.2 cm ESV(MOD-sp2): 44.9 ml ESV(sp2-el): 44.2 ml EF(MOD-sp2): 60.7 % SV(sp4-el): 73.2 ml LA A4 area: 18.4 cm2 LA dimension(2D): 4.1 cm TAPSE: 2.7 cm RA A4 area: 16.8 cm2 Time Measurements MV dec time: 0.28 sec Doppler Measurements & Calculations MV E max marcell: 109.7 cm/sec Lat Peak E' Marcell: 8.4 cm/sec Med Peak E' Marcell: 8.1 cm/sec MV A max marcell: 97.2 cm/sec E/E' lat: 13.1 E/E' med: 13.6 MV E/A: 1.1 MV dec slope: 388.6 cm/sec2 Ao V2 max: 189.3 cm/sec LV V1 max: 114.0 cm/sec Ao max P.3 mmHg LV V1 max P.2 mmHg Ao V2 mean: 123.2 cm/sec LV V1 mean P.9 mmHg Ao mean P.8 mmHg LV V1 mean: 81.8 cm/sec Ao V2 VTI: 36.5 cm LV V1 VTI: 26.8 cm AV (velocity ratio): 0.73 ERICK(I,D): 3.2 cm2 ERICK(V,D): 2.6 cm2 SV(LVOT): 117.6 ml PA V2 max: 105.2 cm/sec ECHO/Echo Complete Interpretation Summary Normal LV size. Left ventricular systolic function is normal. The left ventricular ejection fraction is 60 %. Bicuspid aortic valve. Mild focal aortic valve calcification. Mild aortic stenosis. Ordering Physician: Zoë Gates Referring Physician: Kevin Colbert Performed By: Tamia Henriquez RDCS
== END | disposition home or self-care (01) ==
PROVIDERS: PCP Family Medicine; Referring Provider Nurse Practitioner Gerontology; Visit Provider Nurse Practitioner Gerontology
DX: Q23.1 Congenital insufficiency of aortic valve (principal); I77.810 Thoracic aortic ectasia
CPT/HCPCS: 93306

== ENCOUNTER 2024-06-08 04:50 | Emergency (ER) | payer OTHER, SELFPAY ==
[2024-06-08 04:51] VITALS: BP 138/84; PULSE 74; RESP 16; TEMP 36.8; O2SAT 98
--- NOTE | 2024-06-08 05:08 | RAD_ITS ---
EXAM: XR CHEST, 2 VIEWS CLINICAL INDICATION: sob TECHNIQUE: Frontal and lateral views of the chest. COMPARISON: Single view chest 05/07/2021. FINDINGS: LUNGS AND PLEURAL SPACES: Unremarkable. No consolidation or edema. No pneumothorax. No effusion. HEART: Unremarkable. Cardiac silhouette not enlarged. MEDIASTINUM: Central airways and mediastinal contour are unremarkable. BONES/JOINTS: Unremarkable. No acute fracture. SOFT TISSUES: Unremarkable. RAD/Chest PA and Lateral IMPRESSION: No radiographic evidence of acute cardiopulmonary disease. Electronically Signed: Bc Martins MD at 6:07 EDT ,
--- NOTE | 2024-06-08 05:08 | EKG12_ITS ---
Test Reason : PALPITATIONS Blood Pressure : / mmHG Vent. Rate : 070 BPM Atrial Rate : 070 BPM P-R Int : 158 ms QRS Dur : 080 ms QT Int : 418 ms P-R-T Axes : 032 046 056 degrees QTc Int : 451 ms Normal sinus rhythm Normal ECG Confirmed by RENNY COHNE, GUANACO ([id number]), technical editor MARTY TALLEY ([id number]) on 06/14/2024 10:35:10 A M Referred By: CATARINO Confirmed By:LIAM LAWSON MD
[2024-06-08 05:18] LABS: Absolute Lymphocyte Count 2.39 X10^3/uL (0.83-4.51); Absolute Neutrophil Count 8.1 X10^3/uL (2.0-7.7); Basophil# 0.03 X10^3/uL; Basophil% 0.3 % (0-1); Eosinophil# 0.06 X10^3/uL; Eosinophils% 0.5 % (0-5); Hematocrit 46.6 % (40-54); Hemoglobin 15.6 g/dL (13.0-16.5); Lymphocyte # 2.39 X10^3/ul (0.83-4.51); Lymphocyte % 20.8 % (19-41); Mean Corp Hgb Conc 33.5 g/dL (32-36); Mean Corpuscular Volume 89.6 fL (80-94); Mean Platelet Vol. 11.3 fl (6.2-12.0); Monocyte# 0.79 X10^3/uL; Monocyte% 6.9 % (0-10); NRBC Flagged by Analyzer 0 % (0-5); Neutrophil # 8.14 X10^3/uL (2.7-7.7); Platelet Count 242 K/mm3 (150-450); RBC Distribution Width CV 12.8 % (11.6-14.6); White Blood Count 11.5 K/mm3 (4.4-11.0)
[2024-06-08 05:44] LABS: Anion Gap 6 (5-15); BUN 12 mg/dL (7-18); BUN/Creat Ratio 10.8 RATIO (10-20); Calcium,Total 9.6 mg/dL (8.5-10.1); Chloride 104 mmol/L (98-107); Creatinine, Serum 1.11 mg/dL (0.70-1.30); EST Glomerular Filtration Rate 73 mL/min (>60); Est Glom Filt Rate - Afr Amer 89 mL/min (>60); Glucose 165 mg/dL (74-106); Potassium 3.6 mmol/L (3.5-5.1); Sodium Level 138 mmol/L (136-145); Thyroid Stim Hormone (TSH) 1.99 uIU/mL (0.358-3.74); Troponin-I HS (w/2H Reflex) 5 pg/mL (3.0-78.0)
[2024-06-08 05:51] VITALS: BP 103/73; PULSE 66; RESP 16; O2SAT 98
[2024-06-08 05:57] LABS: BNP,B-Type NATRIURETIC PEPTIDE 4.8 pg/mL (0-100)
[2024-06-08 06:00] VITALS: PULSE 69
--- NOTE | 2024-06-08 06:59 | EX.ED.DYSGE1 ---
HPI History of Present Illness Chief Complaint: Palpitations Informant: patient Narrative Narrative: Patient is a 53-year-old male with history of atrial fibrillation, CHF, obstructive of sleep apnea, bicuspid aortic valve and hypertension presenting after couple episodes of palpitations, lightheadedness and tightness in his chest. He checked his heart rate during these episodes with a home pulse oximeter and his heart rate was 30. He is never had this happen him before and he is only had high heart rate with his A-fib. He has been compliant with his medications. He notes he recently has had about a 20 pound weight loss associated with semaglutide. Is otherwise been in his normal state of health and is been actually feeling quite well. Works third shift and after having a second episode around 3:30 AM his boss told him to come to the ER to get checked out. No other complaints or concerns at this time. Currently asymptomatic. 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 GERD (gastroesophageal reflux disease) Former smoker Asthma Atrial fibrillation Irregular heart beat CONRAD (obstructive sleep apnea) History of cardioversion (~10/10/21) Abnormal stress test Longstanding persistent atrial fibrillation Pneumonia COPD (chronic obstructive pulmonary disease) High cholesterol Hypertension Alcohol abuse Morbid obesity Benign essential hypertension Home Medications ?Medication ?Instructions ?Recorded ?Last Taken ?Type carvedilol 25 mg tablet 25 mg PO BID HEART 05/07/21 10/08/21 06:00 History omeprazole 20 mg capsule,delayed 20 mg PO BID GERD 05/07/21 10/08/21 06:00 History release turmeric root extract 500 mg 1,500 mg PO DAILY 10/03/21 10/08/21 06:00 History capsule albuterol sulfate 2.5 mg/3 mL 2.5 mg inhalation Q4H PRN 12/02/21 Unknown History (0.083 %) solution for nebulization shortness of breath or wheezing albuterol sulfate 90 mcg/actuation 2 inh inhalation Q4H PRN shortness 12/02/21 Unknown History breath activated powder inhaler of breath (ProAir RespiClick) cyclobenzaprine 10 mg tablet 10 mg PO HS PRN muscle spasm 03/04/22 Unknown History insulin lispro 100 unit/mL 5 unit subcut TIDCM DM 03/04/22 Unknown History subcutaneous cartridge (Humalog U-100 Insulin) losartan 100 mg tablet (Cozaar) 100 mg PO DAILY 01/21/24 Unknown History amlodipine 10 mg tablet 10 mg PO DAILY #90 tabs 03/23/24 Unknown Rx apixaban 5 mg tablet (Eliquis) 5 mg PO BID afib #60 tabs 03/23/24 Unknown Rx furosemide 40 mg tablet 40 mg PO BID #180 tabs 03/23/24 Unknown Rx spironolactone 25 mg tablet 25 mg PO DAILY #90 tabs 04/14/24 Unknown Rx ergocalciferol (vitamin D2) 1,250 1,250 mcg PO QWEEK 06/08/24 Unknown History mcg (50,000 unit) capsule insulin glargine-yfgn 100 unit/mL 50 unit subcut QHS 06/08/24 Unknown History (3 mL) subcutaneous pen (Semglee (insulin glargine-yfgn) Pen) semaglutide 1 mg/dose (4 mg/3 mL) 1 mg subcut QWEEK 06/08/24 Unknown History subcutaneous pen injector (Ozempic) Allergy/AdvReac Type Severity Reaction Status Date / Time gabapentin AdvReac Other Verified 06/08/24 04:51 tramadol AdvReac Other Verified 06/08/24 04:51 Family History Father Cancer Mother Diabetes Surgical History History of cardiac radiofrequency ablation (~06/04/22) H/O rotator cuff surgery Social History Smoking Status: Former smoker alcohol intake: current alcohol intake frequency: a few times a week Alcohol type: beer substance use type: does not use caffeine: Yes Type: coffee Number of servings: 1 ROS ROS ED Constitutional Constitutional ED: Denies chills or fever(s) Eyes Eyes: Denies change in vision ENT ENT ED: Denies sore throat Cardiovascular Cardiovascular: Reports chest pain and palpitations Respiratory/Chest Respiratory/Chest: Reports dyspnea; Denies cough Gastrointestinal Gastrointestinal: Denies abdominal pain, nausea or vomiting Musculoskeletal Musculoskeletal: Denies arthralgias Neurologic Neurologic: Denies headache(s) or weakness Hematologic/Lymphatic Hematologic/Lymphatic: Reports easy bleeding and other Details: On Eliquis EXAM Physical Exam Const Vital Signs: 06/08/24 04:51 06/08/24 04:51 06/08/24 05:51 Temperature 98.3 F Temperature Source Oral Pulse Rate 74 66 Respiratory Rate 16 16 Respiratory Effort Normal Non-Labored Blood Pressure 138/84 H 103/73 Blood Pressure Mean 102 83 Pulse Ox 98 98 Oxygen Delivery Method Room Air Room Air 06/08/24 06:00 Temperature Temperature Source Pulse Rate 69 Respiratory Rate Respiratory Effort Blood Pressure Blood Pressure Mean Pulse Ox Oxygen Delivery Method Positive well nourished and well developed General Appearance ED: well developed and NAD HEENT Reports moist mucous membranes Eyes PERRL Neck supple and no JVD Chest Wall inspection of chest normal and palpation of chest normal Resp normal respiratory effort and clear to auscultation bilaterally Cardio regular rate and regular rhythm GI normal to inspection, nondistended, normoactive bowel sounds Extremity normal to inspection General Extremety ED: Negative for edema General Extremity: Negative for edema Neuro oriented x3 Sensorium / Orientation: alert Motor Exam: Negative for general weakness Psych mental status grossly normal Skin no rashes or lesions noted MDM MDM MDM Narrative Medical decision making narrative: Patient evaluated for intermittent episodes of palpitations, chest discomfort and lightheadedness. Thay correlate with bradycardia on pulse oximeter. Patient currently has normal sinus rhythm and is nontoxic-appearing and asymptomatic. Lab work obtained looking for any signs of electrolyte abnormalities, thyroid dysfunction, symptomatic anemia or heart strain. Lab work largely normal. He has a very mild leukocytosis 11.5 which is pretty nonspecific. No signs of infection on physical exam or HPI. Chest x-ray viewed by myself as well as radiology does not show any acute process. Patient does not have any arrhythmia or symptoms while in the emergency room. Case discussed with cardiology on-call, Dr. Bernal. He recommends holding the patient's carvedilol today and then cutting the dose in half until he can follow-up in the office. He also recommends the patient getting a wearable monitor such as a Fitbit or Apple Watch if possible. Encouraged the patient to call the office if he has further symptoms. Discussed return precautions with the patient including low blood pressure or feel like he is going to pass out, As well as sustained bradycardia. Patient verbalized agreement understanding with this plan. I do question if his recent weight loss is made him more sensitive to his carvedilol versus an accurate measurement from his pulse oximeter however this still does not explain these episodes of chest tightness, received low heart rate and lightheadedness. Patient agreeable plan of care. Discharged home in stable condition. Lab Data Attestation: I reviewed the patient's lab results. Labs: Laboratory Results - last 24 hr 06/08/24 05:00 WBC 11.5 H RBC 5.20 Hgb 15.6 Hct 46.6 MCV 89.6 MCH 30.0 MCHC 33.5 RDW Std Deviation 42.0 RDW Coeff of Russ 12.8 Plt Count 242 MPV 11.3 Immature Gran % (Auto) 0.500 Neut % (Auto) 71.0 H Lymph % (Auto) 20.8 [place] % (Auto) 6.9 Eos % (Auto) 0.5 Baso % (Auto) 0.3 Absolute Neuts (auto) 8.1 H Absolute Lymphs (auto) 2.39 Nucleated RBC % 0 Sodium 138 Potassium 3.6 Chloride 104 Carbon Dioxide 28.0 Anion Gap 6 BUN 12 Creatinine 1.11 Est GFR (MDRD) Af Amer 89 Est GFR (MDRD) Non-Af 73 BUN/Creatinine Ratio 10.8 Glucose 165 H Calcium 9.6 Magnesium 2.0 Troponin I High Sens 5 B-Natriuretic Peptide 4.8 TSH 1.99 Radiography Diagnostic Testing: Clinical Impression(s) from Imaging Studies Chest X-Ray 06/08/24 05:08 IMPRESSION: No radiographic evidence of acute cardiopulmonary disease. 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 Discharge Plan Triage Chief Complaint: Palpitations ED Provider: Deidra Hopson Dx/Rx/DC Orders Clinical Impression: snf current use of anticoagulant, Lightheaded Instructions: ED Bradycardia, ED Dizziness, Uncertain Cause Prescriptions: No Action turmeric root extract 500 mg capsule 1,500 mg PO DAILY cyclobenzaprine 10 mg tablet 10 mg PO HS PRN (Reason: muscle spasm) ProAir RespiClick 90 mcg/actuation aerosol powdr breath activated 2 inh inhalation Q4H PRN (Reason: shortness of breath) albuterol sulfate 2.5 mg /3 mL (0.083 %) solution for nebulization 2.5 mg inhalation Q4H PRN (Reason: shortness of breath or wheezing) losartan [Cozaar] 100 mg tablet 100 mg PO DAILY carvedilol 25 mg Tablet 25 mg PO BID omeprazole 20 mg Capsule,Delayed Release(Dr/Ec) 20 mg PO BID Humalog U-100 Insulin 100 unit/mL cartridge 5 unit SUBCUT TIDCM Ozempic 1 mg/dose (4 mg/3 mL) pen injector 1 mg subcut QWEEK ergocalciferol (vitamin D2) 1,250 mcg (50,000 unit) capsule 1,250 mcg PO QWEEK insulin glargine-yfgn [Semglee(insulin glarg-yfgn)Pen] 100 unit/mL (3 mL) insulin pen 50 unit subcut QHS amlodipine 10 mg tablet 10 mg PO DAILY Qty: 90 3RF Eliquis 5 mg tablet 5 mg PO BID Qty: 60 11RF furosemide 40 mg tablet 40 mg PO BID Qty: 180 3RF spironolactone 25 mg tablet 25 mg PO DAILY Qty: 90 3RF Primary Care Provider: Ryan Colbert Referrals: Ryan Colbert MD [Primary Care Provider] - Isaias Bernal MD [Med Staff - Active Staff] - 1 Week Activity Restrictions/Additional Instructions: Hold your dose of carvedilol today. After that cut your tablet in half so you are taking 12.5 mg twice a day instead of 25 mg twice a day. Call the cardiology office to schedule follow-up next week. Let them know you were seen in the ER and Dr. Bernal wanted you to be seen next week. If you have further episodes call the office to see if you could get seen sooner. If possible we recommend wearing a device such as a Fitbit to keep track of your heart rate. If you have another episode please try to check your blood pressure during it and if it is low (the top number/systolic below 100) or you are not improving please return to the emergency room. Print Language: Mauritian Disposition Disposition: Home, Self Care
[2024-06-08 07:13] VITALS: BP 109/76; PULSE 63; PULSE 64; RESP 18; TEMP 36.7; O2SAT 96
[2024-06-08 07:13] LABS: Reflex Troponin-HS? (from REC) Y
== END 2024-06-08 07:23 | disposition home or self-care (01) ==
PROVIDERS: Emergency Provider Emergency Medicine; PCP Family Medicine; Visit Provider Emergency Medicine
DX: R42 Dizziness and giddiness (principal); I11.0 Hypertensive heart disease with heart failure; I50.9 Heart failure, unspecified; J44.9 Chronic obstructive pulmonary disease, unspecified; I48.91 Unspecified atrial fibrillation; Z79.4 Long term (current) use of insulin; E78.00 Pure hypercholesterolemia, unspecified; G47.33 Obstructive sleep apnea (adult) (pediatric); Z79.01 Long term (current) use of anticoagulants; Z79.51 Long term (current) use of inhaled steroids; Z79.899 Other long term (current) drug therapy; Z87.891 Personal history of nicotine dependence
CPT/HCPCS: 71046; 80048; 83735; 83880; 84443; 84484; 85025; 93005; 99284; A4216

== ENCOUNTER → 2024-08-02 | Outpatient (CLI) | payer OTHER, SELFPAY ==
[2024-08-02 08:46] LABS: Absolute Lymphocyte Count 1.73 X10^3/uL (0.83-4.51); Absolute Neutrophil Count 7.2 X10^3/uL (2.0-7.7); Basophil# 0.06 X10^3/uL; Basophil% 0.6 % (0-1); Eosinophil# 0.08 X10^3/uL; Eosinophils% 0.8 % (0-5); Hematocrit 44.7 % (40-54); Lymphocyte # 1.73 X10^3/ul (0.83-4.51); Lymphocyte % 17.4 % (19-41); Mean Corp Hgb Conc 33.6 g/dL (32-36); Mean Corpuscular Hgb 30.6 pg (27.0-32.0); Mean Corpuscular Volume 91.2 fL (80-94); Mean Platelet Vol. 11.8 fl (6.2-12.0); Monocyte# 0.78 X10^3/uL; Monocyte% 7.9 % (0-10); NRBC Flagged by Analyzer 0 % (0-5); Neutrophil # 7.23 X10^3/uL (2.7-7.7); Neutrophil % 72.8 % (47-70); Platelet Count 218 K/mm3 (150-450); RBC Distribution Width CV 12.8 % (11.6-14.6); RBC Distribution Width SD 42.5 fl (35.1-43.9); White Blood Count 9.9 K/mm3 (4.4-11.0)
[2024-08-02 09:16] LABS: Anion Gap 5 (5-15); BUN 7 mg/dL (7-18); BUN/Creat Ratio 7.3 RATIO (10-20); Chloride 106 mmol/L (98-107); Creatinine, Serum 0.96 mg/dL (0.70-1.30); EST Glomerular Filtration Rate 87 mL/min (>60); Est Glom Filt Rate - Afr Amer 105 mL/min (>60); Glucose 191 mg/dL (74-106); Potassium 3.7 mmol/L (3.5-5.1); Sodium Level 138 mmol/L (136-145)
== END | disposition home or self-care (01) ==
LOC: LAB 08:01
PROVIDERS: PCP Family Medicine; Referring Provider Nurse Practitioner Gerontology; Visit Provider Nurse Practitioner Gerontology
DX: I47.20 Ventricular tachycardia, unspecified (principal)
CPT/HCPCS: 36415; 80048; 83735; 84443; 85025

== ENCOUNTER → 2024-08-09 | Outpatient (CLI) | payer OTHER, SELFPAY ==
--- NOTE | 2024-08-14 10:06 | STRESSREP ---
Stress Test Report Date: 08/09/2024 Procedure: Pharmacologic stress nuclear imaging study Indications: Arrhythmia Consent: Per the patient Procedure: The patient underwent pharmacologic (Regadenoson 0.4mg ) evaluation with a peak heart rate of 85 beats per minute (51%predicted maximal heart rate) and a peak blood pressure of 120/80 mmHg. The baseline ECG demonstrated sinus rhythm. The peak pharmacologic ECG demonstrated no diagnostic ischemic changes. Frequent PVCs noted post pharmacological infusion. There was no complaint of chest discomfort during pharmacologic infusion or recovery. The patient was injected with 14.9 millicuries of technetium 99m Cardiolite and subsequently rest SPECT Cardiolite nuclear imaging was obtained in the horizontal long, vertical long, and short axis views. The patient underwent pharmacologic (Regadenoson) evaluation. The patient was injected with 44.5 millicuries of technetium 99m Cardiolite and subsequently stress SPECT Cardiolite nuclear imaging was obtained in the horizontal long, vertical long, and short axis views. A gated Cardiolite study at peak stress was obtained. The examination was stopped secondary to completion of protocol. Rest and stress SPECT Cardiolite nuclear imaging status post realignment, normalization, and attenuation correction demonstrate small reversible perfusion defect of the apex. There is end systolic thickening and brightening. The gated Cardiolite study demonstrates myocardial thickening and inward wall motion. The reported LVEF is 48%. Impression: 1. Pharmacologic (Regadenoson) evaluation 2. Peak pharmacologic ECG with no diagnostic ischemic changes. 3. Frequent PVCs noted in recovery. 5. Small reversible perfusion defect of the apex suggestive of ischemia. 6. The gated Cardiolite study reports an LVEF of %. This note was generated with [employer] software. It may contain incorrect words, spelling, and punctuation that were not noted in checking the note before signing.
== END | disposition home or self-care (01) ==
LOC: CVS 05:58
PROVIDERS: PCP Family Medicine; Referring Provider Nurse Practitioner Gerontology; Visit Provider Nurse Practitioner Gerontology
DX: I47.20 Ventricular tachycardia, unspecified (principal)
CPT/HCPCS: 78452; 93017; A9500; A4216; J2785

== ENCOUNTER 2024-09-06 07:09 | Day surgery (SDC) | payer OTHER, SELFPAY ==
--- NOTE | 2024-08-30 10:37 | RAD_ITS ---
INDICATION: Abnormal EKG, MORIN, CP EXAMINATION/TECHNIQUE: X-RAY - XR Chest 2 Views COMPARISON: 05/09/2024 chest radiograph. Findings: Frontal and lateral views of the chest. LUNG PARENCHYMA: No acute focal airspace disease or mass lesion. PLEURA: No pleural effusion. No pneumothorax. HEART/GREAT VESSELS: Cardiomediastinal silhouette is unremarkable. BONES: Osseous structures are unremarkable for age. RAD/Chest PA and Lateral IMPRESSION: Chest with no acute disease. Electronically Signed: Rian Lopez MD at 22:16 EDT ,
--- NOTE | 2024-08-30 13:55 | PCM.HP.BLA ---
History and Physical Date of Admission: 09/06/24 This is a 53-year-old white male who presents today for cardiac catheterization following an abnormal stress test. He has a history of paroxysmal atrial fibrillation with cardioversion in August and September 2021 and radiofrequency ablation on 06/04/2022 with [facility]. He also has a history of hypertension and CONRAD with BiPap, bicuspid aortic valve and dilated aortic root. From a cardiac standpoint, the patient is doing well. He denies any palpitations. He does acknowledge occasional midsternal heaviness, along with a funny feeling with his heart rhythm. He states that he just wore a 14 day event monitor. He states this occurs with exertion and at rest. He denies SOB, Orthopnea, and PND. He does not have bleeding issues; no blood in urine, stool or nosebleeds. He denies any decrease in energy level, myalgias, or claudication. He does not have edema, or sudden weight gain. He denies dizziness, lightheadedness, syncopal or near syncopal episodes, and headaches. 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 GERD (gastroesophageal reflux disease) Former smoker Asthma Atrial fibrillation Irregular heart beat CONRAD (obstructive sleep apnea) History of cardioversion (~10/10/21) Abnormal stress test Longstanding persistent atrial fibrillation Pneumonia COPD (chronic obstructive pulmonary disease) High cholesterol Hypertension Alcohol abuse Morbid obesity Benign essential hypertension Surgical History History of cardiac radiofrequency ablation (~06/04/22) H/O rotator cuff surgery Family History Father CancerMother Diabetes Social History Smoking Status: Former smoker alcohol intake: current alcohol intake frequency: a few times a week Alcohol type: beer substance use type: does not use caffeine: Yes Type: coffee Number of servings: 1 ROS Const Const: Negative for fatigue, weakness, fever(s), headache(s), chills, frequent falls, weight gain or weight loss Eyes Eyes: Negative for blind spots, loss of peripheral vision, transient loss of vision, blurry vision, change in vision, double vision, floaters or tunnel vision ENT ENT: Negative for headache(s), dizziness, Nosebleed/epistaxis, balance problems or neck pain Cardio Chest Pain: Yes Frequency: weekly Character: other (heaviness) Onset: at rest and exercise Location: mid sternal Duration: minutes and brief Palpitations: No Edema: None Muscle aches with walking: None Resp Respiratory: Negative for SOB with activity, SOB at rest or SOB orthopnea\SOB lying down GI GI: Negative nausea, vomiting, heartburn, bloating, vomiting blood/hematemesis, bright, red blood in stools or black,tarry stools Musc Musc: Negative for muscle aches/ myalgia, muscle weakness, joint pain or balance problems Neuro Neuro: Negative for dizziness, lightheadedness, near syncope, syncope, orthostatic symptoms, frequent falls, headache(s), weakness, blurry vision or double vision Yogesh Hematologic/Lymphatic: Negative for easy bleeding or easy bruising Endo Endo: Negative for fatigue Cardiology Exam Const Appearance: cooperative, healthy appearing, comfortable and no acute distress Nutritional Appearance: well nourished and obese Orientation: alert, awake and oriented x3 Head Head: normal to inspection Ears: hearing grossly normal bilaterally Nose: external nose normal Face and Sinus: face symmetric Mouth: oral mucosae normal Eyes General: appearance normal, both eyes and all related structures Eyelids: eyelids normal EOM: EOM intact bilaterally Neck Neck: normal visual inspection and no JVD Carotids: normal carotid upstroke Chest Chest inspection: normal inspection of the chest, symmetric chest movement and normal respiratory effort; Negative cough Auscultation: Bilateral: Clear to Auscultation Cardio Rate: regular rate Rhythm: regular rhythm Heart sounds: S1 normal, S2 normal and murmur; Negative rub or gallop Murmur: Grade 1/6 and JOSHUA loudest primary aortic area GI GI: normal to inspection and obese Neuro General: patient alert, patient awake, patient oriented x3 and CN's II-XI intact bilaterally Skin Skin: no rashes or lesions noted Extremities Pulses: Normal: Right Posterior Tibial Pulse, Left Posterior Tibial Pulse, Right Radial Pulse and Left Radial Pulse Lower Extremity Edema: None: Bilateral Psych Psychological: normal affect Supplemental Info Supplemental Information Echocardiogram 02/15/2024: Interpretation Summary Normal LV size. Left ventricular systolic function is normal. The left ventricular ejection fraction is 60 %. Bicuspid aortic valve. Mild focal aortic valve calcification. Mild aortic stenosis. Echocardiogram 04/2022: Interpretation Summary The study was technically difficult. Contrast injection was performed. ? Left ventricular systolic function is normal. The estimated ejection fraction is 60 %. Trivial mitral valve insufficiency. Trivial tricuspid valve insufficiency. 2D echocardiographic images performed, especially in the epigastric views, appear compatible with a bicuspid aortic valve apparatus. Mild focal aortic valve calcification. Mildly dilated aortic root. Right ventricular systolic pressure estimated to be 26 mmHg. No evidence for diastolic dysfunction. Echocardiogram 04/2021: Based upon the 2D echocardiographic and contrast enhanced images obtained there appears to be grossly normal left ventricular size, wall motion, and systolic function. The estimated ejection fraction is 55 %. The left atrium is mildly enlarged. Trivial mitral valve insufficiency. Trivial tricuspid valve insufficiency. Mildly dilated aortic root. Trivial pericardial effusion. There are no echocardiographic indications of cardiac tamponade. Right ventricular systolic pressure estimated to be 28 mmHg. Unable to assess diastolic dysfunction. Stress Test Report Date: 07-01-2021 Procedure: Pharmacologic stress nuclear imaging study Indications: Atrial fibrillation; congestive heart failure Consent: Per the patient Procedure: The patient underwent pharmacologic (Regadenoson 0.4mg ) evaluation with a peak heart rate of 126 beats per minute (74%predicted maximal heart rate) and a peak blood pressure of 150/100 mmHg. The baseline ECG demonstrated atrial fibrillation; septal KS of indeterminate age cannot be excluded; nonspecific T wave abnormality. The peak pharmacologic ECG demonstrated no obvious ECG changes. There were no cardiac dysrhythmias pretest, during pharmacologic infusion, or recovery. There was no complaint of chest discomfort during pharmacologic infusion or recovery. The examination was discontinued secondary to completion of protocol. Impression: 1. Pharmacologic (Regadenoson) evaluation 2. Peak pharmacologic ECG with continued atrial fibrillation with septal KS of indeterminate age cannot be excluded and nonspecific T wave abnormality. 3. There were no cardiac dysrhythmias pretest, during pharmacologic infusion, or recovery. 4. Nuclear images pending Myocardial perfusion imaging study: Technique: The patient was injected with 14.9 millicuries of technetium 99m Cardiolite and subsequently rest SPECT Cardiolite nuclear imaging was obtained in the horizontal long, vertical long, and short axis views. The patient underwent pharmacologic (Regadenoson) evaluation with a peak heart rate of 126 beats per minute (74% percent predicted maximal heart rate) and a peak blood pressure of 150/100 mmHg. The patient was injected with 45.0 millicuries of technetium 99m Cardiolite and subsequently stress SPECT Cardiolite nuclear imaging was obtained in the horizontal long, vertical long, and short axis views. A gated Cardiolite study at peak stress was obtained. Interpretation: Rest and stress SPECT Cardiolite nuclear imaging status post realignment, normalization, and attenuation correction demonstrate the appearance of body motion during image acquisition and the appearance status post stress with area of diminished myocardial perfusion/tracer uptake in portions of the distal inferior/inferior apical segments. There is end systolic thickening and brightening. The gated Cardiolite study demonstrates myocardial thickening and inward wall motion. The reported LVEF is 49%. Impression: 1. Rest and stress SPECT Cardiolite nuclear imaging demonstrate the appearance of body motion during image acquisition and the appearance of post stress with an area of diminished myocardial perfusion/tracer uptake in portions of the distal inferior/inferoapical segments concerning for an area of stress-induced myocardial ischemia, however, an element of shifting soft tissue attenuation/body motion cannot necessarily be excluded.. 2. The gated Cardiolite study reports an LVEF of 49%. Cardiac cath: 08/05/2021 Conculsions: Elevated Left Ventricular End Diastolic Pressure Normal LV size, wall motion,and systolic function LVEF: by LV gram 55 % Normal coronary arteries RECOMMENDATIONS Medical therapy CORONARY ANGIOGRAPHY DOMINANCE: Right Dominant LEFT HEART ASSESSMENT Left Ventricular Ejection Fraction: by LV Gram 55 % Normal LV wall motion Elevated Left Ventricular End Diastolic Pressure LVEDP: 10 mmHg LEFT MAIN: Angiographically normal LEFT ANTERIOR DESCENDING ARTERY: Angiographically normal CIRCUMFLEX ARTERY: Angiographically normal RIGHT CORONARY ARTERY: Angiographically normal AORTIC ROOT: Angiographically normal Assessment and Plan Assessment and Plan (1) Abnormal Stress Test: Status: Acute Comment: Plan: Patients stress test from 08/14/2024 demonstrated Small reversible perfusion defect of the apex suggestive of ischemia. Will proceed with a cardiac catheterization to further assess this. Depending on results, further recommendations will be made.
[2024-09-05 09:01] VITALS: BMI 43.0
[2024-09-05 12:31] LABS: Hematocrit 44.9 % (40-54); Hemoglobin 15.2 g/dL (13.0-16.5); Mean Corp Hgb Conc 33.9 g/dL (32-36); Mean Corpuscular Hgb 30.8 pg (27.0-32.0); Mean Corpuscular Volume 90.9 fL (80-94); Mean Platelet Vol. 11.4 fl (6.2-12.0); Platelet Count 246 K/mm3 (150-450); RBC Distribution Width CV 12.7 % (11.6-14.6); RBC Distribution Width SD 41.4 fl (35.1-43.9); Red Blood Count 4.94 M/mm3 (4.6-6.2); White Blood Count 12.4 K/mm3 (4.4-11.0)
[2024-09-05 12:46] LABS: International Normalized Ratio 1.1; Prothrombin Time (Protime)PT. 14.2 SECONDS (11.7-14.9)
[2024-09-05 13:26] LABS: Anion Gap 7 (5-15); BUN 10 mg/dL (7-18); Calcium,Total 9.8 mg/dL (8.5-10.1); Chloride 101 mmol/L (98-107); EST Glomerular Filtration Rate 83 mL/min (>60); Est Glom Filt Rate - Afr Amer 100 mL/min (>60); Estimated Creatinine Clearance 117.33 ml/min; Glucose 129 mg/dL (74-106); Potassium 3.7 mmol/L (3.5-5.1); Sodium Level 137 mmol/L (136-145)
--- NOTE | 2024-09-06 10:21 | CL.D_ITS ---
Patient Name: JHONATAN JORDAN Study Date: 09/06/2024 Performing: Zev Taveras MD Ht: 70 inches 177.8 cm : 1970 Wt: 300.01 lbs 136.08 kg Age: 53 Gender: male BSA: 2.48 PROCEDURE(S) PERFORMED DC01-(17796)LHC/COR/LV CLINICAL PROFILE AND INDICATIONS Heart Failure: None CONCLUSIONS No angiographic CAD LVEF 45% Mildly dilated Ascending Aorta RECOMMENDATIONS Risk factor modification Further evaluation of LV function DESCRIPTION OF PROCEDURE The patient arrived to the procedure lab. The risks and benefits of the procedure as well as a full description of our services here and current unavailability of surgical backup were fully explained to the patient and/or their significant other prior to the catheterization. The Timeout was completed, verifying the correct patient and procedure. The patient's procedural site was prepped and draped in the usual fashion. Local anesthetic was given subcutaneously to right radial region with Lidocaine 2%. Using a modified Seldinger technique, arterial access was obtained via the right radial artery, a 6Fr sheath was inserted. Left Coronary Artery selective angiography was performed in multiple views using a 5 Fr. 4.0 [place] catheter. Right Coronary Artery selective angiography was then performed in multiple views using a 5 Fr. JR 4 catheter. Left Ventriculography was performed in GRAJEDA projection using a 5 Fr. Pigtail catheter. LV to AO pullback pressures were then recorded.The arterial sheath was pulled and a TR Band was applied for hemostasis CORONARY ANGIOGRAPHY DOMINANCE: Right Dominant LEFT HEART ASSESSMENT Left Ventricular Ejection Fraction: by LV Gram 45 % LVEDP: 23 mmHg LEFT MAIN: Angiographically normal LEFT ANTERIOR DESCENDING ARTERY: Angiographically normal CIRCUMFLEX ARTERY: Angiographically normal RIGHT CORONARY ARTERY: Angiographically normal COMPLICATIONS No Complications PROCEDURE MEDICATIONS Versed 1 mg IV Fentanyl 50 mcg IV Oxygen: 2 L/min via nasal cannula Aspirin (325mg) 1 Tabs PO @ 09/06/2024 08:56:42 Heparin given IA 09/06/2024 09:32:41 Verapamil 2.5mg, Ntg 200mcgs, 2000 units of Heparin given IA 09/06/2024 09:32:41 SUMMARY OF HEMODYNAMIC DATA Time AIR REST ECG 09:16:31 AO 111/78 (90) SA 09:40:47 LV 123/13, 21 09:48:06 LV 123/13, 23 09:48:15 LV 123/24, 29 09:49:59 LV 128/22, 30 09:50:08 LVp 131/24, 09:50:37 AOp 132/87 (108) 09:50:44 Signed By Zev Taveras MD On 09/06/2024 10:20:53 Zev Taveras MD
== END 2024-09-06 11:30 | disposition home or self-care (01) ==
PROVIDERS: PCP Family Medicine; Referring Provider Internal Medicine Cardiovascular Disease; Visit Provider Internal Medicine Cardiovascular Disease
DX: R94.39 Abnormal result of other cardiovascular function study (principal); J44.9 Chronic obstructive pulmonary disease, unspecified; I48.11 Longstanding persistent atrial fibrillation; E66.01 Morbid (severe) obesity due to excess calories; Z68.43 Body mass index [BMI] 50.0-59.9, adult; I10 Essential (primary) hypertension; E78.00 Pure hypercholesterolemia, unspecified; Z87.891 Personal history of nicotine dependence; I77.810 Thoracic aortic ectasia; G47.33 Obstructive sleep apnea (adult) (pediatric); Z79.01 Long term (current) use of anticoagulants; K21.9 Gastro-esophageal reflux disease without esophagitis
CPT/HCPCS: 36415; 71046; 80048; 85027; 85610; 93458; 99152; 99153; J7040; Q9967; C1769; C1894

== ENCOUNTER → 2024-09-29 | Outpatient (CLI) | payer OTHER, SELFPAY ==
--- NOTE | 2024-09-29 13:02 | CT_ITS ---
EXAM: CT ANGIOGRAPHY CHEST WITHOUT AND WITH INTRAVENOUS CONTRAST CLINICAL INDICATION: Dilated Aortic Root TECHNIQUE: Helically acquired angiography images were obtained of the chest without and with intravenous contrast. This CT exam was performed using one or more of the following dose reduction techniques: automated exposure control, adjustment of the mA and/or kV according to patient size, and/or use of iterative reconstruction technique. MIP reconstructed images were created and reviewed. CONTRAST: 100 cc of Isovue-370 IV. RADIATION DOSE: CTDIvol = 20.97 mGy, DLP = 595.26 mGy-cm COMPARISON: No relevant prior studies available. FINDINGS: PULMONARY ARTERIES: Unremarkable. Normal in caliber. No evidence of pulmonary embolism. AORTA: The aortic root measures up to 4.4 cm in diameter. No aortic dissection. GREAT VESSELS OF AORTIC ARCH: Unremarkable. Normal in caliber. No evidence of dissection. LUNGS AND PLEURAL SPACES: Unremarkable. No mass. No consolidation or edema. No pleural effusion or thickening. No pneumothorax. HEART: Unremarkable. Heart size is normal. No pericardial effusion. No significant coronary artery calcifications. MEDIASTINUM: Unremarkable. No mediastinal or hilar adenopathy. Esophagus is unremarkable. No hiatal hernia. THYROID: Unremarkable. No thyroid lesions. BONES/JOINTS: Unremarkable. No suspicious lytic or blastic abnormality. 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 No dissection. Electronically Signed: Isaias Lee MD at 22:21 EDT ,
== END | disposition home or self-care (01) ==
LOC: CT 13:00
PROVIDERS: PCP Family Medicine; Referring Provider Nurse Practitioner Gerontology; Visit Provider Nurse Practitioner Gerontology
DX: I77.810 Thoracic aortic ectasia (principal); Q23.1 Congenital insufficiency of aortic valve
CPT/HCPCS: 71275; Q9967

== ENCOUNTER → 2025-02-01 | Outpatient (CLI) | payer OTHER, SELFPAY ==
--- NOTE | 2025-02-01 07:39 | ECHOL_ITS ---
Reason For Study Reason For Study: LOW EF on MRI Procedure This was a limited 2D transthoracic echocardiogram. Myocardial strain analysis was performed in this exam to aid in the assessment of cardiac function. Exam performed in department. Left Ventricle Normal size and thickness. Normal LV systolic function. Estimated LVEF 55%. Global longitudinal strain -17.8%. Normal. Right Ventricle Normal RV size. Mild global right ventricular systolic dysfunction. Atria The left and right atria are normal. Mitral Valve Normal mitral valve. Tricuspid Valve Normal tricuspid valve. Aortic Valve The aortic valve is not well visualized in the short axis view. Pulmonic Valve The pulmonic valve is not well visualized. Great Vessels Mild to moderately dilated aortic root. Pericardium/Pleural No pericardial effusion. MMode/2D Measurements & Calculations LVIDd: 4.7 cm IVSd: 1.1 cm Ao root diam: 4.3 cm LVIDs: 3.2 cm LVPWd: 1.1 cm FS: 31.7 % LAV(MOD-bp): 75.5 ml LVAd ap4: 37.2 cm2 LVAd ap2: 28.2 cm2 LAV(MOD-bp) Indexed: 31.8 ml/m2 LVLd ap4: 8.9 cm LVLd ap2: 8.0 cm LAV(MOD-sp2): 71.4 ml EDV(MOD-sp4): 133.2 ml EDV(MOD-sp2): 81.4 ml LAV(MOD-sp4): 72.9 ml EDV(sp4-el): 131.7 ml EDV(sp2-el): 84.6 ml LVAs ap4: 22.4 cm2 LVAs ap2: 17.5 cm2 LVLs ap4: 7.6 cm LVLs ap2: 6.9 cm ESV(MOD-sp4): 58.0 ml ESV(MOD-sp2): 39.1 ml ESV(sp4-el): 56.0 ml ESV(sp2-el): 37.8 ml EF(MOD-sp4): 56.4 % EF(MOD-sp2): 52.0 % EF(sp4-el): 57.5 % SV(MOD-sp4): 75.2 ml SV(MOD-sp2): 42.3 ml SV(sp4-el): 75.7 ml SI(MOD-sp4): 31.7 ml/m2 SI(MOD-sp2): 17.8 ml/m2 LA A4 area: 21.8 cm2 LA dimension(2D): 3.5 cm RA A4 area: 16.3 cm2 ECHO/Echo, Limited Study Interpretation Summary Limited echocardiogram. Normal LV systolic function. Estimated LVEF 55%. Global longitudinal strain -17 .8%. Normal. Mild global right ventricular systolic dysfunction. Mild to moderately dilated aortic root. Ordering Physician: Bubba Howard Referring Physician: Kevin Colbert Performed By: Aura Ribeiro RDCS, RVT
== END | disposition home or self-care (01) ==
LOC: CVS 07:37
PROVIDERS: PCP Family Medicine; Referring Provider Nurse Practitioner Family; Visit Provider Nurse Practitioner Family
DX: I77.810 Thoracic aortic ectasia (principal); I48.0 Paroxysmal atrial fibrillation; I42.8 Other cardiomyopathies; Q23.1 Congenital insufficiency of aortic valve; I10 Essential (primary) hypertension
CPT/HCPCS: 93308

== ENCOUNTER → 2025-02-13 | Outpatient (CLI) | payer OTHER, SELFPAY | END | disposition home or self-care (01) | LOC: PSN 06:32 | PROVIDERS: PCP Family Medicine; Referring Provider Nurse Practitioner Family; Visit Provider Nurse Practitioner Family | DX: I48.0 Paroxysmal atrial fibrillation (principal) | CPT/HCPCS: 93225; 93226 ==